=== PATIENT | female | born 1990 | race African-American/Black ===

== ENCOUNTER 2017-12-20 13:35 | Emergency (ER) | payer MEDICAID ==
[~2017-12-20] VITALS: Ht 157.5 cm; Wt 93.6 kg
[2017-12-20 13:39] VITALS: BP 198/119; PULSE 119; RESP 18; TEMP 99.5; O2SAT 99
[2017-12-20] MEDS ORDERED: SODIUM CHLOR 0.9% 1000 ML INJ 1,000 ML IV SCH (14:39)
--- NOTE | 2017-12-20 14:44 | PD ---
HPI Chief Complaint: Pain: Acute or Chronic Time Seen by Provider: 14:39 Travel History International Travel<30 days: No Contact w/Intl Traveler<30days: No Traveled to known affect area: No History of Present Illness HPI This is a 27-year-old female who presents for evaluation. She reports over the past few days she's been having fevers, chills, cough, sore throat, upper abdominal pain. Symptoms are mild to moderate, no aggravating leading factors. She does also endorse generalized chronic myalgias for the past 3 years. She reports that she has been seen at numerous emergency rooms and she was told that she likely has lupus. She has been referred to a drilling superintendent but has been unable to see one yet. She does report that 2 of her children have similar cough and cold symptoms. She has no other complaints at this time. PFS Past Medical History ?: Not Social History Alcohol Use: No Tobacco Use: No Allergies-Medications (Allergen,Severity, Reaction): Coded Allergies: No Known Allergies (Verified Allergy, Unknown, 12/20/17) Review of Systems Except as stated in HPI: all other systems reviewed are Neg Physical Exam Narrative GENERAL: Well-nourished female in no acute distress SKIN: Warm and dry. HEAD: Atraumatic. Normocephalic. EYES: Pupils equal and round. No scleral icterus. No injection or drainage. ENT: No nasal bleeding or discharge. Mucous membranes pink and moist. NECK: Trachea midline. No JVD. Neck supple full range of motion. No lymphadenopathy. CARDIOVASCULAR: Regular rate and rhythm. No murmur appreciated. RESPIRATORY: No accessory muscle use. Clear to auscultation. Breath sounds equal bilaterally. GASTROINTESTINAL: Abdomen soft, mild left upper quadrant tenderness without guarding. No CVA tenderness. MUSCULOSKELETAL: No obvious deformities. No clubbing. No cyanosis. No edema. NEUROLOGICAL: Awake and alert. No obvious cranial nerve deficits. Motor grossly within normal limits. Normal speech. PSYCHIATRIC: Appropriate mood and affect; insight and judgment normal. Data Data Last Documented VS Vital Signs Date Time Temp Pulse Resp B/P (MAP) Pulse Ox O2 Delivery O2 Flow Rate FiO2 12/20/17 16:38 20 12/20/17 16:19 98.6 12/20/17 13:39 119 99 Orders Orders Complete Blood Count With Diff (12/20/17 14:39) Comprehensive Metabolic Panel (12/20/17 14:39) Lipase (12/20/17 14:39) Urinalysis - C+S If Indicated (12/20/17 14:39) Sodium Chlor 0.9% 1000 Ml Inj (Ns 1000 M (12/20/17 14:39) Ketorolac Inj (Toradol Inj) (12/20/17 14:45) Ed Urine Pregnancytest Poc (12/20/17 14:39) Influenzae A/B Antigen (12/20/17 14:39) Chest, Single Ap (12/20/17 ) Group A Rapid Strep Screen (12/20/17 14:39) Acetaminophen (Tylenol) (12/20/17 14:45) Strep Culture (Group A) (12/20/17 14:52) Urine Culture (12/20/17 15:49) Labs Laboratory Tests Test 12/20/17 14:52 12/20/17 15:49 White Blood Count 3.9 TH/MM3 Red Blood Count 4.58 MIL/MM3 Hemoglobin 8.5 GM/DL Hematocrit 27.3 % Mean Corpuscular Volume 59.5 FL Mean Corpuscular Hemoglobin 18.6 PG Mean Corpuscular Hemoglobin Concent 31.3 % Red Cell Distribution Width 22.2 % Platelet Count 616 TH/MM3 Mean Platelet Volume 8.3 FL Neutrophils (%) (Auto) 63.7 % Lymphocytes (%) (Auto) 30.6 % Monocytes (%) (Auto) 5.1 % Eosinophils (%) (Auto) 0.4 % Basophils (%) (Auto) 0.2 % Neutrophils # (Auto) 2.5 TH/MM3 Lymphocytes # (Auto) 1.2 TH/MM3 Monocytes # (Auto) 0.2 TH/MM3 Eosinophils # (Auto) 0.0 TH/MM3 Basophils # (Auto) 0.0 TH/MM3 CBC Comment DIFF FINAL Differential Comment Blood Urea Nitrogen 9 MG/DL Creatinine 0.62 MG/DL Random Glucose 87 MG/DL Total Protein 9.0 GM/DL Albumin 2.4 GM/DL Calcium Level 8.2 MG/DL Alkaline Phosphatase 113 U/L Aspartate Amino Transf (AST/SGOT) 74 U/L Alanine Aminotransferase (ALT/SGPT) 28 U/L Total Bilirubin 0.1 MG/DL Sodium Level 140 MEQ/L Potassium Level 3.4 MEQ/L Chloride Level 107 MEQ/L Carbon Dioxide Level 25.1 MEQ/L Anion Gap 8 MEQ/L Estimat Glomerular Filtration Rate 142 ML/MIN Lipase 52 U/L Urine Color YELLOW Urine Turbidity HAZY Urine pH 6.0 Urine Specific [place] 1.027 Urine Protein 100 mg/dL Urine Glucose (UA) NEG mg/dL Urine Ketones NEG mg/dL Urine Occult Blood MOD Urine Nitrite POS Urine Bilirubin NEG Urine Urobilinogen LESS THAN 2.0 MG/DL Urine Leukocyte Esterase TRACE Urine RBC 15 /hpf Urine WBC 4 /hpf Urine Squamous Epithelial Cells 15 /hpf Urine Amorphous Sediment RARE Urine Bacteria MANY /hpf Urine Mucus MANY /lpf Microscopic Urinalysis Comment CULTURE INDICATED MDM Medical Decision Making Medical Screen Exam Complete: Yes Emergency Medical Condition: Yes Medical Record Reviewed: Yes Differential Diagnosis Pneumonia, bronchitis, influenza, UTI, dehydration, electrolyte abnormality Narrative Course The patient was given IV fluids. Lab work was performed. She does have a microcytic anemia. Her urinalysis, although contaminated, reveals positive nitrites, leukocytes, hematuria. Chest x-ray reveals basilar opacities. The patient be given Levaquin which will cover for community acquired pneumonia as well as urinary tract infection. She does report a history of microcytic anemia. She is encouraged to follow-up with a primary care physician. She is stable for discharge. Diagnosis Primary Impression: UTI (urinary tract infection) Additional Impressions: Pneumonia Microcytic anemia Additional Instructions: Medication as prescribed. Follow up with primary care physician. Return for any emergent medical conditions. Med/Other Pt SpecificInfo: Prescription(s) given Scripts Levofloxacin (Levaquin) 500 Mg Tablet 500 MG PO DAILY for Infection for 7 Days, #7 TAB 0 Refills Prov: Vinnie Campoverde MD 12/20/17 Disposition: 01 DISCHARGE HOME Condition: Stable Giancarlo Castro Dec 20, 2017 14:44
[2017-12-20] MEDS ORDERED: KETOROLAC TROMETHAMINE 30 MG/ML (IVP) VIAL IVP ONE (14:45)
[2017-12-20] MEDS ORDERED: ACETAMINOPHEN 325 MG TAB PO ONE (14:45)
[2017-12-20 15:37] LABS: ALBUMIN 2.4 GM/DL (3.4-5.0); ALT (GPT) 28 U/L (10-53); AST (GOT) 74 U/L (15-37); BICARBONATE 25.1 MEQ/L (21.0-32.0); BLOOD UREA NITROGEN 9 MG/DL (7-18); CALCIUM 8.2 MG/DL (8.5-10.1); CHLORIDE 107 MEQ/L (98-107); CREATININE 0.62 MG/DL (0.50-1.00); GLOMERULAR FILTRATION RATE 142 ML/MIN (>89); GLUCOSE,RANDOM 87 MG/DL (74-106); SODIUM (NA) 140 MEQ/L (136-145)
[2017-12-20 15:39] LABS: ALKALINE PHOSPHATASE 113 U/L (45-117); TOTAL BILIRUBIN ADULT 0.1 MG/DL (0.2-1.0)
[2017-12-20 15:41] LABS: AUTOMATED NEUTROPHIL # 2.5 TH/MM3 (1.8-7.7); BASOPHIL % 0.2 % (0.0-2.0); EOSINOPHIL % 0.4 % (0.0-4.0); HEMATOCRIT 27.3 % (35.0-46.0); HEMOGLOBIN 8.5 GM/DL (11.6-15.3); LYMPH % 30.6 % (9.0-44.0); LYMPHOCYTE # 1.2 TH/MM3 (1.0-4.8); MEAN CELL VOLUME 59.5 FL (80.0-100.0); MEAN CORPUSCULAR HEMOGLOBIN 18.6 PG (27.0-34.0); MEAN CORPUSCULAR HGB CONC 31.3 % (32.0-36.0); MEAN PLATELET VOLUME 8.3 FL (7.0-11.0); MONO % 5.1 % (0.0-8.0); MONOCYTE # 0.2 TH/MM3 (0-0.9); NEUT % 63.7 % (16.0-70.0); PLATELET COUNT 616 TH/MM3 (150-450); RED BLOOD COUNT 4.58 MIL/MM3 (4.00-5.30); RED CELL DISTRIBUTION WIDTH 22.2 % (11.6-17.2); WHITE BLOOD COUNT 3.9 TH/MM3 (4.0-11.0)
[2017-12-20 16:19] VITALS: TEMP 98.6
[2017-12-20 16:27] LABS: AMORPHOUS SEDIMENT, URINE RARE; BACTERIA, URINE MANY /hpf; BILIRUBIN, URINE NEG (NEG); BLOOD, URINE MOD (NEG); GLUCOSE,URINE NEG (NEG); KETONE, URINE NEG (NEG); MUCUS URINE MANY /lpf (OCC); NITRITE,URINE POS (NEG); SQUAMOUS EPITHELIAL CELL URINE 15 /hpf (0-5); URINE COLOR YELLOW (YELLW/STRAW); URINE LEUKOCYTE ESTERASE TRACE (NEG)
[2017-12-20 16:38] VITALS: RESP 20
--- NOTE | 2017-12-20 16:38 | RADRPT ---
EXAM DATE/TIME: 12/20/2017 15:21 [facility] COMPARISON: No previous studies available for comparison. INDICATIONS : Flu symptoms for 2 days. MEDICAL HISTORY : None. SURGICAL HISTORY : None. ENCOUNTER: Initial ACUITY: 2 days PAIN SCORE: 0/10 LOCATION: Bilateral chest FINDINGS: Number mild bibasilar parenchymal opacities identified. A counter for projection, cardiac contours ar e satisfactory. CONCLUSION: Slight basilar parenchymal opacities. Everardo Cosme MD on December 20, 2017 at 16:36 Board Certified Radiologist. This report was verified electronically.
[2017-12-20] MEDS ORDERED: LEVA500T33 PO (16:45)
== END 2017-12-20 17:15 | disposition home or self-care (01) ==
LOC: NEPK 13:35
DX: N39.0 Urinary tract infection, site not specified (principal); B96.20 Unspecified Escherichia coli [E. coli] as the cause of diseases classified elsewhere; J18.9 Pneumonia, unspecified organism; D50.9 Iron deficiency anemia, unspecified; M79.1 Myalgia
CPT/HCPCS: 71045; 80053; 81001; 83690; 84703; 85025; 87077; 87081; 87086; 87186; 87804; 87880; 96360; 96361; 99284; J7030

== ENCOUNTER 2018-01-03 12:59 | Emergency (ER) | payer MEDICAID ==
[~2018-01-03] VITALS: Ht 157.5 cm; Wt 80.0 kg
[~2018-01-03 12:59] MED LIST: LEVA500T33 PO
[2018-01-03 13:01] VITALS: BP 203/112; PULSE 133; RESP 18; TEMP 97.6; O2SAT 95
[2018-01-03] MEDS ORDERED: DICL75TA PO (13:52)
[2018-01-03] MEDS ORDERED: TETANUS/DIPHTHERIA TOXOID ADULT 0.5 ML VIAL IM ONE (14:00)
[2018-01-03] MEDS ORDERED: AUGM875T3 PO (14:03)
--- NOTE | 2018-01-03 14:03 | PD ---
HPI . Dog bite Chief Complaint: Skin Problem Time Seen by Provider: 13:47 Travel History International Travel<30 days: No Contact w/Intl Traveler<30days: No Traveled to known affect area: No History of Present Illness HPI Patient presents with a dog bite to left hand. It occurred yesterday. The dog' s shots are up-to-date. The patient's tetanus is not up-to-date. She denies any known drug allergies. Increased pain at the site today along with a scant amount of purulent drainage. Her pain is very mild. It is exacerbated by palpation. PFSH Past Medical History Autoimmune Disease: Yes (lupus) Diabetes: Yes Patient Takes Glucophage: No ?: Not LMP: 12/08/17 Tubal Ligation: Yes Social History Alcohol Use: No Tobacco Use: No Substance Use: No Allergies-Medications (Allergen,Severity, Reaction): Coded Allergies: No Known Allergies (Verified Allergy, Unknown, 12/20/17) Reported Meds & Prescriptions Reported Meds & Active Scripts Active Reported Diclofenac Sodium DR (Diclofenac Sodium) 75 Mg Tabdr 75 Mg PO BID Review of Systems Except as stated in HPI: all other systems reviewed are Neg General / Constitutional: No: Fever, Chills Skin: Positive Other Physical Exam Narrative GENERAL: Awake and alert and in no acute distress. SKIN: Warm and dry. She has a superficial laceration on the palm of the left hand at the base of the index finger. There is an area about the size of a quarter around the wound which is erythematous and tender. She does have full range of motion of the MCP joint. No pain with movement of the finger. HEAD: Normocephalic/atraumatic. EYES: Pupils are equal. Extraocular movements are intact. NECK: Normal range of motion. CARDIOVASCULAR: Regular rate and rhythm. RESPIRATORY: Nonlabored respirations. MUSCULOSKELETAL: Atraumatic. NEUROLOGICAL: Nonfocal. PSYCHIATRIC: Appropriate mood and affect. Data Data Last Documented VS Vital Signs Date Time Temp Pulse Resp B/P (MAP) Pulse Ox O2 Delivery O2 Flow Rate FiO2 01/03/18 13:01 97.6 133 18 203/112 (142) 95 Orders Orders Tetanus/Diphtheria Tox Adult (Tetanus/Di (01/03/18 14:00) MDM Medical Decision Making Medical Screen Exam Complete: Yes Emergency Medical Condition: Yes Differential Diagnosis Differential diagnosis of animal bite includes but is not limited to wound, wound infection, retained foreign body, open fracture, sepsis, rabies. Narrative Course Patient presents for treatment of a dog bite to her left hand. Tetanus will be updated. She will be treated with Augmentin. The wound looks mildly infected. Diagnosis Primary Impression: Dog bite of hand Qualified Codes: S61.452A - Open bite of left hand, initial encounter; W54.0XXA - Bitten by dog, initial encounter Patient Instructions: Animal Bite (DC), General Instructions Med/Other Pt SpecificInfo: Prescription(s) given Scripts Amoxicillin-Clavulanate (Augmentin) 875-125 Mg Tab 1 TAB PO BID for Infection, #10 TAB 0 Refills Prov: Shiloh Forbes MD 01/03/18 Disposition: 01 DISCHARGE HOME Condition: Stable Shiloh Forbes MD Jan 03, 2018 14:03
== END 2018-01-03 14:41 | disposition home or self-care (01) ==
LOC: NEPD 12:59
DX: S61.452A Open bite of left hand, initial encounter (principal); W54.0XXA Bitten by dog, initial encounter; Z23 Encounter for immunization
CPT/HCPCS: 90471; 90714

== ENCOUNTER 2018-01-14 23:55 | Emergency (ER) | payer MEDICAID ==
[~2018-01-14] VITALS: Ht 157.5 cm; Wt 80.0 kg
[~2018-01-14 23:55] MED LIST changes: +AUGM875T3 PO; +DICL75TA PO; -LEVA500T33 PO
[2018-01-15 00:23] VITALS: BP 189/119; PULSE 117; RESP 16; TEMP 98.5; O2SAT 99
[2018-01-15 05:24] VITALS: BP 183/106; PULSE 113; RESP 16; O2SAT 98
[2018-01-15] MEDS ORDERED: FERR325T18 PO (05:27)
[2018-01-15] MEDS ORDERED: MELO15TA20 PO (05:27)
[2018-01-15] MEDS ORDERED: PRED5TAB PO (05:27)
[2018-01-15] MEDS ORDERED: LABETALOL HCL 100 MG/20 ML VIAL IV PUSH ONE (05:45)
--- NOTE | 2018-01-15 05:53 | PD ---
HPI Chief Complaint: Chest Pain Time Seen by Provider: 05:18 Travel History International Travel<30 days: No Contact w/Intl Traveler<30days: No Traveled to known affect area: No History of Present Illness HPI 27-year-old female complaining of myalgia and arthralgia chest pain and elevated blood pressure. Patient states that his symptoms started a few years ago. Patient has been seen by family physician for that. Patient has history of hypoglycemia. Patient was seen by energy professional yesterday and was advised that she probably had fluid in her lung and also blood pressure was elevated. Patient was advised to go to the emergency room for evaluation. Patient denies any headache. Patient denies any visual change. Patient denies any neck pain. Patient states that she had intermittent substernal chest pressure which lasted a few seconds and resolved completely. Patient states her chest pain is not associated with exertion. Patient states that she had intermittent that the cough. Patient states that she had intermittent fever at home. Patient denies abdominal pain. Patient denies any nausea vomiting diarrhea. Patient states that she has diffuse extremity pain and swelling for years. Patient denies any family history of lupus or rheumatoid arthritis. Patient denies any history of thyroid disease. Patient is on iron pills, prednisone 5 mg daily for the past 2 weeks and diclofenac 75 mg daily. PFSH Past Medical History Autoimmune Disease: Yes (lupus) Diabetes: Yes Patient Takes Glucophage: No Tetanus Vaccination: < 5 Years Influenza Vaccination: No ?: Not LMP: 12/22/2017 Tubal Ligation: Yes Social History Alcohol Use: No Tobacco Use: No Substance Use: No Allergies-Medications (Allergen,Severity, Reaction): Coded Allergies: No Known Allergies (Verified Allergy, Unknown, 01/15/18) Reported Meds & Prescriptions Reported Meds & Active Scripts Active Reported Ferrous Sulfate 325 Mg (65 Mg Iron) Tablet 325 Mg PO DAILY Prednisone 5 Mg Tab 5 Mg PO DAILY Meloxicam 15 Mg Tab 15 Mg PO DAILY Diclofenac Sodium DR (Diclofenac Sodium) 75 Mg Tabdr 75 Mg PO BID Review of Systems General / Constitutional: No: Fever Eyes: No: Visual changes HENT: No: Headaches Cardiovascular: Positive: Chest Pain or Discomfort Respiratory: Positive: Cough, No: Shortness of Breath Gastrointestinal: No: Abdominal Pain Genitourinary: No: Dysuria Musculoskeletal: Positive: Edema, Pain Skin: No Rash Neurologic: No: Weakness Psychiatric: No: Depression Endocrine: No: Polydipsia Hematologic/Lymphatic: No: Easy Bruising Physical Exam Narrative GENERAL: Well-nourished, well-developed patient. SKIN: Focused skin assessment warm/dry. HEAD: Normocephalic. EYES: No scleral icterus. No injection or drainage. NECK: Supple, trachea midline. No JVD or lymphadenopathy. CARDIOVASCULAR: Regular rate and rhythm without murmurs, gallops, or rubs. RESPIRATORY: Breath sounds equal bilaterally. No accessory muscle use. Patient has few rhonchi at the bases. GASTROINTESTINAL: Abdomen soft, non-tender, nondistended. MUSCULOSKELETAL: No cyanosis. Patient had blood on the +2 pitting edema lower extremity. BACK: Nontender without obvious deformity. No CVA tenderness. Neurologic exam: Normal. Data Data Last Documented VS Vital Signs Date Time Temp Pulse Resp B/P (MAP) Pulse Ox O2 Delivery O2 Flow Rate FiO2 01/15/18 06:25 105 16 162/83 (109) 100 Room Air 01/15/18 00:23 98.5 Orders Orders Electrocardiogram (01/15/18 05:35) Complete Blood Count With Diff (01/15/18 05:35) Comprehensive Metabolic Panel (01/15/18 05:35) Creatine Kinase (Cpk) (01/15/18 05:35) Troponin I (01/15/18 05:35) B-Type Natriuretic Peptide (01/15/18 05:35) Prothrombin Time / Inr (Pt) (01/15/18 05:35) Act Partial Throm Time (Ptt) (01/15/18 05:35) Urinalysis - C+S If Indicated (01/15/18 05:35) Thyroid Stimulating Hormone (01/15/18 05:35) Chest, Single Ap (01/15/18 05:35) Iv Access Insert/Monitor (01/15/18 05:35) Ecg Monitoring (01/15/18 05:35) Oximetry (01/15/18 05:35) Labetalol Inj (Trandate Inj) (01/15/18 05:45) D-Dimer (01/15/18 05:30) Labs Laboratory Tests Test 01/15/18 05:30 White Blood Count 3.3 TH/MM3 Red Blood Count 4.50 MIL/MM3 Hemoglobin 8.1 GM/DL Hematocrit 26.4 % Mean Corpuscular Volume 58.7 FL Mean Corpuscular Hemoglobin 18.0 PG Mean Corpuscular Hemoglobin Concent 30.7 % Red Cell Distribution Width 21.8 % Platelet Count 504 TH/MM3 Mean Platelet Volume 8.1 FL Neutrophils (%) (Auto) 61.7 % Lymphocytes (%) (Auto) 33.9 % Monocytes (%) (Auto) 3.7 % Eosinophils (%) (Auto) 0.4 % Basophils (%) (Auto) 0.3 % Neutrophils # (Auto) 2.1 TH/MM3 Lymphocytes # (Auto) 1.1 TH/MM3 Monocytes # (Auto) 0.1 TH/MM3 Eosinophils # (Auto) 0.0 TH/MM3 Basophils # (Auto) 0.0 TH/MM3 CBC Comment DIFF FINAL Differential Comment Prothrombin Time 10.5 SEC Prothromb Time International Ratio 1.0 RATIO Activated Partial Thromboplast Time 25.0 SEC D-Dimer Quantitative (PE/DVT) 16.51 MG/L FEU Blood Urea Nitrogen 14 MG/DL Creatinine 0.78 MG/DL Random Glucose 97 MG/DL Total Protein 8.5 GM/DL Albumin 2.2 GM/DL Calcium Level 8.4 MG/DL Alkaline Phosphatase 118 U/L Aspartate Amino Transf (AST/SGOT) 32 U/L Alanine Aminotransferase (ALT/SGPT) 12 U/L Total Bilirubin 0.2 MG/DL Sodium Level 140 MEQ/L Potassium Level 3.8 MEQ/L Chloride Level 107 MEQ/L Carbon Dioxide Level 25.5 MEQ/L Anion Gap 8 MEQ/L Estimat Glomerular Filtration Rate 109 ML/MIN Total Creatine Kinase 107 U/L Troponin I LESS THAN 0.02 NG/ML B-Type Natriuretic Peptide 99 PG/ML Thyroid Stimulating Hormone 3rd Gen 3.950 uIU/ML MDM Medical Decision Making Medical Screen Exam Complete: Yes Emergency Medical Condition: Yes Interpretation(s) 6:53 AM. EKG showed sinus tachycardia rate 111. Nonspecific ST-T wave change. Last Impressions Chest X-Ray 01/15/18 0535 Signed Impressions: Service Date/Time: Monday, January 15, 2018 05:52 - CONCLUSION: Stable chest x-ray with underinflation and atelectasis at the lung bases. Everardo Castro MD CBC WBC 3.3. Hemoglobin 8.1. Hematocrit 26.4. MCV 58.7. Platelets 504. Normal differential. Cardiac enzymes are normal. BNP 99. TSH 3.95. D-dimer 16.51. Differential Diagnosis Differential diagnoses including myalgia arthralgia, rheumatoid arthritis, lupus , uncontrolled hypertension. Narrative Course 27-year-old female with intermittent chest pain, coughing, myalgia or arthralgia and swelling of the joints. Patient being workup for rheumatoid arthritis. Fritz Sutton MD Jan 15, 2018 05:53
[2018-01-15 06:12] LABS: AUTOMATED NEUTROPHIL # 2.1 TH/MM3 (1.8-7.7); BASOPHIL % 0.3 % (0.0-2.0); EOSINOPHIL % 0.4 % (0.0-4.0); HEMATOCRIT 26.4 % (35.0-46.0); HEMOGLOBIN 8.1 GM/DL (11.6-15.3); LYMPH % 33.9 % (9.0-44.0); LYMPHOCYTE # 1.1 TH/MM3 (1.0-4.8); MEAN CELL VOLUME 58.7 FL (80.0-100.0); MEAN CORPUSCULAR HGB CONC 30.7 % (32.0-36.0); MEAN PLATELET VOLUME 8.1 FL (7.0-11.0); MONO % 3.7 % (0.0-8.0); MONOCYTE # 0.1 TH/MM3 (0-0.9); NEUT % 61.7 % (16.0-70.0); PLATELET COUNT 504 TH/MM3 (150-450); RED CELL DISTRIBUTION WIDTH 21.8 % (11.6-17.2); WHITE BLOOD COUNT 3.3 TH/MM3 (4.0-11.0)
--- NOTE | 2018-01-15 06:16 | RADRPT ---
EXAM DATE/TIME: 01/15/2018 05:52 [facility] COMPARISON: CHEST SINGLE AP, December 20, 2017, 15:21. INDICATIONS : Chest pain. MEDICAL HISTORY : None. SURGICAL HISTORY : None. ENCOUNTER: Initial ACUITY: 1 day PAIN SCORE: 10 LOCATION: Bilateral chest FINDINGS: Portable AP view of the chest demonstrates enlargement of the cardiac silhouette. Lungs are underinfl ated with atelectasis at the lung bases. No effusion, consolidation, or pneumothorax is identified. T he bones and soft tissues demonstrate no acute finding. CONCLUSION: Stable chest x-ray with underinflation and atelectasis at the lung bases. Everardo Castro MD on January 15, 2018 at 6:14 Board Certified Radiologist. This report was verified electronically.
[2018-01-15 06:25] VITALS: BP 162/83; PULSE 105; RESP 16; O2SAT 100
[2018-01-15 06:28] LABS: ALBUMIN 2.2 GM/DL (3.4-5.0); ALT (GPT) 12 U/L (10-53); AST (GOT) 32 U/L (15-37); BICARBONATE 25.5 MEQ/L (21.0-32.0); BLOOD UREA NITROGEN 14 MG/DL (7-18); CALCIUM 8.4 MG/DL (8.5-10.1); CHLORIDE 107 MEQ/L (98-107); CREATININE 0.78 MG/DL (0.50-1.00); GLOMERULAR FILTRATION RATE 109 ML/MIN (>89); GLUCOSE,RANDOM 97 MG/DL (74-106); SODIUM (NA) 140 MEQ/L (136-145)
[2018-01-15 06:34] LABS: PROTHROMBIN TIME - PATIENT 10.5 SEC (9.8-11.6)
[2018-01-15 06:37] LABS: ALKALINE PHOSPHATASE 118 U/L (45-117); TOTAL BILIRUBIN ADULT 0.2 MG/DL (0.2-1.0); TOTAL PROTEIN 8.5 GM/DL (6.4-8.2); TROPONIN I LESS THAN 0.02 NG/ML (0.02-0.05)
[2018-01-15 06:49] LABS: D-DIMER 16.51 MG/L FEU (0.00-0.50)
[2018-01-15] MEDS ORDERED: IOHEXOL 350 MG/ML 10 ML VIAL (for RAD DIAG) IVCONTRAST ONE (07:32)
--- NOTE | 2018-01-15 07:54 | RADRPT ---
EXAM DATE/TIME: 01/15/2018 07:29 [facility] COMPARISON: No previous studies available for comparison. INDICATIONS : Chest pain IV CONTRAST: 78 cc Omnipaque 350 (iohexol) IV RADIATION DOSE: 17.29 CTDIvol (mGy) MEDICAL HISTORY : Lupus. Diabetes mellitus type 1. SURGICAL HISTORY : None. ENCOUNTER: Initial ACUITY: 1 day PAIN SCALE: 5/10 LOCATION: Chest pain TECHNIQUE: Volumetric scanning of the chest was performed using a pulmonary embolism protocol MIP images were re constructed. Using automated exposure control and adjustment of the mA and/or kV according to patien t size, radiation dose was kept as low as reasonably achievable to obtain optimal diagnostic quality images. DICOM format image data is available electronically for review and comparison. Follow-up recommendations for detected pulmonary nodules are based at a minimum on nodule size and pa tient risk factors according to Fleischner Society Guidelines. FINDINGS: PULMONARY ARTERIES: No filling defects are seen in the pulmonary arteries through the segmental level. LUNGS: The lungs are hypoaerated. There is no significant airspace disease or congestion. Minimal atelectasi s is identified in the bases. PLEURAE: Minimal pleural thickening is identified in both lung bases posteriorly. MEDIASTINUM: The heart is moderately to markedly enlarged. There are no hilar mediastinal masses. MUSCULOSKELETAL: Within normal limits for patient age. MISCELLANEOUS: Multiple enlarged lymph nodes are identified in the axilla ranging in size up to 2.2 cm. The visualiz ed upper abdominal organs demonstrate no acute abnormality. CONCLUSION: 1. No evidence of pulmonary embolism. 2. Poor lung aeration with minimal basilar atelectasis but no evidence of significant congestion or c onsolidating airspace disease. 3. Moderate to marked cardiomegaly. 4. Axillary lymphadenopathy. Tano Palm MD on January 15, 2018 at 7:45 Board Certified Radiologist. This report was verified electronically.
[2018-01-15] MEDS ORDERED: traMADol HCL 50 MG TAB PO ONE (08:15)
[2018-01-15] MEDS ORDERED: TRAM50TA PO (08:17)
--- NOTE | 2018-01-15 08:17 | PD ---
Physical Exam Date Seen by Provider: Jan 15, 2018 Time Seen by Provider: 07:00 Narrative Patient signed out to me at [address] Sutton, please see previous notes for further details. She apparently has been having chest pains, tachycardia, was sent in by physician for further evaluation. Initial workup shows a elevated d- dimer. Normal chest x-ray and cardiac enzymes are found. CTA was ordered for further evaluation. EKG apparently shows sinus tachycardia but no other acute ST changes. Laboratory Tests Test 01/15/18 05:30 White Blood Count 3.3 TH/MM3 (4.0-11.0) Hemoglobin 8.1 GM/DL (11.6-15.3) Hematocrit 26.4 % (35.0-46.0) Mean Corpuscular Volume 58.7 FL (80.0-100.0) Mean Corpuscular Hemoglobin 18.0 PG (27.0-34.0) Mean Corpuscular Hemoglobin Concent 30.7 % (32.0-36.0) Red Cell Distribution Width 21.8 % (11.6-17.2) Platelet Count 504 TH/MM3 (150-450) D-Dimer Quantitative (PE/DVT) 16.51 MG/L FEU (0.00-0.50) Total Protein 8.5 GM/DL (6.4-8.2) Albumin 2.2 GM/DL (3.4-5.0) Calcium Level 8.4 MG/DL (8.5-10.1) Alkaline Phosphatase 118 U/L (45-117) Troponin I LESS THAN 0.02 NG/ML Thyroid Stimulating Hormone 3rd Gen 3.950 uIU/ML (0.358-3.740) Last [address] Angiography 01/15/18 0656 Signed Impressions: Service Date/Time: Monday, January 15, 2018 07:29 - CONCLUSION: 1. No evidence of pulmonary embolism. 2. Poor lung aeration with minimal basilar atelectasis but no evidence of significant congestion or consolidating airspace disease. 3. Moderate to marked cardiomegaly. 4. Axillary lymphadenopathy. Tano Palm MD Chest X-Ray 01/15/18 0535 Signed Impressions: Service Date/Time: Monday, January 15, 2018 05:52 - CONCLUSION: Stable chest x-ray with underinflation and atelectasis at the lung bases. Everardo Castro MD CAT scan did not show any signs of PE. She has anemia which patient has had chronically and is on iron. At this point, I have offered to admit the patient to chest pain center versus outpatient follow-up with further evaluation for ongoing chest pains and at this point, she declines admission to chest pain center. She will need follow-up as an outpatient regarding chest pain with primary care and cardiology. She should return for any worsening in symptoms as needed. The plan was discussed with her and she states understanding. In addition, she is asking me for further pain management for her joint pains, currently being evaluated for rheumatoid arthritis versus lupus. Data Data Last Documented VS Vital Signs Date Time Temp Pulse Resp B/P (MAP) Pulse Ox O2 Delivery O2 Flow Rate FiO2 01/15/18 06:25 105 16 162/83 (109) 100 Room Air 01/15/18 00:23 98.5 Orders Orders Electrocardiogram (01/15/18 05:35) Complete Blood Count With Diff (01/15/18 05:35) Comprehensive Metabolic Panel (01/15/18 05:35) Creatine Kinase (Cpk) (01/15/18 05:35) Troponin I (01/15/18 05:35) B-Type Natriuretic Peptide (01/15/18 05:35) Prothrombin Time / Inr (Pt) (01/15/18 05:35) Act Partial Throm Time (Ptt) (01/15/18 05:35) Urinalysis - C+S If Indicated (01/15/18 05:35) Thyroid Stimulating Hormone (01/15/18 05:35) Chest, Single Ap (01/15/18 05:35) Iv Access Insert/Monitor (01/15/18 05:35) Ecg Monitoring (01/15/18 05:35) Oximetry (01/15/18 05:35) Labetalol Inj (Trandate Inj) (01/15/18 05:45) D-Dimer (01/15/18 05:30) Ct Pulmonary Angiogram (01/15/18 06:56) Electrocardiogram (01/15/18 00:41) Iohexol 350 Inj (Omnipaque 350 Inj) (01/15/18 07:32) Tramadol (Ultram) (01/15/18 08:15) Ed Discharge Order (01/15/18 08:14) Labs Laboratory Tests Test 01/15/18 05:30 White Blood Count 3.3 TH/MM3 Red Blood Count 4.50 MIL/MM3 Hemoglobin 8.1 GM/DL Hematocrit 26.4 % Mean Corpuscular Volume 58.7 FL Mean Corpuscular Hemoglobin 18.0 PG Mean Corpuscular Hemoglobin Concent 30.7 % Red Cell Distribution Width 21.8 % Platelet Count 504 TH/MM3 Mean Platelet Volume 8.1 FL Neutrophils (%) (Auto) 61.7 % Lymphocytes (%) (Auto) 33.9 % Monocytes (%) (Auto) 3.7 % Eosinophils (%) (Auto) 0.4 % Basophils (%) (Auto) 0.3 % Neutrophils # (Auto) 2.1 TH/MM3 Lymphocytes # (Auto) 1.1 TH/MM3 Monocytes # (Auto) 0.1 TH/MM3 Eosinophils # (Auto) 0.0 TH/MM3 Basophils # (Auto) 0.0 TH/MM3 CBC Comment DIFF FINAL Differential Comment Prothrombin Time 10.5 SEC Prothromb Time International Ratio 1.0 RATIO Activated Partial Thromboplast Time 25.0 SEC D-Dimer Quantitative (PE/DVT) 16.51 MG/L FEU Blood Urea Nitrogen 14 MG/DL Creatinine 0.78 MG/DL Random Glucose 97 MG/DL Total Protein 8.5 GM/DL Albumin 2.2 GM/DL Calcium Level 8.4 MG/DL Alkaline Phosphatase 118 U/L Aspartate Amino Transf (AST/SGOT) 32 U/L Alanine Aminotransferase (ALT/SGPT) 12 U/L Total Bilirubin 0.2 MG/DL Sodium Level 140 MEQ/L Potassium Level 3.8 MEQ/L Chloride Level 107 MEQ/L Carbon Dioxide Level 25.5 MEQ/L Anion Gap 8 MEQ/L Estimat Glomerular Filtration Rate 109 ML/MIN Total Creatine Kinase 107 U/L Troponin I LESS THAN 0.02 NG/ML B-Type Natriuretic Peptide 99 PG/ML Thyroid Stimulating Hormone 3rd Gen 3.950 uIU/ML [facility] Medical Record Reviewed: Yes Supervised Visit with SONIA: No Diagnosis Primary Impression: Chest pain Med/Other Pt SpecificInfo: Prescription(s) given Scripts Tramadol (Tramadol) 50 Mg Tab 50 MG PO Q6H Y for PAIN, #10 TAB 0 Refills Prov: Soontharothai,Rewadee MD 01/15/18 Disposition: 01 DISCHARGE HOME Condition: Stable Kristofer Jean MD Jan 15, 2018 08:17
[2018-01-15 09:50] VITALS: BP 148/84; PULSE 114; RESP 18; O2SAT 98
--- NOTE | 2018-01-15 18:43 | EKG ---
Date Performed: 01/15/2018 Time Performed: 00:41:32 PTAGE: 27 years EKG: SINUS TACHYCARDIA NONSPECIFIC T-WAVE ABNORMALITY ABNORMAL RHYTHM ECG NO PREVIOUS TRACING DOCTOR: Chang Espinosa Interpretating Date/Time 01/15/2018 18:42:09
--- NOTE | 2018-01-16 07:50 | EKG ---
Date Performed: 01/15/2018 Time Performed: 05:30:30 PTAGE: 27 years EKG: SINUS TACHYCARDIA ABNORMAL RHYTHM ECG PREVIOUS TRACING : 01/15/[address]-T abnormality. Since the prior tracin g, there has been no significant change. DOCTOR: Chang Espinosa Interpretating Date/Time 01/16/2018 07:49:20
== END 2018-01-15 11:39 | disposition home or self-care (01) ==
LOC: NEPC 23:55
DX: R07.9 Chest pain, unspecified (principal); I51.7 Cardiomegaly; R94.31 Abnormal electrocardiogram [ECG] [EKG]; R00.0 Tachycardia, unspecified; D64.9 Anemia, unspecified; R59.0 Localized enlarged lymph nodes
CPT/HCPCS: 71045; 71275; 80053; 82550; 83880; 84443; 84484; 85025; 85379; 85610; 85730; 93005; 96374; 99285; Q9967

== ENCOUNTER 2018-02-20 10:46 | Inpatient (IN) | payer MEDICAID ==
[~2018-02-20] VITALS: Ht 154.9 cm; Wt 83.2 kg
[2018-02-20] VITALS (14 sets, daily range): BP systolic 103–153; BP diastolic 57–84; PULSE 66–156; RESP 20–32; TEMP 98.4–103; O2SAT 87–99
[~2018-02-20 10:46] MED LIST changes: -AUGM875T3 PO; +FERR325T18 PO; +MELO15TA20 PO; +PRED5TAB PO; +TRAM50TA PO
[2018-02-20] MEDS ORDERED: IOHEXOL 350 MG/ML 10 ML VIAL (for RAD DIAG) IVCONTRAST ONE (10:47)
[2018-02-20] MEDS ORDERED: SODIUM CHLOR 0.9% 1000 ML INJ 1,000 ML IV SCH (11:09)
[2018-02-20] MEDS ORDERED: ZOFR4TAB PO (11:11)
[2018-02-20] MEDS ORDERED: PRED10 PO (11:11)
[2018-02-20] MEDS ORDERED: AMLO5TAB2 PO (11:11)
--- NOTE | 2018-02-20 11:14 | PD ---
HPI Chief Complaint: Respiratory Symptoms Time Seen by Provider: 10:59 Travel History International Travel<30 days: No Contact w/Intl Traveler<30days: No Traveled to known affect area: No History of Present Illness HPI 27-year-old female 27-year-old female presents with her mother for evaluation of chest pain shortness of breath. Symptoms started yesterday. She reports a sharp substernal chest pain which is worse with inspiration. Symptoms are constant, no relieving factors. The mother reports that the patient was diagnosed with lupus 2 days ago and prescribed prednisone. The mother reports that yesterday she noticed some bright red blood per rectum when she wiped. She reports that she had routine blood work performed on February 02 Which she has with her. Her hemoglobin at that time was 7.6. She denies any history of sickle cell disease. She reports that she has been having arthralgias and myalgias for several months, initially unknown etiology until she was diagnosed with lupus on Sunday, for which she was initially taking 6 ibuprofen 200 mg tablets a day. This was discontinued a few weeks ago and since then she has been prescribed meloxicam which she has been taking. She denies any black or tarry stools. She denies any fevers or chills. Denies lower extremity edema. She has no other complaints. PENDING SALE TO [facility] Past Medical History Autoimmune Disease: Yes (lupus) Diabetes: Yes Patient Takes Glucophage: No Diminished Hearing: No ?: Not LMP: December Tubal Ligation: Yes Past Surgical History Section: Yes (x2) Social History Alcohol Use: No Tobacco Use: No Substance Use: No Allergies-Medications (Allergen,Severity, Reaction): Coded Allergies: No Known Allergies (Verified Allergy, Unknown, 01/15/18) Reported Meds & Prescriptions Reported Meds & Active Scripts Active Reported Zofran (Ondansetron HCl) 4 Mg Tab 4 Mg PO Q6HR PRN Prednisone 10 Mg Tab 10 Mg PO TID Amlodipine (Amlodipine Besylate) 5 Mg Tab 5 Mg PO DAILY Ferrous Sulfate 325 Mg (65 Mg Iron) Tablet 325 Mg PO DAILY Review of Systems Except as stated in HPI: all other systems reviewed are Neg Physical Exam Narrative GENERAL: Well-developed well-nourished female who appears uncomfortable. She is tachypneic, tachycardic with an oxygen saturation of 90%. SKIN: Warm and dry. HEAD: Atraumatic. Normocephalic. EYES: Pupils equal and round. No scleral icterus. No injection or drainage. ENT: No nasal bleeding or discharge. Mucous membranes pink and moist. NECK: Trachea midline. No JVD. CARDIOVASCULAR: Regular rate and rhythm. No murmur appreciated. RESPIRATORY: Tachypneic. Mild wheezing bilaterally. No crackles. GASTROINTESTINAL: Abdomen soft, non-tender, nondistended. Hepatic and splenic margins not palpable. Rectal examination in the presence of a female nurse reveals dark brown stool which is heme positive. MUSCULOSKELETAL: No obvious deformities. No edema. NEUROLOGICAL: Awake and alert. No obvious cranial nerve deficits. Motor grossly within normal limits. Normal speech. Data Data Last Documented VS Vital Signs Date Time Temp Pulse Resp B/P (MAP) Pulse Ox O2 Delivery O2 Flow Rate FiO2 02/20/18 12:45 135 24 129/73 (91) 95 Nasal Cannula 2.00 02/20/18 10:51 98.4 Orders Orders Electrocardiogram (02/20/18 11:09) Ckmb (Isoenzyme) Profile (02/20/18 11:09) Complete Blood Count With Diff (02/20/18 11:) Comprehensive Metabolic Panel (02/20/18 11:09) Magnesium (Mg) (02/20/18 11:09) Prothrombin Time / Inr (Pt) (02/20/18 11:09) Act Partial Throm Time (Ptt) (02/20/18 11:09) Troponin I (02/20/18 11:09) Ecg Monitoring (02/20/18 11:09) Bilateral Bp Monitoring (02/20/18 11:) Iv Access Insert/Monitor (02/20/18 11:) Oximetry (02/20/18 11:09) Oxygen Administration (02/20/18 11:09) Sodium Chloride 0.9% Flush (Ns Flush) (02/20/18 11:15) Chest, Pa & Lat (02/20/18 11:09) Type And Screen (02/20/18 11:09) D-Dimer (02/20/18 11:09) Sodium Chlor 0.9% 1000 Ml Inj (Ns 1000 M (02/20/18 11:09) Albuterol-Ipratropium Neb (Duoneb Neb) (02/20/18 11:15) Ed Urine Pregnancytest Poc (02/20/18 11:32) Morphine Inj (Morphine Inj) (02/20/18 11:45) Ondansetron Inj (Zofran Inj) (02/20/18 11:45) Pantoprazole Inj (Protonix Inj) (02/20/18 12:30) Ct Pulmonary Angiogram (02/20/18 12:24) Lactic Acid Sepsis Protocol (02/20/18 12:38) Blood Culture (02/20/18 12:38) Ceftriaxone Inj (Rocephin Inj) (02/20/18 12:45) Azithromycin Inj (Zithromax Inj) (02/20/18 12:45) Iohexol 350 Inj (Omnipaque 350 Inj) (02/20/18 10:47) Admit Order (Ed Use Only) (02/20/18 14:05) Labs Laboratory Tests Test 02/20/18 11:30 02/20/18 13:00 White Blood Count 14.0 TH/MM3 Red Blood Count 4.50 MIL/MM3 Hemoglobin 8.0 GM/DL Hematocrit 26.3 % Mean Corpuscular Volume 58.3 FL Mean Corpuscular Hemoglobin 17.8 PG Mean Corpuscular Hemoglobin Concent 30.5 % Red Cell Distribution Width 23.3 % Platelet Count 787 TH/MM3 Mean Platelet Volume 8.3 FL Neutrophils (%) (Auto) 84.9 % Lymphocytes (%) (Auto) 10.7 % Monocytes (%) (Auto) 4.1 % Eosinophils (%) (Auto) 0.0 % Basophils (%) (Auto) 0.3 % Neutrophils # (Auto) 11.9 TH/MM3 Lymphocytes # (Auto) 1.5 TH/MM3 Monocytes # (Auto) 0.6 TH/MM3 Eosinophils # (Auto) 0.0 TH/MM3 Basophils # (Auto) 0.0 TH/MM3 CBC Comment AUTO DIFF Differential Comment AUTO DIFF CONFIRMED Platelet Estimate HIGH Platelet Morphology Comment ENLARGED Tear Drop Cells 1+ Ovalocytes 1+ Acanthocytes OCC Prothrombin Time 10.0 SEC Prothromb Time International Ratio 1.0 RATIO Activated Partial Thromboplast Time 23.3 SEC D-Dimer Quantitative (PE/DVT) 13.29 MG/L FEU Blood Urea Nitrogen 17 MG/DL Creatinine 0.91 MG/DL Random Glucose 91 MG/DL Total Protein 8.6 GM/DL Albumin 1.6 GM/DL Calcium Level 8.3 MG/DL Magnesium Level 1.8 MG/DL Alkaline Phosphatase 192 U/L Aspartate Amino Transf (AST/SGOT) 32 U/L Alanine Aminotransferase (ALT/SGPT) 10 U/L Total Bilirubin 0.1 MG/DL Sodium Level 139 MEQ/L Potassium Level 4.2 MEQ/L Chloride Level 108 MEQ/L Carbon Dioxide Level 25.9 MEQ/L Anion Gap 5 MEQ/L Estimat Glomerular Filtration Rate 91 ML/MIN Total Creatine Kinase 43 U/L Troponin I LESS THAN 0.02 NG/ML Lactic Acid Level 1.1 mmol/L MDM Medical Decision Making Medical Screen Exam Complete: Yes Emergency Medical Condition: Yes Medical Record Reviewed: Yes Differential Diagnosis Symptomatic anemia, spontaneous pneumothorax, pulmonary embolism, arrhythmia, pneumonia, reactive airway disease, GI bleed Narrative Course 27-year-old female with 2 days of chest pain and shortness of breath. On initial examination she is tachypneic, tachycardic, oxygen saturation is 90% on room air. She has dark brown heme positive stool. The patient was placed on ECG monitoring pulse oximetry. A 12-lead EKG was obtained revealing sinus tachycardia with a rate of 141. Lab work, type and screen, chest x-ray were ordered. The patient was placed on oxygen. DuoNeb treatment was ordered. IV fluid bolus was ordered. Chest x-ray reveals CONCLUSION: 1. Poor inspiratory effort with mild airspace disease in the left lower lung zone which may reflect atelectasis although pneumonia cannot be excluded in the appropriate clinical setting. 2. Cardiomegaly. D-dimer was elevated at [address] pulmonary angiogram was ordered. Hemoglobin is 8 which is stable in comparison to previous hemoglobin on record in January. WBC count is 14. CMP is unremarkable. IV Rocephin and azithromycin initiated. CT pulmonary angiogram reveals CONCLUSION: Consolidative changes right lower lobe Left axillary adenopathy that has progressed in the interval. Findings are suspicious for inflammatory process. The patient will be admitted for further treatment. HemaPrompt Point of Care Internal Pos. & Neg. Controls: Passed Fecal Specimen Occult Blood: Positive Sepsis Criteria SIRS Criteria (2 or more): Heart rate over 90, RR > 20 or PaCO2 < 32, WBC > 60119, < 4000 or > 10% bands Sepsis Criteria (SIRS+source): Infect source susp/known Criteria Outcome: Meets sepsis criteria Diagnosis Primary Impression: Community acquired pneumonia Additional Impressions: Hypoxia Sepsis Stool guaiac positive Admitting Information Admitting Physician Requests: Admit Giancarlo Castro Feb 20, 2018 11:14
[2018-02-20] MEDS ORDERED: RESP: ALBUTEROL 2.5 MG/IPRATROPIUM 0.5 MG NEB (SCH) INH ONE (11:15)
[2018-02-20] MEDS ORDERED: SODIUM CHLORIDE 0.9% FLUSH 10 ML FLUSH IVF PRN (11:15)
[2018-02-20] MEDS ORDERED: MORPHINE SULFATE 4 MG/ML INJ IV PUSH ONE (11:45)
[2018-02-20] MEDS ORDERED: ONDANSETRON HCL 4 MG/2 ML VIAL IV PUSH ONE (11:45)
[2018-02-20 11:57] LABS: AUTOMATED NEUTROPHIL # 11.9 TH/MM3 (1.8-7.7); BASOPHIL % 0.3 % (0.0-2.0); HEMATOCRIT 26.3 % (35.0-46.0); LYMPH % 10.7 % (9.0-44.0); LYMPHOCYTE # 1.5 TH/MM3 (1.0-4.8); MEAN CELL VOLUME 58.3 FL (80.0-100.0); MEAN CORPUSCULAR HEMOGLOBIN 17.8 PG (27.0-34.0); MEAN CORPUSCULAR HGB CONC 30.5 % (32.0-36.0); MEAN PLATELET VOLUME 8.3 FL (7.0-11.0); MONO % 4.1 % (0.0-8.0); MONOCYTE # 0.6 TH/MM3 (0-0.9); NEUT % 84.9 % (16.0-70.0); PLATELET COUNT 787 TH/MM3 (150-450); RED CELL DISTRIBUTION WIDTH 23.3 % (11.6-17.2)
[2018-02-20 12:07] LABS: ALBUMIN 1.6 GM/DL (3.4-5.0); ALT (GPT) 10 U/L (10-53); AST (GOT) 32 U/L (15-37); BICARBONATE 25.9 MEQ/L (21.0-32.0); BLOOD UREA NITROGEN 17 MG/DL (7-18); CALCIUM 8.3 MG/DL (8.5-10.1); CHLORIDE 108 MEQ/L (98-107); CREATININE 0.91 MG/DL (0.50-1.00); GLOMERULAR FILTRATION RATE 91 ML/MIN (>89); GLUCOSE,RANDOM 91 MG/DL (74-106); MAGNESIUM 1.8 MG/DL (1.5-2.5); SODIUM (NA) 139 MEQ/L (136-145)
[2018-02-20 12:12] LABS: ALKALINE PHOSPHATASE 192 U/L (45-117); TOTAL BILIRUBIN ADULT 0.1 MG/DL (0.2-1.0); TOTAL PROTEIN 8.6 GM/DL (6.4-8.2); TROPONIN I LESS THAN 0.02 NG/ML (0.02-0.05)
[2018-02-20 12:20] LABS: D-DIMER 13.29 MG/L FEU (0.00-0.50)
[2018-02-20] MEDS ORDERED: PANTOPRAZOLE SODIUM 40 MG VIAL IVP ONE (12:30)
--- NOTE | 2018-02-20 12:33 | RADRPT ---
EXAM DATE/TIME: 02/20/2018 11:40 [facility] COMPARISON: No previous studies available for comparison. INDICATIONS : Chest pain. MEDICAL HISTORY : Lupus. Diabetes mellitus type I. SURGICAL HISTORY : None. ENCOUNTER: Initial ACUITY: 1 day PAIN SCORE: 8/10 LOCATION: Bilateral chest FINDINGS: Poor inspiratory effort with mild airspace disease in the left lower lobe. Cardiac silhouette is mild ly enlarged and accentuated by the low lung volumes. Bony thorax is intact. CONCLUSION: 1. Poor inspiratory effort with mild airspace disease in the left lower lung zone which may reflect a telectasis although pneumonia cannot be excluded in the appropriate clinical setting. 2. Cardiomegaly. Justo Granados MD on February 20, 2018 at 12:29 Board Certified Radiologist. This report was verified electronically.
[2018-02-20 12:38] LABS: OVALOCYTES 1+ (NORMAL); TEARDROP RBCS 1+ (NORMAL)
[2018-02-20 12:39] LABS: ACANTHOCYTES OCC (NORMAL)
[2018-02-20] MEDS ORDERED: AZITHROMYCIN INJ 500 MG in SODIUM CHLOR 0.9% 250 ML INJ 250 ML IV ONE (12:45)
[2018-02-20] MEDS ORDERED: cefTRIAXone INJ 2,000 MG in SODIUM CHLORIDE 0.9% INJ 100 ML IV ONE (12:45)
--- NOTE | 2018-02-20 13:50 | RADRPT ---
EXAM DATE/TIME: 02/20/2018 13:29 This report includes an Addendum and supersedes previous reports for this exam. [facility] COMPARISON: CT PULMONARY ANGIOGRAM, January 15, 2018, 7:29. INDICATIONS : Chest pain shortness of breath IV CONTRAST: 71 cc Omnipaque 350 (iohexol) IV RADIATION DOSE: 15.39 CTDIvol (mGy) MEDICAL HISTORY : Lupus. Diabetes SURGICAL HISTORY : Tubal ligation. ENCOUNTER: Initial ACUITY: 1 day PAIN SCALE: 10/10 LOCATION: cranial TECHNIQUE: Volumetric scanning of the chest was performed using a pulmonary embolism protocol MIP images were re constructed. Using automated exposure control and adjustment of the mA and/or kV according to patien t size, radiation dose was kept as low as reasonably achievable to obtain optimal diagnostic quality images. DICOM format image data is available electronically for review and comparison. Follow-up recommendations for detected pulmonary nodules are based at a minimum on nodule size and pa tient risk factors according to Fleischner Society Guidelines. FINDINGS: Consolidative changes right lower lobe suspicious for inflammatory process. There is no pleural effu claire. Left lung clear. Extensive axillary adenopathy the largest node measuring 3.5 cm. Mode minimal mediastinal adenopathy that is nonspecific There is posterior central pulmonary emboli Portion of the liver is reidentified are free of focal defects. CONCLUSION: Consolidative changes right lower lobe Left axillary adenopathy that has progressed in the interval. Findings are suspicious for inflammatory process. Thomas Phillips MD FACR on February 20, 2018 at 13:45 Board Certified Radiologist. This report was verified electronically. ADDENDUM: No evidence of pulmonary embolism identified. Sage Otto MD on February 20, 2018 at 15:50 Board Certified Radiologist. This report was verified electronically.
--- NOTE | 2018-02-20 14:17 | HHI.HP ---
[facility] Service Family Medicine Primary Care Physician Unknown Admission Diagnosis Pneumonia, sepsis, hypoxia, guaiac positive stool Diagnoses: International Travel<30 Days: No Contact w/Intl Traveler<30days: No Known Affected Area: No History of Present Illness The patient is a 27 year old woman being evaluated in the ED due to chest pain and SOB of one day duration. 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 Mother states the patient had previously been taking ibuprofen twice daily for several weeks up to 600 mg twice daily for relief of arthralgias and myalgias. Mother states she stopped taking ibuprofen about two weeks ago after reporting she had a little blood in her stools. The patient reports bright red blood on the toilet paper x1 episode when wiping. She denies melena or grossly bloody stools. Patient denies abdominal pain. In regards to her chest pain, Mother states yesterday the patient reported only sitting up was helping her chest pain. Mother states the patient reported this chest pain was centrally located and stabbing in nature. Mother reports the patient was initially tested by her PCP about one year ago for SLE and was told she likely had SLE and was referred to rheumatology. The mother states they were initially told the diagnosis of SLE was in question and were considering a diagnosis of RA, however were not told of the diagnosis until this past Sunday. Patient endorses subjective fevers and night sweats over the past 1-2 days. Endorsing cough, productive of clear phlegm and sometimes yellow. No sick contacts at home. No recent travel. Lives at home with mother, 2 siblings, 5 children, and dog. Review of Systems Constitutional: COMPLAINS OF: Fever, Chills, Night Sweats, DENIES: Change in appetite Eyes: COMPLAINS OF: Blurred vision, DENIES: Diplopia Respiratory: COMPLAINS OF: Cough, Sputum production, Shortness of breath, DENIES: Wheezing Cardiovascular: COMPLAINS OF: Chest pain, DENIES: Palpitations Gastrointestinal: DENIES: Abdominal pain, Black stools, Bloody stools, Constipation, Diarrhea, Nausea, Vomiting Genitourinary: DENIES: Abnormal vaginal bleeding, Urgency, Hematuria, Dysuria, Vaginal discharge Integumentary: DENIES: Rash Neurologic: COMPLAINS OF: Headache (Endorses a chronic almost daily headache) Past Family Social History Past Medical History SLE HTN Past Surgical History CXN x2 BTL Allergies: Coded Allergies: No Known Allergies (Verified Allergy, Unknown, 01/15/18) Family History Mother: HTN Father: CVA, DM MGF: Sarcoidosis, CHF MGM: ESRD due to HTN on dialysis Social History Lives at home with mother, 2 siblings, 5 children, and dog Tobacco: Denies Etoh: Denies Illicit drug use: Denies Physical Exam Vital Signs Vital Signs Date Time Temp Pulse Resp B/P (MAP) Pulse Ox O2 Delivery O2 Flow Rate FiO2 02/20/18 12:45 135 24 129/73 (91) 95 Nasal Cannula 2.00 02/20/18 11:57 99 Nasal Cannula 2.00 02/20/18 11:38 93 Nasal Cannula 2.00 02/20/18 11:38 140 24 140/78 (98) 93 Nasal Cannula 2.00 02/20/18 11:38 93 Nasal Cannula 2.00 02/20/18 10:51 98.4 150 24 153/76 (101) 87 Physical Exam GENERAL: Appearing in mild distress secondary to chest pain, slight labored breathing tachypneic to about 20-22 breaths/min and still with shallow breathing NEURO: Alert. Normal speech. preform plate maker grossly intact. Motor grossly normal. SKIN: Warm and dry. No rashes or erythema. HEAD: Normocephalic. Atraumatic. EYES: PERRL. EOMI. No scleral icterus. No injection or drainage. ENT: No nasal drainage. Moist mucous membranes. No oral ulcers or lesions. NECK: Supple, trachea midline. No JVD or lymphadenopathy. CARDIOVASCULAR: Regular rate and rhythm without murmurs, rubs, or gallops. Peripheral pulses 2+. Capillary refill < 2 seconds. RESPIRATORY: Slight increased work of breathing. Poor inspiratory effort. Faint end expiratory wheezing. No rales or rhonchi. GASTROINTESTINAL: Abdomen soft, nontender, nondistended. No organomegaly or masses. No rebound tenderness. No guarding. HEME/LYMPH: No cervical LAD. Could not appreciate the axillary LAD. MUSCULOSKELETAL: No lower extremity edema. Normal range of motion. BACK: Nontender without obvious deformity. No CVA tenderness. Laboratory Laboratory Tests Test 02/20/18 11:30 02/20/18 13:00 White Blood Count 14.0 Red Blood Count 4.50 Hemoglobin 8.0 Hematocrit 26.3 Mean Corpuscular Volume 58.3 Mean Corpuscular Hemoglobin 17.8 Mean Corpuscular Hemoglobin Concent 30.5 Red Cell Distribution Width 23.3 Platelet Count 787 Mean Platelet Volume 8.3 Neutrophils (%) (Auto) 84.9 Lymphocytes (%) (Auto) 10.7 Monocytes (%) (Auto) 4.1 Eosinophils (%) (Auto) 0.0 Basophils (%) (Auto) 0.3 Neutrophils # (Auto) 11.9 Lymphocytes # (Auto) 1.5 Monocytes # (Auto) 0.6 Eosinophils # (Auto) 0.0 Basophils # (Auto) 0.0 CBC Comment AUTO DIFF Differential Comment AUTO DIFF CONFIRMED Platelet Estimate HIGH Platelet Morphology Comment ENLARGED Tear Drop Cells 1+ Ovalocytes 1+ Acanthocytes OCC Prothrombin Time 10.0 Prothromb Time International Ratio 1.0 Activated Partial Thromboplast Time 23.3 D-Dimer Quantitative (PE/DVT) 13.29 Blood Urea Nitrogen 17 Creatinine 0.91 Random Glucose 91 Total Protein 8.6 Albumin 1.6 Calcium Level 8.3 Magnesium Level 1.8 Alkaline Phosphatase 192 Aspartate Amino Transf (AST/SGOT) 32 Alanine Aminotransferase (ALT/SGPT) 10 Total Bilirubin 0.1 Sodium Level 139 Potassium Level 4.2 Chloride Level 108 Carbon Dioxide Level 25.9 Anion Gap 5 Estimat Glomerular Filtration Rate 91 Total Creatine Kinase 43 Troponin I LESS THAN 0.02 Lactic Acid Level 1.1 Date/Time Source Procedure Growth Status 02/20/18 13:03 Blood Peripheral Aerobic Blood Culture Pending Received 02/20/18 13:03 Blood Peripheral Anaerobic Blood Culture Pending Received Result Diagram: 02/20/18 1130 02/20/18 1130 Imaging Last [address] Angiography 02/20/18 1224 Signed Impressions: Service Date/Time: Tuesday, February 20, 2018 13:29 - CONCLUSION: Consolidative changes right lower lobe Left axillary adenopathy that has progressed in the interval. Findings are suspicious for inflammatory process. Thomas Phillips MD FACR Chest X-Ray 02/20/18 1109 Signed Impressions: Service Date/Time: Tuesday, February 20, 2018 11:40 - CONCLUSION: 1. Poor inspiratory effort with mild airspace disease in the left lower lung zone which may reflect atelectasis although pneumonia cannot be excluded in the appropriate clinical setting. 2. Cardiomegaly. MD Dina Bella VTE Risk Assessment Caprini VTE Risk Assessment: No/Low Risk (score <= 1) Caprini Risk Assessment Model Point Value = 1 Point Value = 2 Point Value = 3 Point Value = 5 Age 41-60 Minor surgery BMI > 25 kg/m2 Swollen legs Varicose veins or History of unexplained or recurrent spontaneous Oral contraceptives or hormone replacement Sepsis (< 1 month) Serious lung disease, including pneumonia (< 1 month) Abnormal pulmonary function Acute myocardial infarction Congestive heart failure (< 1 month) History of inflammatory bowel disease Medical patient at bed rest Age 61-74 Arthroscopic surgery Major open surgery (> 45 min) Laparoscopic surgery (> 45 min) Malignancy Confined to bed (> 72 hours) Immobilizing plaster cast Central venous access Age >= 75 History of VTE Family history of VTE Factor V Leiden Prothrombin [id number] Lupus anticoagulant Anticardiolipin antibodies Elevated serum homocysteine Heparin-induced thrombocytopenia Other congenital or acquired thrombophilia Stroke (< 1 month) Elective arthroplasty Hip, pelvis, or leg fracture Acute spinal cord injury (< 1 month) Prophylaxis Regimen Total Risk Factor Score Risk Level Prophylaxis Regimen 0-1 Low Early ambulation 2 Moderate Order ONE of the following: *Sequential Compression Device (SCD) *Heparin 5000 units SQ BID 3-4 Higher Order ONE of the following medications: *Heparin 5000 units SQ TID *Enoxaparin/Lovenox 40 mg SQ daily (WT < 150 kg, CrCl > 30 mL/min) *Enoxaparin/Lovenox 30 mg SQ daily (WT < 150 kg, CrCl > 10-29 mL/min) *Enoxaparin/Lovenox 30 mg SQ BID (WT < 150 kg, CrCl > 30 mL/min) AND/OR *Sequential Compression Device (SCD) 5 or more Highest Order ONE of the following medications: *Heparin 5000 units SQ TID (Preferred with Epidurals) *Enoxaparin/Lovenox 40 mg SQ daily (WT < 150 kg, CrCl > 30 mL/min) *Enoxaparin/Lovenox 30 mg SQ daily (WT < 150 kg, CrCl > 10-29 mL/min) *Enoxaparin/Lovenox 30 mg SQ BID (WT < 150 kg, CrCl > 30 mL/min) AND *Sequential Compression Device (SCD) Assessment and Plan Assessment and Plan 27 year old female with recent diagnosis of SLE being admitted for sepsis due to pneumonia. Code Status Full code Discussed Condition With Dr. Etienne Problem List: (1) Sepsis ICD Codes: A41.9 - Sepsis, unspecified organism Status: Acute Plan: Patient meeting sepsis criteria with pulse of 150, respiratory rate of 24 , WBC 14.0 Lactic acid 1.1 Source presumed due to pneumonia Further plan as below (2) Community acquired pneumonia ICD Codes: J18.9 - Pneumonia, unspecified organism Status: Acute Plan: Consolidative changes in the right lower lobe noted on CT pulmonary angiography s/p Rocephin 2gm IV x1 and azithromycin 500mg IV x1 in ED Continue Rocephin 2gm IV q24h (started 02/20) Continue azithromycin 250 mg po daily (started 02/20) NS at 150 cc/hr Check urinary pneumococcal and Legionella antigens Obtain sputum culture Blood culture pending Supportive therapy with supplemental oxygen as needed to maintain O2 sats > 92% Duonebs q4h while awake, q2h prn (3) Chest pain ICD Codes: R07.9 - Chest pain, unspecified Status: Acute Plan: CTPA as above, in findings per radiology report at this time it is noted patient having posterior central pulmonary emboli which was not transferred to the conclusion findings, radiology called regarding this and have reviewed the films and state the patient does not have pulmonary emboli, report to be amended EKG sinus tachycardia, no significant ST changes Consider on differential pericarditis given her SLE although she is young, costochondritis, pleuritis, or chest pain due to her pneumonia Trend troponin and EKG q6h x2 Morphine 4 mg IV q4h prn pain 6-10, morphine 2 mg IV q4h prn breakthrough pain (4) Stool guaiac positive ICD Codes: R19.5 - Other fecal abnormalities Status: Acute Plan: Stool is guaiac positive per ED report and documentation Hgb 8.0, stable from prior visits Patient endorsing bright red blood on toilet paper when wiping at home Does have history of moderate NSAID use including meloxicam Will trend H/H and consider gastroenterology consult if Hgb declines Protonix 40 mg po bid Expect Hgb to drop due to dilutional component as well Blood type O+ Will transfuse pRBCs if Hgb < 7.0 (5) Anemia ICD Codes: D64.9 - Anemia, unspecified Status: Chronic Plan: Plan as above Continue home ferrous sulfate (6) Thrombocytosis ICD Codes: D47.3 - Essential (hemorrhagic) thrombocythemia Status: Acute Plan: Platelet count elevated to 787,000 Consider on differential reactive thrombocytosis, due to SLE, or due to acute blood loss, chronic iron and b12 deficiency, or infection Continue to monitor (7) Hypertension ICD Codes: I10 - Essential (primary) hypertension Status: Chronic Plan: Monitor vitals q4h Hold home amlodipine at this time (8) SLE (systemic lupus erythematosus) ICD Codes: M32.9 - Systemic lupus erythematosus, unspecified Plan: Patient recently diagnosed with SLE this past Sunday Hold home prednisone and NSAIDs (9) Nutrition, metabolism, and development symptoms ICD Codes: R63.8 - Other symptoms and signs concerning food and fluid intake Status: Acute Plan: Fluids: NS at 150 cc/hr Electrolytes: WNL, continue to monitor Nutrition: Regular GI ppx: Protonix 40 mg po bid DVT ppx: b/l SCDs, holding chemical anticoagulation given her suspected GI bleed Anxiety: xanax 0.25 mg po tid as needed Physician Certification 2 Midnight Certification Type: Admission for Inpatient Services Order for Inpatient Services The services are ordered in accordance with Medicare regulations or non- Medicare payer requirements, as applicable. In the case of services not specified as inpatient-only, they are appropriately provided as inpatient services in accordance with the 2-midnight benchmark. Estimated LOS (days): 2 days is the estimated time the patient will need to remain in the hospital, assuming treatment plan goals are met and no additional complications. Post-Hospital Plan: Home Jamison Fritz MD R2 Feb 20, 2018 14:17
[2018-02-20] MEDS ORDERED: ONDANSETRON HCL 4 MG/2 ML VIAL IVP PRN (15:00)
[2018-02-20] MEDS: SODIUM CHLORIDE 0.9% FLUSH 10 ML FLUSH IV FLUSH SCH (15:00)
[2018-02-20] MEDS ORDERED: SODIUM CHLORIDE 0.9% FLUSH 10 ML FLUSH IV FLUSH PRN (15:00)
[2018-02-20] MEDS ORDERED: LACTULOSE SYRUP 20 GM/30 ML CUP PO PRN (15:00)
[2018-02-20] MEDS ORDERED: METOCLOPRAMIDE HCL 10 MG/2 ML VIAL IV PUSH ONE (15:00)
[2018-02-20] MEDS ORDERED: NALOXONE HCL 0.4 MG/ML AMP IV PUSH PRN (15:00)
[2018-02-20] MEDS ORDERED: MAGNESIUM HYDROXIDE SUSP 30 ML CUP PO PRN (15:00)
[2018-02-20] MEDS ORDERED: ACETAMINOPHEN 325 MG TAB PO PRN (15:00)
[2018-02-20] MEDS ORDERED: BISACODYL 10 MG SUPP RECTAL PRN (15:00)
[2018-02-20] MEDS ORDERED: RESP: ALBUTEROL 2.5 MG/IPRATROPIUM 0.5 MG NEB (PRN) NEB (15:00)
[2018-02-20] MEDS: RESP: ALBUTEROL 2.5 MG/IPRATROPIUM 0.5 MG NEB (SCH) NEB ×2 (15:47→22:46)
[2018-02-20] MEDS: MORPHINE SULFATE 2 MG/ML SYRINGE IV PUSH PRN ×2 (16:03→21:44)
[2018-02-20] MEDS: SODIUM CHLOR 0.9% 1000 ML INJ 1,000 ML IV SCH ×2 (16:04→22:40)
[2018-02-20] MEDS ORDERED: VANCOMYCIN INJ 1,150 MG in SODIUM CHLOR 0.9% 250 ML INJ 250 ML IV SCH (16:45)
[2018-02-20] MEDS ORDERED: Vancomycin Consult Pharmacy 1 EA OTHER SCH (16:45)
[2018-02-20 17:10] LABS: HEMATOCRIT 24.2 % (35.0-46.0); HEMOGLOBIN 7.3 GM/DL (11.6-15.3)
[2018-02-20] MEDS: PIPERACIL-TAZO 4.5 GM PREMIX 100 ML IV SCH ×2 (17:18→23:35)
[2018-02-20] MEDS ORDERED: VANCOMYCIN INJ 2,000 MG in SODIUM CHLORID 0.9% 500 ML INJ 500 ML IV ONE (18:00)
--- NOTE | 2018-02-20 20:28 | EKG ---
Date Performed: 02/20/2018 Time Performed: 11:28:41 PTAGE: 27 years EKG: SINUS TACHYCARDIA NONSPECIFIC ST & T-WAVE ABNORMALITY ABNORMAL RHYTHM ECG PREVIOUS TRACING : 01/15/2018 05.30 Compared to previous tracing, venticular rate is more rapi d DOCTOR: Mario Muñiz Interpretating Date/Time 02/20/2018 20:27:17
[2018-02-20] MEDS ORDERED: SODIUM CHLORID 0.9% 500 ML INJ 500 ML IV ONE (20:45)
[2018-02-20] MEDS: PANTOPRAZOLE SOD 40 MG DELAYED RELEASE TAB PO SCH (21:00)
[2018-02-20] MEDS ORDERED: FUROSEMIDE 20 MG/2 ML VIAL IV PUSH ONE (21:15)
[2018-02-20] MEDS ORDERED: SODIUM CHLOR 0.9% 250 ML INJ 250 ML IV ONE (21:15)
[2018-02-20] MEDS ORDERED: PANTOPRAZOLE SODIUM 40 MG VIAL IV PUSH SCH (22:00)
--- NOTE | 2018-02-20 22:14 | HHI.PR ---
Addendum to Inpatient Note Addendum Reason: Additional Documentation Additional Information Checked in on patients status at approximately 2100. Patient continues to complain of shortness of breath, mildly improved from before. Abdominal pain still present. Reported that she had been taking approximately 800-1000mg of ibuprofen daily for the past year and recently switched to diclofenac. Denies n/ v, hematemesis. No new complaints at this time. Pulse-Ox 96% on 4 L NC. Pulse: 130s BP 116/62. RR 30-40. GENERAL: Laying in bed, mild distress, shallow breathing SKIN: Warm and dry. HEAD: Normocephalic. EYES: No scleral icterus. No injection or drainage. NECK: Supple, trachea midline. No JVD or lymphadenopathy. CARDIOVASCULAR: Regular rate and rhythm without murmurs, gallops, or rubs. RESPIRATORY: Slight increased work of breathing. Poor inspiratory effort. Faint end expiratory wheezing. No rales or rhonchi. GASTROINTESTINAL: Abdomen soft, Tender to palpation in RUQ. MUSCULOSKELETAL: No cyanosis, or edema. BACK: Nontender without obvious deformity. No CVA tenderness. A/P: 27 year old female with history of pneumonia, continues to have increased respiratory status, pneumonia. Abdominal pain and blood per rectum. -F/U Abdominal CT -500 cc Bolus NS -Will transfuse 2 units RBC. Last Hemoglobin 7.3, however will likely drop 2/2 new bolus and potentially 2/2 bleed. -Methylprednisone 40 mg Q12 hours Parish Bobo MD R1 Feb 20, 2018 22:14
[2018-02-20] MEDS: CHLORHEXIDINE GLUCONATE 2 % 1 PACK (2 CLOTHS)(taper/protocol) TOPICAL SCH (22:30)
[2018-02-20] MEDS: MORPHINE SULFATE 4 MG/ML INJ IV PUSH PRN (22:43)
[2018-02-20] MEDS ORDERED: CHLORHEXIDINE GLUCONATE 2 % 1 PACK (2 CLOTHS)(extra cloths) TOPICAL PRN (22:45)
[2018-02-20] MEDS: DOCUSATE SODIUM 50 MG/SENNA 8.6 MG TAB PO SCH (23:32)
[2018-02-20] MEDS: methylPREDNISolone SOD SUCC 40 MG/1 ML VIAL IV PUSH SCH (23:36)
[2018-02-21] VITALS (15 sets, daily range): BP systolic 135–151; BP diastolic 74–95; PULSE 112–129; RESP 8–30; TEMP 98.2–99.5; O2SAT 93–100
[2018-02-21] MEDS: MORPHINE SULFATE 2 MG/ML SYRINGE IV PUSH PRN ×3 (03:09→22:05)
--- NOTE | 2018-02-21 03:39 | RADRPT ---
EXAM DATE/TIME: 02/21/2018 02:46 [place] COMPARISON: CT PULMONARY ANGIOGRAM, February 20, 2018, 13:29. INDICATIONS : Abdomen pain; blood in stool. ORAL CONTRAST: No oral contrast ingested. RADIATION DOSE: 7.32 CTDIvol (mGy) MEDICAL HISTORY : Diabetes mellitus type 2. Lupus. SURGICAL HISTORY : Tubal ligation. ENCOUNTER: Initial ACUITY: 1 day PAIN SCALE: 5/10 LOCATION: Bilateral abdomen. TECHNIQUE: Volumetric scanning of the abdomen and pelvis was performed. Using automated exposure control and ad justment of the mA and/or kV according to patient size, radiation dose was kept as low as reasonably achievable to obtain optimal diagnostic quality images. DICOM format image data is available electro nically for review and comparison. FINDINGS: LOWER LUNGS: Right basilar consolidation and small right pleural effusion. Tiny left pleural effusion LIVER: Homogeneous density without lesion. There is no dilation of the biliary tree. No calcified gallston es. Small amount of ascites. SPLEEN: Normal size without lesion. PANCREAS: Within normal limits. KIDNEYS: Normal in size and shape. There is no mass, stone, or hydronephrosis. ADRENAL GLANDS: Within normal limits. VASCULAR: There is no aortic aneurysm. BOWEL/MESENTERY: The stomach, small bowel, and colon demonstrate no acute abnormality. There is no free intraperitone al air or fluid. ABDOMINAL WALL: Within normal limits. RETROPERITONEUM: Borderline retroperitoneal lymphadenopathy. BLADDER: No wall thickening or mass. REPRODUCTIVE: Within normal limits. INGUINAL: There is no hernia. Small inguinal lymph nodes bilaterally. The [facility] inguinal region measuring 2.5 x 1.1 cm. MUSCULOSKELETAL: Within normal limits for patient age. CONCLUSION: 1. Right basilar consolidation and small right pleural effusion. 2. Small amount of abdominal ascites. 3. Right inguinal adenopathy. 4. Borderline retroperitoneal adenopathy. William Bernardo MD on February 21, 2018 at 3:33 Board Certified Radiologist. This report was verified electronically.
[2018-02-21] MEDS: PIPERACIL-TAZO 4.5 GM PREMIX 100 ML IV SCH ×4 (05:05→23:26)
[2018-02-21] MEDS: SODIUM CHLOR 0.9% 1000 ML INJ 1,000 ML IV SCH ×3 (05:07→22:04)
[2018-02-21] MEDS ORDERED: VANCOMYCIN 1,000 MG/NS 250 ML IV SCH ×2 (06:00)
[2018-02-21] MEDS: RESP: ALBUTEROL 2.5 MG/IPRATROPIUM 0.5 MG NEB (SCH) NEB ×4 (07:31→19:35)
[2018-02-21] MEDS: DOCUSATE SODIUM 50 MG/SENNA 8.6 MG TAB PO SCH ×2 (07:54→23:26)
[2018-02-21] MEDS: FERROUS SULFATE 325 MG (65 MG ELEMENTAL IRON) TAB PO SCH (07:54)
[2018-02-21] MEDS: PANTOPRAZOLE SOD 40 MG DELAYED RELEASE TAB PO SCH ×2 (07:54→23:26)
[2018-02-21] MEDS: SODIUM CHLORIDE 0.9% FLUSH 10 ML FLUSH IV FLUSH SCH ×2 (07:54→22:04)
[2018-02-21] MEDS: methylPREDNISolone SOD SUCC 40 MG/1 ML VIAL IV PUSH SCH (07:55)
[2018-02-21] MEDS ORDERED: amLODIPine BESYLATE 5 MG TAB PO SCH (09:00)
[2018-02-21] MEDS: MORPHINE SULFATE 4 MG/ML INJ IV PUSH PRN ×3 (09:05→23:23)
--- NOTE | 2018-02-21 09:06 | HHI.HP ---
[facility] Service Family Medicine Primary Care Physician Unknown Admission Diagnosis Pneumonia, sepsis, hypoxia, guaiac positive stool Diagnoses: (1) Sepsis Diagnosis: Principal (2) Community acquired pneumonia Diagnosis: Principal (3) Chest pain Diagnosis: Principal (4) Stool guaiac positive Diagnosis: Principal (5) Anemia Diagnosis: Principal (6) Thrombocytosis Diagnosis: Principal (7) Hypertension Diagnosis: Principal (8) SLE (systemic lupus erythematosus) Diagnosis: Principal (9) Nutrition, metabolism, and development symptoms Diagnosis: Principal International Travel<30 Days: No Contact w/Intl Traveler<30days: No Known Affected Area: No History of Present Illness Ms Chavis is a 27 year old woman evaluated in the ED due to chest pain and SOB of one day duration. 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 Mother states the patient had previously been taking ibuprofen twice daily for several weeks up to 600 mg twice daily for relief of arthralgias and myalgias. Mother states she stopped taking ibuprofen about two weeks ago after reporting she had a little blood in her stools. The patient reports bright red blood on the toilet paper x1 episode when wiping. She denies melena or grossly bloody stools. Patient denies abdominal pain. In regards to her chest pain, Mother states yesterday the patient reported only sitting up was helping her chest pain. Mother states the patient reported this chest pain was centrally located and stabbing in nature. Mother reports the patient was initially tested by her PCP about one year ago for SLE and was told she likely had SLE and was referred to rheumatology. The mother states they were initially told the diagnosis of SLE was in question and were considering a diagnosis of RA, however were not told of the diagnosis until this past Sunday. Patient endorses subjective fevers and night sweats over the past 1-2 days. Endorsing cough, productive of clear phlegm and sometimes yellow. No sick contacts at home. No recent travel. Lives at home with mother, 2 siblings, 5 children, and dog. Overall, she has been declining for the past year with multiple sequelae of lupus. she has had serious joint pain to the point where her mother has to help her stand up and she cannot walk. she has had chest pains and breathing problems for months. she was here a month or so ago for chest pain. her ESR is greater than 140 now and her CRP was very high. she has been having fevers at home on and off for some time as well. she has multiple diagnostic criteria for lupus including mouth ulcers, joint pains, skin problems, eye and neurologic problems as well as proteinuria seen by her Case Specialist. Review of Systems Constitutional: COMPLAINS OF: Diaphoretic episodes, Fatigue, Fever, Night Sweats Eyes: COMPLAINS OF: Blurred vision Ears, nose, mouth, throat: COMPLAINS OF: Oral lesions, Ear Pain Respiratory: COMPLAINS OF: Cough, Sputum production, Shortness of breath Cardiovascular: COMPLAINS OF: Chest pain Gastrointestinal: COMPLAINS OF: Abdominal pain Musculoskeletal: COMPLAINS OF: Joint pain, Muscle aches, Stiffness, Joint Swelling, Back pain, Neck pain Integumentary: COMPLAINS OF: Rash Neurologic: COMPLAINS OF: Abnormal gait, Headache Psychiatric: COMPLAINS OF: Confusion Past Family Social History Past Medical History SLE HTN Past Surgical History CXN x2 BTL Allergies: Coded Allergies: No Known Allergies (Verified Allergy, Unknown, 01/15/18) Family History Mother: HTN Father: CVA, DM MGF: Sarcoidosis, CHF MGM: ESRD due to HTN on dialysis Social History Lives at home with mother, 2 siblings, 5 children, and dog Tobacco: Denies Etoh: Denies Illicit drug use: Denies Physical Exam Vital Signs Vital Signs Date Time Temp Pulse Resp B/P (MAP) Pulse Ox O2 Delivery O2 Flow Rate FiO2 02/21/18 07:32 97 Nasal Cannula 4.00 02/21/18 04:00 124 02/21/18 04:00 99.5 129 14 143/87 (105) 93 02/21/18 02:00 128 02/21/18 00:00 127 02/21/18 00:00 98.8 128 30 135/74 (94) 95 02/20/18 22:50 94 Nasal Cannula 4.00 02/20/18 22:30 99.0 136 32 125/84 (98) 94 02/20/18 22:30 132 02/20/18 22:04 66 22 118/66 (83) 97 Nasal Cannula 4.00 02/20/18 19:28 137 24 103/59 (74) 95 Nasal Cannula 4.00 4/11/18 18:15 100.6 138 32 115/57 (76) 93 Nasal Cannula 4.00 02/20/18 17:30 102.0 02/20/18 17:16 145 30 120/60 (80) 93 Nasal Cannula 4.00 02/20/18 16:10 103.0 156 30 124/75 (91) 93 Nasal Cannula 3.00 02/20/18 14:45 140 26 136/73 (94) 96 Nasal Cannula 2.00 02/20/18 13:45 136 26 124/73 (90) 96 Nasal Cannula 2.00 02/20/18 12:45 135 24 129/73 (91) 95 Nasal Cannula 2.00 02/20/18 11:57 99 Nasal Cannula 2.00 02/20/18 11:38 93 Nasal Cannula 2.00 02/20/18 11:38 140 24 140/78 (98) 93 Nasal Cannula 2.00 02/20/18 11:38 93 Nasal Cannula 2.00 02/20/18 11:25 140 24 93 Nasal Cannula 2.00 02/20/18 10:51 98.4 150 24 153/76 (101) 87 Physical Exam GENERAL: Appearing in mild distress secondary to chest pain, slight labored breathing tachypneic to about 20-22 breaths/min and still with shallow breathing NEURO: Alert. Normal speech. cook dessert grossly intact. Motor grossly normal. SKIN: Warm and dry. No rashes or erythema. HEAD: Normocephalic. Atraumatic. EYES: PERRL. EOMI. No scleral icterus. No injection or drainage. ENT: No nasal drainage. Moist mucous membranes. few oral ulcers NECK: Supple, trachea midline. No JVD or lymphadenopathy. CARDIOVASCULAR: Regular rate and rhythm without murmurs, rubs, or gallops. Peripheral pulses 2+. Capillary refill < 2 seconds. RESPIRATORY: Slight increased work of breathing. Poor inspiratory effort. Faint end expiratory wheezing. No rales or rhonchi. prominent rhonchi throughout with moderate air movement GASTROINTESTINAL: Abdomen soft, nontender, nondistended. No organomegaly or masses. No rebound tenderness. No guarding. HEME/LYMPH: No cervical LAD. Could not appreciate the axillary LAD. MUSCULOSKELETAL: No lower extremity edema. Normal range of motion. bandage on small wound on left ankle BACK: Nontender without obvious deformity. No CVA tenderness. Laboratory Laboratory Tests Test 02/20/18 11:30 02/20/18 13:00 02/20/18 15:48 02/20/18 16:46 White Blood Count 14.0 Red Blood Count 4.50 Hemoglobin 8.0 7.3 Hematocrit 26.3 24.2 Mean Corpuscular Volume 58.3 Mean Corpuscular Hemoglobin 17.8 Mean Corpuscular Hemoglobin Concent 30.5 Red Cell Distribution Width 23.3 Platelet Count 787 Mean Platelet Volume 8.3 Neutrophils (%) (Auto) 84.9 Lymphocytes (%) (Auto) 10.7 Monocytes (%) (Auto) 4.1 Eosinophils (%) (Auto) 0.0 Basophils (%) (Auto) 0.3 Neutrophils # (Auto) 11.9 Lymphocytes # (Auto) 1.5 Monocytes # (Auto) 0.6 Eosinophils # (Auto) 0.0 Basophils # (Auto) 0.0 CBC Comment AUTO DIFF Differential Comment AUTO DIFF CONFIRMED Platelet Estimate HIGH Platelet Morphology Comment ENLARGED Tear Drop Cells 1+ Ovalocytes 1+ Acanthocytes OCC Prothrombin Time 10.0 Prothromb Time International Ratio 1.0 Activated Partial Thromboplast Time 23.3 D-Dimer Quantitative (PE/DVT) 13.29 Blood Urea Nitrogen 17 Creatinine 0.91 Random Glucose 91 Total Protein 8.6 Albumin 1.6 Calcium Level 8.3 Magnesium Level 1.8 Alkaline Phosphatase 192 Aspartate Amino Transf (AST/SGOT) 32 Alanine Aminotransferase (ALT/SGPT) 10 Total Bilirubin 0.1 Sodium Level 139 Potassium Level 4.2 Chloride Level 108 Carbon Dioxide Level 25.9 Anion Gap 5 Estimat Glomerular Filtration Rate 91 Total Creatine Kinase 43 Troponin I LESS THAN 0.02 0.02 Lactic Acid Level 1.1 Blood Gas Puncture Site IV Blood Gas Patient Temperature 98.6 Venous Blood pH 7.33 Venous Blood Partial Pressure CO2 45 Venous Blood Partial Pressure O2 30 Venous Blood HCO3 23 Venous Blood Oxygen Saturation 44 Venous Blood Oxygen Content 4.4 Venous Blood Base Excess -2.3 Oxygen Delivery Device NASAL CANNULA Blood Gas Liter Flow 2 Erythrocyte Sedimentation Rate GREATER THAN 140 C-Reactive Protein 8.31 Test 02/20/18 22:30 Nasal Screen MRSA (PCR) MRSA NOT DETECTED Date/Time Source Procedure Growth Status 02/20/18 13:03 Blood Peripheral Aerobic Blood Culture Pending Received 02/20/18 13:03 Blood Peripheral Anaerobic Blood Culture Pending Received 02/20/18 16:30 Urine Clean Catch Legionella Antigen - Final PRESUMPTIVE NEGATIVE FOR LEGIONELLA P... Complete 02/20/18 16:30 Urine Clean Catch Streptococcus pneumoniae Antigen (M - Final PRESUMPTIVE NEGATIVE FOR STREPTOCOCCU... Complete Result Diagram: 02/20/18 1646 02/20/18 1130 Imaging Last [address] Angiography 02/20/18 1224 Signed Impressions: Service Date/Time: Tuesday, February 20, 2018 13:29 - CONCLUSION: Consolidative changes right lower lobe Left axillary adenopathy that has progressed in the interval. Findings are suspicious for inflammatory process. Thomas Phillips MD FACR Chest X-Ray 02/20/18 1109 Signed Impressions: Service Date/Time: Tuesday, February 20, 2018 11:40 - CONCLUSION: 1. Poor inspiratory effort with mild airspace disease in the left lower lung zone which may reflect atelectasis although pneumonia cannot be excluded in the appropriate clinical setting. 2. Cardiomegaly. Justo Granados MD Caprini VTE Risk Assessment Caprini VTE Risk Assessment: No/Low Risk (score <= 1) Caprini Risk Assessment Model Point Value = 1 Point Value = 2 Point Value = 3 Point Value = 5 Age 41-60 Minor surgery BMI > 25 kg/m2 Swollen legs Varicose veins or History of unexplained or recurrent spontaneous Oral contraceptives or hormone replacement Sepsis (< 1 month) Serious lung disease, including pneumonia (< 1 month) Abnormal pulmonary function Acute myocardial infarction Congestive heart failure (< 1 month) History of inflammatory bowel disease Medical patient at bed rest Age 61-74 Arthroscopic surgery Major open surgery (> 45 min) Laparoscopic surgery (> 45 min) Malignancy Confined to bed (> 72 hours) Immobilizing plaster cast Central venous access Age >= 75 History of VTE Family history of VTE Factor V Leiden Prothrombin [id number] Lupus anticoagulant Anticardiolipin antibodies Elevated serum homocysteine Heparin-induced thrombocytopenia Other congenital or acquired thrombophilia Stroke (< 1 month) Elective arthroplasty Hip, pelvis, or leg fracture Acute spinal cord injury (< 1 month) Prophylaxis Regimen Total Risk Factor Score Risk Level Prophylaxis Regimen 0-1 Low Early ambulation 2 Moderate Order ONE of the following: *Sequential Compression Device (SCD) *Heparin 5000 units SQ BID 3-4 Higher Order ONE of the following medications: *Heparin 5000 units SQ TID *Enoxaparin/Lovenox 40 mg SQ daily (WT < 150 kg, CrCl > 30 mL/min) *Enoxaparin/Lovenox 30 mg SQ daily (WT < 150 kg, CrCl > 10-29 mL/min) *Enoxaparin/Lovenox 30 mg SQ BID (WT < 150 kg, CrCl > 30 mL/min) AND/OR *Sequential Compression Device (SCD) 5 or more Highest Order ONE of the following medications: *Heparin 5000 units SQ TID (Preferred with Epidurals) *Enoxaparin/Lovenox 40 mg SQ daily (WT < 150 kg, CrCl > 30 mL/min) *Enoxaparin/Lovenox 30 mg SQ daily (WT < 150 kg, CrCl > 10-29 mL/min) *Enoxaparin/Lovenox 30 mg SQ BID (WT < 150 kg, CrCl > 30 mL/min) AND *Sequential Compression Device (SCD) Assessment and Plan Assessment and Plan 27 year old female with recent diagnosis of SLE being admitted for sepsis due to pneumonia suspect this could be related to severe lupus. Problem List: (1) SLE (systemic lupus erythematosus) ICD Codes: M32.9 - Systemic lupus erythematosus, unspecified Plan: Patient recently diagnosed with SLE this past Sunday Hold home prednisone and NSAIDs. will give high dose steroids as lupus pneumonitis is high in the differential (2) Sepsis ICD Codes: A41.9 - Sepsis, unspecified organism Status: Acute Plan: Patient meeting sepsis criteria with pulse of 150, respiratory rate of 24 , WBC 14.0 Lactic acid 1.1 Source presumed due to pneumonia Further plan as below her fevers could be related to lupus as she has been having these at home (3) Community acquired pneumonia ICD Codes: J18.9 - Pneumonia, unspecified organism Status: Acute Plan: Consolidative changes in the right lower lobe noted on CT pulmonary angiography s/p Rocephin 2gm IV x1 and azithromycin 500mg IV x1 in ED Continue Rocephin 2gm IV q24h (started 02/20) Continue azithromycin 250 mg po daily (started 02/20) NS at 150 cc/hr Check urinary pneumococcal and Legionella antigens Obtain sputum culture Blood culture pending Supportive therapy with supplemental oxygen as needed to maintain O2 sats > 92% Duonebs q4h while awake, q2h prn (4) Chest pain ICD Codes: R07.9 - Chest pain, unspecified Status: Acute Plan: CTPA as above, in findings per radiology report at this time it is noted patient having posterior central pulmonary emboli which was not transferred to the conclusion findings, radiology called regarding this and have reviewed the films and state the patient does not have pulmonary emboli, report to be amended EKG sinus tachycardia, no significant ST changes Consider on differential pericarditis given her SLE although she is young, costochondritis, pleuritis, or chest pain due to her pneumonia Trend troponin and EKG q6h x2 Morphine 4 mg IV q4h prn pain 6-10, morphine 2 mg IV q4h prn breakthrough pain (5) Stool guaiac positive ICD Codes: R19.5 - Other fecal abnormalities Status: Acute Plan: Stool is guaiac positive per ED report and documentation Hgb 8.0, stable from prior visits Patient endorsing bright red blood on toilet paper when wiping at home Does have history of moderate NSAID use including meloxicam Will trend H/H and consider gastroenterology consult if Hgb declines Protonix 40 mg po bid Expect Hgb to drop due to dilutional component as well Blood type O+ Will transfuse pRBCs if Hgb < 7.0 (6) Anemia ICD Codes: D64.9 - Anemia, unspecified Status: Chronic Plan: Plan as above Continue home ferrous sulfate (7) Thrombocytosis ICD Codes: D47.3 - Essential (hemorrhagic) thrombocythemia Status: Acute Plan: Platelet count elevated to 787,000 Consider on differential reactive thrombocytosis, due to SLE, or due to acute blood loss, chronic iron and b12 deficiency, or infection Continue to monitor suspect this is reactive as she is so inflamed at this point (8) Hypertension ICD Codes: I10 - Essential (primary) hypertension Status: Chronic Plan: Monitor vitals q4h Hold home amlodipine at this time (9) Nutrition, metabolism, and development symptoms ICD Codes: R63.8 - Other symptoms and signs concerning food and fluid intake Status: Acute Plan: Fluids: NS at 150 cc/hr Electrolytes: WNL, continue to monitor Nutrition: Regular GI ppx: Protonix 40 mg po bid DVT ppx: b/l SCDs, holding chemical anticoagulation given her suspected GI bleed Anxiety: xanax 0.25 mg po tid as needed Physician Certification 2 Midnight Certification Type: Admission for Inpatient Services Order for Inpatient Services The services are ordered in accordance with Medicare regulations or non- Medicare payer requirements, as applicable. In the case of services not specified as inpatient-only, they are appropriately provided as inpatient services in accordance with the 2-midnight benchmark. Estimated LOS (days): 4 4 days is the estimated time the patient will need to remain in the hospital, assuming treatment plan goals are met and no additional complications. Post-Hospital Plan: Home Problem Qualifiers (1) Sepsis: Qualified Codes: A41.9 - Sepsis, unspecified organism (2) Community acquired pneumonia: Qualified Codes: J18.9 - Pneumonia, unspecified organism (3) Chest pain: Qualified Codes: R07.9 - Chest pain, unspecified (4) Anemia: Qualified Codes: D64.9 - Anemia, unspecified (5) Hypertension: Qualified Codes: I10 - Essential (primary) hypertension (6) SLE (systemic lupus erythematosus): Qualified Codes: M32.13 - Lung involvement in systemic lupus erythematosus Mili Hyde MD Feb 21, 2018 09:06
[2018-02-21] MEDS: methylPREDNISolone SOD SUCC 125 MG/2 ML VIAL IV PUSH SCH ×4 (09:30→23:26)
--- NOTE | 2018-02-21 11:54 | ECHRPT ---
Indication: Chest pain, unspecified CONCLUSIONS The left ventricular systolic function is normal with an estimated ejection fraction in the range of 55-60%. Wall thickness is normal. Mild thickening of the mitral valve leaflets. Trace mitral valve regurgitation. There is moderate tricuspid regurgitation. The estimated pulmonary arterial pressure is 43.9 mmHg. BP: / HR: Rhythm: Other MEASUREMENTS (Male / Female) Normal Values Technical Quality:Good 2D ECHO LV Diastolic Diameter PLAX 3.6 cm 4.2 - 5.9 / 3.9 - 5.3 cm LV Systolic Diameter PLAX 2.8 cm IVS Diastolic Thickness 1.0 cm 0.6 - 1.0 / 0.6 - 0.9 cm LVPW Diastolic Thickness 1.0 cm 0.6 - 1.0 / 0.6 - 0.9 cm LV Relative Wall Thickness 0.5 LVOT Diameter 2.0 cm M-MODE Aortic Root Diameter MM 2.6 cm LA Systolic Diameter MM 3.3 cm LA Ao Ratio MM 1.3 AV Cusp Separation MM 1.8 cm DOPPLER AV Peak Velocity 122.0 cm/s AV Peak Gradient 6.0 mmHg LVOT Peak Velocity 83.4 cm/s LVOT Peak Gradient 2.8 mmHg AV Area Cont Eq pk 2.1 cm LV E' Lateral Velocity 10.4 cm/s LV E' Septal Velocity 13.0 cm/s TR Peak Velocity 291.0 cm/s TR Peak Gradient 33.9 mmHg Right Atrial Pressure 10.0 mmHg Pulmonary Artery Systolic Pressu 43.9 mmHg Right Ventricular Systolic Press 43.9 mmHg PV Peak Velocity 113.0 cm/s PV Peak Gradient 5.1 mmHg FINDINGS LEFT VENTRICLE The left ventricular systolic function is normal with an estimated ejection fraction in the range of 55-60%. Wall thickness is normal. RIGHT VENTRICLE Normal right ventricular size and systolic function. LEFT ATRIUM The left atrial size is normal. RIGHT ATRIUM The right atrial size is normal. ATRIAL SEPTUM Normal atrial septal thickness without atrial level shunting by limited color doppler interrogation. AORTA The aortic root and proximal ascending aorta are normal in size on limited imaging. MITRAL VALVE Mild thickening of the mitral valve leaflets. Trace mitral valve regurgitation. AORTIC VALVE Trileaflet aortic valve. No aortic valve stenosis or regurgitation. TRICUSPID VALVE There is moderate tricuspid regurgitation. The estimated pulmonary arterial pressure is 43.9 mmHg. PULMONARY VALVE No pulmonary valve regurgitation or stenosis. VESSELS The inferior vena cava is normal in size. PERICARDIUM No pericardial effusion. Lucian Castro MD, FACC (Electronically Signed) Final Date:21 February 2018 11:53
[2018-02-21 11:55] LABS: AUTOMATED NEUTROPHIL # 25.9 TH/MM3 (1.8-7.7); BASOPHIL # 0.1 TH/MM3 (0-0.2); BASOPHIL % 0.2 % (0.0-2.0); LYMPH % 4.4 % (9.0-44.0); LYMPHOCYTE # 1.2 TH/MM3 (1.0-4.8); MEAN CELL VOLUME 65.5 FL (80.0-100.0); MEAN CORPUSCULAR HEMOGLOBIN 20.5 PG (27.0-34.0); MEAN CORPUSCULAR HGB CONC 31.3 % (32.0-36.0); MEAN PLATELET VOLUME 8.4 FL (7.0-11.0); MONO % 1.6 % (0.0-8.0); MONOCYTE # 0.4 TH/MM3 (0-0.9); NEUT % 93.8 % (16.0-70.0); PLATELET COUNT 504 TH/MM3 (150-450); RED BLOOD COUNT 4.89 MIL/MM3 (4.00-5.30); RED CELL DISTRIBUTION WIDTH 29.5 % (11.6-17.2); WHITE BLOOD COUNT 27.6 TH/MM3 (4.0-11.0)
--- NOTE | 2018-02-21 11:55 | PD.CONS ---
HPI History of Present Illness This is a 27 year old female with recent dx SLE who presented with SOB, chest pain. She was found to have PNA. GI consulted for anemia, daily NSAID use, blood in stool, heme pos stool. Pt admits frequent use ibuprofen in past and more recently daily use diclofenac. she has been having epigastric pain of late , she cannot say for how long. She has been attributing her pain to coughin. 4 days ago she noted small amount of bright red blood intermingled in her stool. SHe has no hx prior GIB and has not noticed any since Sunday. SHe admits dark stools and takes iron. She has never had an EGD or colonoscopy. (Alicia Lee) PFSH Past Medical History SLE anemia Past Surgical History c section x 2 tubal ligation (Alicia Lee) Coded Allergies: No Known Allergies (Verified Allergy, Unknown, 01/15/18) Family History HTN DM lupus Social History no toxic habits (Alicia Lee) Review of Systems Constitutional: COMPLAINS OF: Fatigue Endocrine: DENIES: Polydipsia Eyes: DENIES: Blurred vision Ears, nose, mouth, throat: DENIES: Hearing loss Respiratory: COMPLAINS OF: Cough Cardiovascular: DENIES: Palpitations Gastrointestinal: COMPLAINS OF: Abdominal pain, Black stools, Bloody stools, DENIES: Constipation, Nausea, Vomiting, Hematemesis Genitourinary: DENIES: Hematuria Musculoskeletal: COMPLAINS OF: Joint pain Integumentary: DENIES: Jaundice Hematologic/lymphatic: DENIES: Bruising Immunologic/allergic: DENIES: Eczema Neurologic: DENIES: Abnormal gait Psychiatric: DENIES: Confusion (Alicia Lee) GI Exam Vitals I&O Vital Signs Date Time Temp Pulse Resp B/P (MAP) Pulse Ox O2 Delivery O2 Flow Rate FiO2 02/21/18 10:00 122 02/21/18 09:40 16 02/21/18 08:00 121 02/21/18 08:00 98.3 121 19 139/84 (102) 97 02/21/18 07:32 97 Nasal Cannula 4.00 02/21/18 04:00 124 02/21/18 04:00 99.5 129 14 143/87 (105) 93 02/21/18 02:00 128 02/21/18 00:00 127 02/21/18 00:00 98.8 128 30 135/74 (94) 95 02/20/18 22:50 94 Nasal Cannula 4.00 02/20/18 22:30 99.0 136 32 125/84 (98) 94 02/20/18 22:30 132 02/20/18 22:04 66 22 118/66 (83) 97 Nasal Cannula 4.00 02/20/18 19:28 137 24 103/59 (74) 95 Nasal Cannula 4.00 02/20/18 18:15 100.6 138 32 115/57 (76) 93 Nasal Cannula 4.00 02/20/18 17:30 102.0 02/20/18 17:16 145 30 120/60 (80) 93 Nasal Cannula 4.00 02/20/18 16:10 103.0 156 30 124/75 (91) 93 Nasal Cannula 3.00 02/20/18 14:45 140 26 136/73 (94) 96 Nasal Cannula 2.00 02/20/18 13:45 136 26 124/73 (90) 96 Nasal Cannula 2.00 02/20/18 12:45 135 24 129/73 (91) 95 Nasal Cannula 2.00 02/20/18 11:57 99 Nasal Cannula 2.00 I/O 02/20/18 02/20/18 02/20/18 02/21/18 02/21/18 02/21/18 07:00 15:00 23:00 07:00 15:00 23:00 Intake Total 1100 ml 1370 ml 3515 ml Output Total 200 ml 300 ml 400 ml 300 ml Balance 900 ml 1070 ml 3115 ml -300 ml Intake Oral 480 ml IV Total 1100 ml 1370 ml 1565 ml Packed Cells 800 ml Blood Product IV Normal Saline Flush 670 ml Output Urine Total 200 ml 300 ml 400 ml 300 ml # Voids 1 1 3 # Bowel Movements [address] Angiography 02/20/18 1224 Signed Impressions: Service Date/Time: Tuesday, February 20, 2018 13:29 - CONCLUSION: Consolidative changes right lower lobe Left axillary adenopathy that has progressed in the interval. Findings are suspicious for inflammatory process. Thomas Phillips MD FACRADDENDUM: No evidence of pulmonary embolism identified. Sage Otto MD Chest X-Ray 02/20/18 1109 Signed Impressions: Service Date/Time: Tuesday, February 20, 2018 11:40 - CONCLUSION: 1. Poor inspiratory effort with mild airspace disease in the left lower lung zone which may reflect atelectasis although pneumonia cannot be excluded in the appropriate clinical setting. 2. Cardiomegaly. Justo Granados MD Abdomen/Pelvis CT 02/20/18 0000 Signed Impressions: Service Date/Time: February 02:46 - CONCLUSION: 1. Right basilar consolidation and small right pleural effusion. 2. Small amount of abdominal ascites. 3. Right inguinal adenopathy. 4. Borderline retroperitoneal adenopathy. William Bernardo MD Laboratory Test 02/20/18 13:00 02/20/18 15:48 02/20/18 16:46 02/20/18 22:30 Lactic Acid Level 1.1 mmol/L Blood Gas Puncture Site IV Blood Gas Patient Temperature 98.6 Venous Blood pH 7.33 Venous Blood Partial Pressure CO2 45 mmHg Venous Blood Partial Pressure O2 30 mmHg Venous Blood HCO3 23 mmol/L Venous Blood Oxygen Saturation 44 % Venous Blood Oxygen Content 4.4 Vol % Venous Blood Base Excess -2.3 mmol/L Oxygen Delivery Device NASAL CANNULA Blood Gas Liter Flow 2 L/M Hemoglobin 7.3 GM/DL Hematocrit 24.2 % Erythrocyte Sedimentation Rate GREATER THAN 140 mm/hr Troponin I 0.02 NG/ML C-Reactive Protein 8.31 MG/DL Nasal Screen MRSA (PCR) MRSA NOT DETECTED Test 02/21/18 08:34 Troponin I 0.04 NG/ML Date/Time Source Procedure Growth Status 02/20/18 13:03 Blood Peripheral Aerobic Blood Culture - Preliminary NO GROWTH IN 1 DAY Resulted 02/20/18 13:03 Blood Peripheral Anaerobic Blood Culture - Preliminary NO GROWTH IN 1 DAY Resulted 02/20/18 16:30 Urine Clean Catch Legionella Antigen - Final PRESUMPTIVE NEGATIVE FOR LEGIONELLA P... Complete 02/20/18 16:30 Urine Clean Catch Streptococcus pneumoniae Antigen (M - Final PRESUMPTIVE NEGATIVE FOR STREPTOCOCCU... Complete Physical Examination HEENT: PERRL; normocephalic; atraumatic; no jaundice. CHEST: SOB to conversation, tachypneic CARDIAC: tachycardic ABDOMEN: Soft, nondistended, TTP RUQ and epigastrium; no hepatosplenomegaly; bowel sounds are present in all four quadrants. EXTREMITIES: No clubbing, cyanosis, or edema. SKIN: Normal; no rash; no jaundice. CHEMICAL PROCESS ANALYST: No focal deficits; alert and oriented times three. (Alicia Lee) Assessment and Plan Plan ASSESSMENT - blood in stool - isolated episode small amt red blood in stool, no prior hx GIB. could be hemorrhoids heme pos stool - anemia - this is probably chronic. hgb 8 on admission. microcytic - epigastric pain - concern for ulcer. pt has been using frequent NSAIDs, ibuprofen and more recently diclofenac.. CT showing small ascites, inguinal adenopathy, mild retroperitoneal adenopathy - SLE, PNA PLAN - CARLOS - EGD and colonoscopy when more stable, inpt vs outpt - monitor labs - transfuse as needed - notify GI of active bleeding - further recs to follow pt seen by myself and Dr Morales and this note is on his behalf (Alicia Lee) Plan patient was seen and examined, most likely PUD because of NSAIDs, patient is not stable for endoscopy at this point because of pneumonia, patient also has rectal bleeding could be from hemorrhoids colonoscopy should be considered but not urgent, we will continue supportive care, once her pneumonia improves then endoscopy and colonoscopy can be done unless there is significant drop in her hemoglobin with active bleeding (Marco Morales MD) Alicia Lee Feb 21, 2018 11:55 Marco Morales MD Feb 21, 2018 18:13
[2018-02-21 12:48] LABS: ALBUMIN 1.4 GM/DL (3.4-5.0); ALKALINE PHOSPHATASE 190 U/L (45-117); ALT (GPT) 24 U/L (10-53); AST (GOT) 74 U/L (15-37); CHLORIDE 109 MEQ/L (98-107); CREATININE 0.98 MG/DL (0.50-1.00); GLOMERULAR FILTRATION RATE 84 ML/MIN (>89); GLUCOSE,RANDOM 168 MG/DL (74-106); SODIUM (NA) 141 MEQ/L (136-145); TOTAL BILIRUBIN ADULT 0.3 MG/DL (0.2-1.0); TOTAL PROTEIN 7.7 GM/DL (6.4-8.2)
[2018-02-21 12:50] LABS: BLOOD UREA NITROGEN 15 MG/DL (7-18)
[2018-02-21] MEDS ORDERED: cefTRIAXone INJ 2,000 MG in SODIUM CHLORIDE 0.9% INJ 100 ML IV SCH (13:00)
[2018-02-21 13:11] LABS: OVALOCYTES 1+ (NORMAL)
[2018-02-21] MEDS: AZITHROMYCIN 250 MG TAB PO SCH (13:15)
[2018-02-21 15:41] LABS: BILIRUBIN, URINE NEG (NEG); BLOOD, URINE SMALL (NEG); GLUCOSE,URINE NEG (NEG); KETONE, URINE NEG (NEG); NITRITE,URINE NEG (NEG); SQUAMOUS EPITHELIAL CELL URINE 2 /hpf (0-5); TRANSITIONAL EPI CELLS, URINE 1 /hpf; URINE COLOR YELLOW (YELLW/STRAW); URINE LEUKOCYTE ESTERASE NEG (NEG)
--- NOTE | 2018-02-21 17:56 | HHI.IDPN ---
Note Infectious Disease Note ID Full consult dictated. IMPRESSION: SLE pneumonitis vs PNA. RECOMMEND: Continue Azithromycin. Continue Piperacillin/ Tazobactam. Stop Vancomycin. Culture if sputum is produced. Agree with treatment with steroids. Vital Signs Date Time Temp Pulse Resp B/P (MAP) Pulse Ox O2 Delivery O2 Flow Rate FiO2 02/21/18 14:00 118 02/21/18 12:00 119 02/21/18 12:00 98.6 119 20 143/76 (98) 97 02/21/18 10:00 122 02/21/18 09:40 16 02/21/18 08:00 121 02/21/18 08:00 98.3 121 19 139/84 (102) 97 02/21/18 07:32 97 Nasal Cannula 4.00 02/21/18 04:00 124 02/21/18 04:00 99.5 129 14 143/87 (105) 93 02/21/18 02:00 128 02/21/18 00:00 127 02/21/18 00:00 98.8 128 30 135/74 (94) 95 02/20/18 22:50 94 Nasal Cannula 4.00 02/20/18 22:30 99.0 136 32 125/84 (98) 94 02/20/18 22:30 132 02/20/18 22:04 66 22 118/66 (83) 97 Nasal Cannula 4.00 02/20/18 19:28 137 24 103/59 (74) 95 Nasal Cannula 4.00 02/20/18 18:15 100.6 138 32 115/57 (76) 93 Nasal Cannula 4.00 Laboratory Tests Test 02/20/18 22:30 02/21/18 11:05 02/21/18 14:45 Nasal Screen MRSA (PCR) MRSA NOT DETECTED White Blood Count 27.6 TH/MM3 Red Blood Count 4.89 MIL/MM3 Hemoglobin 10.0 GM/DL Hematocrit 32.0 % Mean Corpuscular Volume 65.5 FL Mean Corpuscular Hemoglobin 20.5 PG Mean Corpuscular Hemoglobin Concent 31.3 % Red Cell Distribution Width 29.5 % Platelet Count 504 TH/MM3 Mean Platelet Volume 8.4 FL Neutrophils (%) (Auto) 93.8 % Lymphocytes (%) (Auto) 4.4 % Monocytes (%) (Auto) 1.6 % Eosinophils (%) (Auto) 0.0 % Basophils (%) (Auto) 0.2 % Neutrophils # (Auto) 25.9 TH/MM3 Lymphocytes # (Auto) 1.2 TH/MM3 Monocytes # (Auto) 0.4 TH/MM3 Eosinophils # (Auto) 0.0 TH/MM3 Basophils # (Auto) 0.1 TH/MM3 CBC Comment AUTO DIFF Differential Comment AUTO DIFF CONFIRMED Platelet Estimate HIGH Platelet Morphology Comment ENLARGED Ovalocytes 1+ Blood Urea Nitrogen 15 MG/DL Creatinine 0.98 MG/DL Random Glucose 168 MG/DL Total Protein 7.7 GM/DL Albumin 1.4 GM/DL Calcium Level 8.0 MG/DL Alkaline Phosphatase 190 U/L Aspartate Amino Transf (AST/SGOT) 74 U/L Alanine Aminotransferase (ALT/SGPT) 24 U/L Total Bilirubin 0.3 MG/DL Sodium Level 141 MEQ/L Potassium Level 4.0 MEQ/L Chloride Level 109 MEQ/L Carbon Dioxide Level 24.0 MEQ/L Anion Gap 8 MEQ/L Estimat Glomerular Filtration Rate 84 ML/MIN Troponin I 0.04 NG/ML B-Type Natriuretic Peptide 317 PG/ML Urine Color YELLOW Urine Turbidity HAZY Urine pH 6.0 Urine Specific [place] 1.026 Urine Protein 100 mg/dL Urine Glucose (UA) NEG mg/dL Urine Ketones NEG mg/dL Urine Occult Blood SMALL Urine Nitrite NEG Urine Bilirubin NEG Urine Urobilinogen LESS THAN 2.0 MG/DL Urine Leukocyte Esterase NEG Urine RBC 2 /hpf Urine WBC 2 /hpf Urine Squamous Epithelial Cells 2 /hpf Urine Transitional Epithelial Cells 1 /hpf Microscopic Urinalysis Comment CULT NOT INDICATED Bart Burrell MD Feb 21, 2018 17:56
[2018-02-21] MEDS ORDERED: VANCOMYCIN INJ 1,500 MG in SODIUM CHLORID 0.9% 500 ML INJ 500 ML IV SCH (18:00)
--- NOTE | 2018-02-21 21:30 | EKG ---
Date Performed: 02/20/2018 Time Performed: 16:22:28 PTAGE: 27 years EKG: SINUS TACHYCARDIA, POSSIBLE ATRIAL TACHYCARDIA NONSPECIFIC T-WAVE ABNORMALITY Since the pre vious tracing, no significant change noted ABNORMAL RHYTHM ECG NO PREVIOUS TRACING DOCTOR: Tyson Forman Interpretating Date/Time 02/21/2018 21:29:19
[2018-02-22] VITALS (19 sets, daily range): BP systolic 133–159; BP diastolic 79–104; PULSE 101–115; RESP 5–32; TEMP 98–98.7; O2SAT 95–99
[2018-02-22] MEDS: ALPRAZolam 0.25 MG TAB PO PRN ×2 (03:59→22:40)
[2018-02-22] MEDS: SODIUM CHLOR 0.9% 1000 ML INJ 1,000 ML IV SCH ×3 (03:59→11:26)
[2018-02-22] MEDS: MORPHINE SULFATE 4 MG/ML INJ IV PUSH PRN ×3 (04:00→22:38)
[2018-02-22] MEDS: CHLORHEXIDINE GLUCONATE 2 % 1 PACK (2 CLOTHS)(taper/protocol) TOPICAL SCH (05:03)
[2018-02-22] MEDS: methylPREDNISolone SOD SUCC 125 MG/2 ML VIAL IV PUSH SCH ×4 (05:04→22:41)
[2018-02-22] MEDS: PIPERACIL-TAZO 4.5 GM PREMIX 100 ML IV SCH ×4 (05:04→22:38)
[2018-02-22] MEDS ORDERED: PHARMACY ORDERED LAB ONE (05:45)
[2018-02-22] MEDS: MORPHINE SULFATE 2 MG/ML SYRINGE IV PUSH PRN ×2 (06:33→17:13)
[2018-02-22] MEDS: RESP: ALBUTEROL 2.5 MG/IPRATROPIUM 0.5 MG NEB (SCH) NEB ×4 (07:13→21:52)
[2018-02-22 07:28] LABS: AUTOMATED NEUTROPHIL # 20.2 TH/MM3 (1.8-7.7); BASOPHIL # 0.1 TH/MM3 (0-0.2); BASOPHIL % 0.3 % (0.0-2.0); HEMATOCRIT 34.6 % (35.0-46.0); HEMOGLOBIN 10.9 GM/DL (11.6-15.3); LYMPH % 4.8 % (9.0-44.0); LYMPHOCYTE # 1.1 TH/MM3 (1.0-4.8); MEAN CELL VOLUME 66.3 FL (80.0-100.0); MEAN CORPUSCULAR HEMOGLOBIN 20.9 PG (27.0-34.0); MEAN CORPUSCULAR HGB CONC 31.5 % (32.0-36.0); MEAN PLATELET VOLUME 8.4 FL (7.0-11.0); MONO % 2.7 % (0.0-8.0); MONOCYTE # 0.6 TH/MM3 (0-0.9); NEUT % 92.2 % (16.0-70.0); PLATELET COUNT 468 TH/MM3 (150-450); RED BLOOD COUNT 5.21 MIL/MM3 (4.00-5.30); RED CELL DISTRIBUTION WIDTH 29.7 % (11.6-17.2)
[2018-02-22 07:36] LABS: ALBUMIN 1.4 GM/DL (3.4-5.0); AST (GOT) 34 U/L (15-37); BICARBONATE 22.8 MEQ/L (21.0-32.0); BLOOD UREA NITROGEN 17 MG/DL (7-18); CALCIUM 8.3 MG/DL (8.5-10.1); CHLORIDE 108 MEQ/L (98-107); CREATININE 0.95 MG/DL (0.50-1.00); GLOMERULAR FILTRATION RATE 87 ML/MIN (>89); GLUCOSE,RANDOM 172 MG/DL (74-106); SODIUM (NA) 139 MEQ/L (136-145)
[2018-02-22 07:39] LABS: ALKALINE PHOSPHATASE 183 U/L (45-117); ALT (GPT) 17 U/L (10-53); TOTAL BILIRUBIN ADULT 0.3 MG/DL (0.2-1.0); TOTAL PROTEIN 8.3 GM/DL (6.4-8.2)
--- NOTE | 2018-02-22 08:29 | MB ---
cc: Bart Burrell MD, Franklyn F MD DATE: 02/21/2018 REQUESTING PHYSICIAN: Dr. Fritz REASON FOR CONSULTATION: A 27-year-old female with recent diagnosis of SLE admitted with sepsis due to pneumonia. Questionable acute lupus pneumonitis. Appreciate recommendations and antibiotics. HISTORY OF PRESENT ILLNESS: This is a 27-year-old black female who was recently diagnosed with lupus. The patient presented to the emergency department on 02/20 with respiratory symptoms. She stated that she started developing chest pain and shortness of breath on the day before admission. She was prescribed prednisone for the lupus. She was also noted to have some bright red blood per rectum. The patient tells me that she has been very weak. She notes that she has had to get support assistance of her children when she walks because she has been extremely weak and she also gets some dizziness when she sits up. She also notes that she has had sweats. Her white blood cell count on admission was 14.0 and heart rate was 135 and respiratory rate was 24. Chest x-ray was performed and it showed mild airspace disease in the left lower lung zone. CT angiogram of the chest reveals consolidative changes in the right lower lobe and also left axillary adenopathy, which have progressed. No evidence of pulmonary embolism. The patient is currently on oxygen via nasal cannula. She was given methylprednisolone yesterday evening and she is continuing to receive high dose methylprednisolone currently. She was also started on IV antibiotics. The patient tells me that she has had a cough and sometimes brings up light yellow sputum. However, she states that she has not had significant coughing. CT of the abdomen and pelvis was also performed and it shows a small amount of abdominal ascites, right inguinal adenopathy and borderline retroperitoneal adenopathy. There is also right basilar consolidation noted. Her temperature was 103 on the evening of 02/20. The temperature is now down to normal. Currently, the patient has chest pain approximately 8/10 scale. PAST MEDICAL HISTORY: Recently diagnosed SLE, hypertension and bilateral tubal ligation. ALLERGIES: NO KNOWN DRUG ALLERGIES MEDICATIONS: 1. Vancomycin. 2. Azithromycin. 3. Piperacillin/tazobactam 4. DuoNeb. 5. Morphine sulfate. SOCIAL HISTORY: No tobacco, alcohol or illicit drugs. FAMILY HISTORY: The patient's mother's great aunt had lupus. She also notes having a distant cousin with lupus. REVIEW OF SYSTEMS: Pertinent as mentioned above in history of present illness. Otherwise, negative. PHYSICAL EXAMINATION: GENERAL: This is a well-developed female who is awake and alert, but appears chronically ill. VITAL SIGNS: Temperature 96 degrees, BP 144/88, respirations 20, heart rate 109. HEENT: Head is atraumatic. Extraocular muscles grossly intact. Pupils reactive to light. No icterus. Oropharynx slightly dry mucosa. NECK: Supple without adenopathy. LUNGS: Rhonchi at the bases of both lungs. HEART: Regular S1 and S2. No murmurs, rubs or gallops. ABDOMEN: Bowel sounds present. Soft, no tenderness appreciated. No palpable mass. RECTAL: Not performed. EXTREMITIES: No clubbing, cyanosis or edema. SKIN: No diffuse rash. NEUROLOGIC: Generalized weakness. Otherwise, nonfocal. PSYCHIATRIC: The patient is calm and cooperative. LABORATORY DATA: WBC 27.6, platelets 504, 92% neutrophils. Hemoglobin is 10.0. Creatinine 0.98, BUN 50, sodium 141. Estimated GFR 84. C-reactive protein 8.36. Sedimentation rate 140. IMPRESSION: Fever and leukocytosis in a patient with abnormal chest x-ray and CT angiogram both of which show infiltrates with a consolidative infiltrate in the right lower lobe on the CT angiogram and airspace disease in the left lower lung zone on the chest x-ray. The patient appears to have systemic lupus erythematosus associated pneumonitis which very likely is the cause of her fever as well as lung infiltrates. Her white count increased significantly over 24 hours and it could be related to treatment with steroids. However, in light of the persistent fever, I would continue to cover her with antibiotics. RECOMMENDATIONS: 1. Continue ceftriaxone and azithromycin for pulmonary coverage. 2. Discontinue vancomycin. 3. Continue to treat with steroids. 4. If she produces any significant sputum, obtain sputum culture. Thank you for this consultation. I will monitor the patient's progress along with you. MD GENESIS Valencia/ , 05:52 PM , 07:26 PM [facility]
--- NOTE | 2018-02-22 08:40 | HHI.FPPN ---
Subjective Remarks No acute events overnight. Afebrile, vital signs reviewed. Renetta states overall she is feeling much better. She stills reports right lateral chest wall pain, still pleuritic but improving. She states her central chest pain she had on admission has resolved. She denies abdominal pain. Denies fevers or chills. Has been ambulating with assistance within her room. 1500 cc UOP noted. (Jamison Fritz MD R2) Objective Vitals Vital Signs Date Time Temp Pulse Resp B/P (MAP) Pulse Ox O2 Delivery O2 Flow Rate FiO2 02/22/18 07:13 97 Nasal Cannula 3.00 02/22/18 06:00 109 11 153/92 (112) 97 02/22/18 06:00 109 02/22/18 05:00 110 32 145/95 (112) 98 02/22/18 04:00 106 02/22/18 04:00 98.4 106 12 158/98 (118) 97 02/22/18 03:00 101 13 149/90 (109) 99 02/22/18 02:00 107 12 139/88 (105) 99 02/22/18 02:00 107 02/22/18 01:00 108 5 136/93 (107) 97 02/22/18 00:00 108 02/22/18 00:00 98.7 108 22 141/88 (105) 99 02/21/18 23:00 112 30 147/89 (108) 98 02/21/18 22:00 115 02/21/18 22:00 115 10 151/95 (113) 96 02/21/18 21:00 115 8 145/83 (103) 97 02/21/18 20:00 119 02/21/18 20:00 98.2 119 19 140/92 (108) 96 02/21/18 19:35 97 Nasal Cannula 3.00 02/21/18 18:00 113 02/21/18 16:00 118 02/21/18 16:00 98.4 118 21 140/82 (101) 100 02/21/18 14:00 118 02/21/18 12:00 119 02/21/18 12:00 98.6 119 20 143/76 (98) 97 02/21/18 10:00 122 02/21/18 09:40 16 I/O 402/21/18 02/21/18 02/22/18 02/22/18 02/22/18 07:00 15:00 23:00 07:00 15:00 23:00 Intake Total 3515 ml 1000 ml 1435 ml 2860 ml Output Total 400 ml 300 ml 600 ml 600 ml Balance 3115 ml 700 ml 835 ml 2260 ml Intake Oral 480 ml 720 ml 960 ml IV Total 1565 ml 1000 ml 715 ml 1900 ml Packed Cells 800 ml Blood Product IV Normal Saline Flush 670 ml Output Urine Total 400 ml 300 ml 600 ml 600 ml # Voids 3 # Bowel Movements 0 0 (Jamison Fritz MD R2) Result Diagram: 02/22/1842302/22/18423 Objective Remarks GENERAL: NAD, lying in bed NEURO: Alert. Normal speech. cooking chef grossly intact. Motor grossly normal. SKIN: Warm and dry. No rashes or erythema. HEAD: Normocephalic. Atraumatic. EYES: EOMI. No scleral icterus. No injection or drainage. ENT: No nasal drainage. Moist mucous membranes. Few oral ulcers noted. NECK: Supple, trachea midline. No JVD or lymphadenopathy. CARDIOVASCULAR: Slightly tachycardic rate, regular rhythm, without murmurs, rubs , or gallops. Peripheral pulses 2+. Capillary refill < 2 seconds. RESPIRATORY: Improved inspiratory effort from admission. Faint end expiratory wheezing. Coarse breath sounds throughout. Equal breath sounds bilaterally. GASTROINTESTINAL: Abdomen soft, nontender, nondistended. No organomegaly or masses. No rebound tenderness. No guarding. MUSCULOSKELETAL: No lower extremity edema. Normal range of motion. BACK: Nontender without obvious deformity. (Jamison Fritz MD R2) A/P Assessment and Plan 27 year old female with recent diagnosis of SLE admitted for sepsis due to pneumonia, suspect this could be related to severe lupus. Discharge Planning Anticipate discharge home once clinically stable, patient still requiring IV antibiotics and steroids. Infectious disease and gastroenterology still following. (Jamison Fritz MD R2) Attending Attestation Patient seen and examined. Case reviewed and discussed with the resident team. Agree with plan of care as discussed with me and documented in the resident note. her chest pain and headaches are gone, her joint pain and mobility are better than they have been in months and her breathing is great (Mili Hyde MD) Problem List: (1) SLE (systemic lupus erythematosus) ICD Codes: M32.9 - Systemic lupus erythematosus, unspecified Plan: Patient recently diagnosed with SLE this past Sunday 02/18 Hold home prednisone and NSAIDs. will give high dose steroids as lupus pneumonitis is high in the differential Continue Solumedrol 250 mg IV q6h Discussed case with the patients outpatient construction field engineer who agrees with current treatment plan, has faxed over prior lab workup (2) Sepsis ICD Codes: A41.9 - Sepsis, unspecified organism Status: Acute Plan: Patient meeting sepsis criteria with pulse of 150, respiratory rate of 24 , WBC 14.0 on admission Lactic acid 1.1 Source presumed due to pneumonia Further plan as below her fevers could be related to lupus as she has been having these at home (3) Community acquired pneumonia ICD Codes: J18.9 - Pneumonia, unspecified organism Status: Acute Plan: Consolidative changes in the right lower lobe noted on CT pulmonary angiography s/p Rocephin 2gm IV x1 and azithromycin 500mg IV x1 in ED Discontinued Rocephin 2gm IV q24h Continue azithromycin 250 mg po daily NS at 150 cc/hr Urinary pneumococcal and Legionella antigens presumptive negatives Obtain sputum culture once sputum is expectorated Blood culture no growth after one day Supportive therapy with supplemental oxygen as needed to maintain O2 sats > 92% Duonebs q4h while awake, q2h prn Infectious disease consulted, appreciate recommendations Continue Zosyn 4.5 gm IV q6h (started 02/20) Continue Azithromycin (started 02/20) Discontinued Vancomycin (4) Chest pain ICD Codes: R07.9 - Chest pain, unspecified Status: Acute Plan: CTPA as above, in findings per radiology report at this time it is noted patient having posterior central pulmonary emboli which was not transferred to the conclusion findings, radiology called regarding this and have reviewed the films and state the patient does not have pulmonary emboli, report to be amended EKG sinus tachycardia, no significant ST changes Consider on differential pericarditis given her SLE although she is young, costochondritis, pleuritis, or chest pain due to her pneumonia Chest pain improving, continue to monitor Morphine 4 mg IV q4h prn pain 6-10, morphine 2 mg IV q4h prn breakthrough pain (5) Stool guaiac positive ICD Codes: R19.5 - Other fecal abnormalities Status: Acute Plan: Stool is guaiac positive per ED report and documentation Hgb 8.0, stable from prior visits, stable this AM Patient endorsing bright red blood on toilet paper when wiping at home Does have history of moderate NSAID, motrin and diclofenac Gastroenterology consulted Continue protonix 40 mg po bid Blood type O+ Will transfuse pRBCs if Hgb < 7.0 s/p 2 units pRBCs transfused on 02/20 GI planning for EGD and colonoscopy when more stable, inpt vs outpt (6) Anemia ICD Codes: D64.9 - Anemia, unspecified Status: Chronic Plan: Plan as above Continue home ferrous sulfate (7) Thrombocytosis ICD Codes: D47.3 - Essential (hemorrhagic) thrombocythemia Status: Resolved Plan: Platelet count elevated to 787,000 on admission, downtrending Consider on differential reactive thrombocytosis, due to SLE, or due to acute blood loss, chronic iron and b12 deficiency, or infection Continue to monitor suspect this is reactive as she is so inflamed at this point (8) Hypertension ICD Codes: I10 - Essential (primary) hypertension Status: Chronic Plan: Monitor vitals q4h Hold home amlodipine at this time (9) Nutrition, metabolism, and development symptoms ICD Codes: R63.8 - Other symptoms and signs concerning food and fluid intake Status: Acute Plan: Fluids: NS at 150 cc/hr Electrolytes: WNL, continue to monitor Nutrition: Regular GI ppx: Protonix 40 mg po bid DVT ppx: b/l SCDs, holding chemical anticoagulation given her suspected GI bleed Anxiety: xanax 0.25 mg po tid as needed (Jamison Fritz MD R2) Problem Qualifiers (1) SLE (systemic lupus erythematosus): Qualified Codes: M32.13 - Lung involvement in systemic lupus erythematosus (2) Sepsis: Qualified Codes: A41.9 - Sepsis, unspecified organism (3) Community acquired pneumonia: Qualified Codes: J18.9 - Pneumonia, unspecified organism (4) Chest pain: Qualified Codes: R07.9 - Chest pain, unspecified (5) Anemia: Qualified Codes: D64.9 - Anemia, unspecified (6) Hypertension: Qualified Codes: I10 - Essential (primary) hypertension Jamison Fritz MD R2 Feb 22, 2018 08:40 Mili Hyde MD Feb 25, 2018 11:41
[2018-02-22] MEDS: SODIUM CHLORIDE 0.9% FLUSH 10 ML FLUSH IV FLUSH SCH ×2 (09:06→22:38)
[2018-02-22] MEDS: PANTOPRAZOLE SOD 40 MG DELAYED RELEASE TAB PO SCH ×2 (09:06→22:40)
[2018-02-22] MEDS: DOCUSATE SODIUM 50 MG/SENNA 8.6 MG TAB PO SCH ×2 (09:06→22:39)
[2018-02-22] MEDS: FERROUS SULFATE 325 MG (65 MG ELEMENTAL IRON) TAB PO SCH (09:06)
[2018-02-22 09:16] LABS: ACANTHOCYTES OCC (NORMAL); OVALOCYTES 1+ (NORMAL); TEARDROP RBCS 1+ (NORMAL)
--- NOTE | 2018-02-22 12:51 | HHI.IDPN ---
Note Infectious Disease Note Patient states he feels better. She reports that she still has some shortness of breath. Gets pain on the right side of her body. No chest pain with deep inspiration. Afebrile. White blood cell count remains elevated. Patient recently diagnosed with systemic lupus. The patient presented to the emergency department on 02/20 with respiratory symptoms. She stated that she started developing chest pain and shortness of breath on the day before admission and was prescribed prednisone for the lupus. She was also noted to have some bright red blood per rectum. The patient tells me that she has been very weak. She notes that she has had to get the support of her children when she walks because she has been extremely weak and she also gets some dizziness when she sits up. She also notes that she has had sweats. She has had a cough and sometimes brings up light yellow sputum. However, she states that she has not had significant coughing. PAST MEDICAL HISTORY: Recently diagnosed SLE, hypertension and bilateral tubal ligation. ALLERGIES: NO KNOWN DRUG ALLERGIES MEDICATIONS: Current Medications Medications (Trade) Dose Ordered Sig/Mary Route PRN Reason Start Time Stop Time Status Last Admin Dose Admin Sodium Chloride 1,000 ml @ 150 mls/hr Q6H40M IV 02/20/18 16:00 02/22/18 11:26 Sodium Chloride (NS Flush) 2 ml UNSCH PRN IV FLUSH FLUSH AFTER USING IV ACCESS 02/20/18 15:00 Sodium Chloride (NS Flush) 2 ml BID IV FLUSH 02/20/18 15:00 02/22/18 09:06 Acetaminophen (Tylenol) 650 mg Q4H PRN PO TEMP > 100.4 02/20/18 15:00 02/20/18 16:11 Ondansetron HCl (Zofran Inj) 4 mg Q6H PRN IVP NAUSEA OR VOMITING 02/20/18 15:00 Naloxone HCl (Narcan Inj) 0.4 mg UNSCH PRN IV PUSH SEE LABEL COMMENTS 02/20/18 15:00 Senna/Docusate Sodium (Ursula-Colace) 1 tab BID PO 02/20/18 21:00 02/22/18 09:06 Magnesium Hydroxide (Milk Of Magnesia Liq) 30 ml Q12H PRN PO Mild constipation 02/20/18 15:00 Bisacodyl (Dulcolax Supp) 10 mg DAILY PRN RECTAL SEVERE CONSITIPATION 02/20/18 15:00 Lactulose (Lactulose Liq) 30 ml DAILY PRN PO SEVERE CONSITIPATION 02/20/18 15:00 Azithromycin (Zithromax) 250 mg Q24H PO 02/21/18 14:00 02/21/18 13:15 Albuterol/ Ipratropium (Duoneb Neb) 1 ampule Q4HR WHILE AWAKE NEB NEB 02/20/18 16:00 02/22/18 10:53 Albuterol/ Ipratropium (Duoneb Neb) 1 ampule Q2HR NEB PRN NEB SOB/WHEEZING 02/20/18 15:00 Pantoprazole Sodium (Protonix) 40 mg Q12HR PO 02/20/18 21:00 02/22/18 09:06 Ferrous Sulfate (Ferrous Sulfate) 325 mg DAILY PO 02/21/18 09:00 02/22/18 09:06 Morphine Sulfate (Morphine Inj) 4 mg Q4H PRN IV PUSH PAIN SCALE 6 TO 10 02/20/18 15:15 02/22/18 12:10 Morphine Sulfate (Morphine Inj) 2 mg Q4H PRN IV PUSH BREAKTHROUGH PAIN 02/20/18 17:15 02/22/18 06:33 Alprazolam (Xanax) 0.25 mg Q8H PRN PO MODERATE TO SEVERE ANXIETY 02/20/18 15:15 02/22/18 03:59 Piperacillin Sod/ Tazobactam Sod 100 ml @ 200 mls/hr Q6H IV 02/20/18 17:00 02/22/18 11:25 Miscellaneous Information Patient in critical care unit? Ass... [id number] .XX 02/20/18 22:45 02/20/18 22:15 Chlorhexidine Gluconate (Chlorhexidine 2% Cloth) 3 pack DAILY@04 TOPICAL 02/21/18 04:00 02/25/18 04:01 02/22/18 05:03 Chlorhexidine Gluconate (Chlorhexidine 2% Cloth) 3 pack UNSCH PRN TOPICAL HYGIENIC CARE 02/20/18 22:45 02/25/18 22:33 Methylprednisolone Sodium Succinate (SoluMEDROL INJ) 250 mg Q6HR IV PUSH 02/21/18 09:30 02/22/18 11:26 Objective: Vital Signs Date Time Temp Pulse Resp B/P (MAP) Pulse Ox O2 Delivery O2 Flow Rate FiO2 02/21/18 14:00 118 02/21/18 12:00 119 02/21/18 12:00 98.6 119 20 143/76 (98) 97 02/21/18 10:00 122 02/21/18 09:40 16 02/21/18 08:00 121 02/21/18 08:00 98.3 121 19 139/84 (102) 97 02/21/18 07:32 97 Nasal Cannula 4.00 02/21/18 04:00 124 02/21/18 04:00 99.5 129 14 143/87 (105) 93 02/21/18 02:00 128 02/21/18 00:00 127 02/21/18 00:00 98.8 128 30 135/74 (94) 95 02/20/18 22:50 94 Nasal Cannula 4.00 02/20/18 22:30 99.0 136 32 125/84 (98) 94 02/20/18 22:30 132 02/20/18 22:04 66 22 118/66 (83) 97 Nasal Cannula 4.00 02/20/18 19:28 137 24 103/59 (74) 95 Nasal Cannula 4.00 02/20/18 18:15 100.6 138 32 115/57 (76) 93 Nasal Cannula 4.00 Laboratory Tests Test 02/20/18 22:30 02/21/18 11:05 02/21/18 14:45 Nasal Screen MRSA (PCR) MRSA NOT DETECTED White Blood Count 27.6 TH/MM3 Red Blood Count 4.89 MIL/MM3 Hemoglobin 10.0 GM/DL Hematocrit 32.0 % Mean Corpuscular Volume 65.5 FL Mean Corpuscular Hemoglobin 20.5 PG Mean Corpuscular Hemoglobin Concent 31.3 % Red Cell Distribution Width 29.5 % Platelet Count 504 TH/MM3 Mean Platelet Volume 8.4 FL Neutrophils (%) (Auto) 93.8 % Lymphocytes (%) (Auto) 4.4 % Monocytes (%) (Auto) 1.6 % Eosinophils (%) (Auto) 0.0 % Basophils (%) (Auto) 0.2 % Neutrophils # (Auto) 25.9 TH/MM3 Lymphocytes # (Auto) 1.2 TH/MM3 Monocytes # (Auto) 0.4 TH/MM3 Eosinophils # (Auto) 0.0 TH/MM3 Basophils # (Auto) 0.1 TH/MM3 CBC Comment AUTO DIFF Differential Comment AUTO DIFF CONFIRMED Platelet Estimate HIGH Platelet Morphology Comment ENLARGED Ovalocytes 1+ Blood Urea Nitrogen 15 MG/DL Creatinine 0.98 MG/DL Random Glucose 168 MG/DL Total Protein 7.7 GM/DL Albumin 1.4 GM/DL Calcium Level 8.0 MG/DL Alkaline Phosphatase 190 U/L Aspartate Amino Transf (AST/SGOT) 74 U/L Alanine Aminotransferase (ALT/SGPT) 24 U/L Total Bilirubin 0.3 MG/DL Sodium Level 141 MEQ/L Potassium Level 4.0 MEQ/L Chloride Level 109 MEQ/L Carbon Dioxide Level 24.0 MEQ/L Anion Gap 8 MEQ/L Estimat Glomerular Filtration Rate 84 ML/MIN Troponin I 0.04 NG/ML B-Type Natriuretic Peptide 317 PG/ML Urine Color YELLOW Urine Turbidity HAZY Urine pH 6.0 Urine Specific [place] 1.026 Urine Protein 100 mg/dL Urine Glucose (UA) NEG mg/dL Urine Ketones NEG mg/dL Urine Occult Blood SMALL Urine Nitrite NEG Urine Bilirubin NEG Urine Urobilinogen LESS THAN 2.0 MG/DL Urine Leukocyte Esterase NEG Urine RBC 2 /hpf Urine WBC 2 /hpf Urine Squamous Epithelial Cells 2 /hpf Urine Transitional Epithelial Cells 1 /hpf Microscopic Urinalysis Comment CULT NOT INDICATED PHYSICAL EXAMINATION: GENERAL: No acute distress. Awake and alert. HEENT: Head is atraumatic. Extraocular muscles grossly intact. Pupils reactive to light. No icterus. Oropharynx slightly dry mucosa. NECK: Supple without adenopathy. LUNGS: Slight rhonchi at the bases of both lungs. HEART: Regular S1 and S2. No murmurs, rubs or gallops. ABDOMEN: Bowel sounds present. Soft, no tenderness appreciated. No palpable mass. EXTREMITIES: No clubbing, cyanosis or edema. SKIN: No diffuse rash. NEUROLOGIC: Generalized weakness. Otherwise, nonfocal. PSYCHIATRIC: Calm and cooperative. IMPRESSION: Fever and leukocytosis in patient with abnormal chest x-ray and CT angiogram both of which show infiltrates with a consolidative infiltrate in the right lower lobe on the CT angiogram and airspace disease in the left lower lung zone on the chest x-ray. Temperature has improved. 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 Leukocytosis likely due to steroids or reactive to inflammation. Clinically appears stable. RECOMMENDATIONS: 1. Continue piperacillin/tazobactam and azithromycin for pulmonary coverage. 2. Continue to treat with steroids. 3. Obtain sputum culture if she has any sputum production. 4. Monitor white blood cell count. If it quickly normalizes, the antibiotics can be tapered or discontinued. Bart Burrell MD Feb 22, 2018 12:51
--- NOTE | 2018-02-22 13:45 | HHI.GIFU ---
Subjective Remarks resting in the bed eating solid food, No nausea/vomiting/dysphagia afebrile Still has mild Mid and RUQ pain. tachycardia, 109 (Charlette Antony) Objective Vitals I&O Vital Signs Date Time Temp Pulse Resp B/P (MAP) Pulse Ox O2 Delivery O2 Flow Rate FiO2 02/22/18 12:00 103 02/22/18 12:00 98.4 103 20 133/79 (97) 97 02/22/18 10:00 110 02/22/18 08:00 98.2 102 20 139/85 (103) 98 02/22/18 08:00 102 02/22/18 07:13 97 Nasal Cannula 3.00 02/22/18 06:00 109 11 153/92 (112) 97 02/22/18 06:00 109 02/22/18 05:00 110 32 145/95 (112) 98 02/22/18 04:00 106 02/22/18 04:00 98.4 106 12 158/98 (118) 97 02/22/18 03:00 101 13 149/90 (109) 99 02/22/18 02:00 107 12 139/88 (105) 99 02/22/18 02:00 107 02/22/18 01:00 108 5 136/93 (107) 97 02/22/18 00:00 108 02/22/18 00:00 98.7 108 22 141/88 (105) 99 02/21/18 23:00 112 30 147/89 (108) 98 02/21/18 22:00 115 02/21/18 22:00 115 10 151/95 (113) 96 02/21/18 21:00 115 8 145/83 (103) 97 02/21/18 20:00 119 02/21/18 20:00 98.2 119 19 140/92 (108) 96 02/21/18 19:35 97 Nasal Cannula 3.00 02/21/18 18:00 113 02/21/18 16:00 118 02/21/18 16:00 98.4 118 21 140/82 (101) 100 02/21/18 14:00 118 I/O 02/21/18 02/21/18 02/21/18 02/22/18 02/22/18 02/22/18 07:00 15:00 23:00 07:00 15:00 23:00 Intake Total 3515 ml 1000 ml 1435 ml 2860 ml Output Total 400 ml 300 ml 600 ml 600 ml Balance 3115 ml 700 ml 835 ml 2260 ml Intake Oral 480 ml 720 ml 960 ml IV Total 1565 ml 1000 ml 715 ml 1900 ml Packed Cells 800 ml Blood Product IV Normal Saline Flush 670 ml Output Urine Total 400 ml 300 ml 600 ml 600 ml # Voids 3 # Bowel Movements 0 0 Laboratory Laboratory Tests Test 02/21/18 14:45 02/22/18 04:24 Urine Color YELLOW Urine Turbidity HAZY Urine pH 6.0 Urine Specific [employer] 1.026 Urine Protein 100 Urine Glucose (UA) NEG Urine Ketones NEG Urine Occult Blood SMALL Urine Nitrite NEG Urine Bilirubin NEG Urine Urobilinogen LESS THAN 2.0 Urine Leukocyte Esterase NEG Urine RBC 2 Urine WBC 2 Urine Squamous Epithelial Cells 2 Urine Transitional Epithelial Cells 1 Microscopic Urinalysis Comment CULT NOT INDICATED White Blood Count 22.0 Red Blood Count 5.21 Hemoglobin 10.9 Hematocrit 34.6 Mean Corpuscular Volume 66.3 Mean Corpuscular Hemoglobin 20.9 Mean Corpuscular Hemoglobin Concent 31.5 Red Cell Distribution Width 29.7 Platelet Count 468 Mean Platelet Volume 8.4 Neutrophils (%) (Auto) 92.2 Lymphocytes (%) (Auto) 4.8 Monocytes (%) (Auto) 2.7 Eosinophils (%) (Auto) 0.0 Basophils (%) (Auto) 0.3 Neutrophils # (Auto) 20.2 Lymphocytes # (Auto) 1.1 Monocytes # (Auto) 0.6 Eosinophils # (Auto) 0.0 Basophils # (Auto) 0.1 CBC Comment AUTO DIFF Differential Comment AUTO DIFF CONFIRMED Platelet Estimate HIGH Platelet Morphology Comment ENLARGED Tear Drop Cells 1+ Ovalocytes 1+ Acanthocytes OCC Blood Urea Nitrogen 17 Creatinine 0.95 Random Glucose 172 Total Protein 8.3 Albumin 1.4 Calcium Level 8.3 Alkaline Phosphatase 183 Aspartate Amino Transf (AST/SGOT) 34 Alanine Aminotransferase (ALT/SGPT) 17 Total Bilirubin 0.3 Sodium Level 139 Potassium Level 3.9 Chloride Level 108 Carbon Dioxide Level 22.8 Anion Gap 8 Estimat Glomerular Filtration Rate 87 Date/Time Source Procedure Growth Status 02/20/18 13:03 Blood Peripheral Aerobic Blood Culture - Preliminary NO GROWTH IN 2 DAYS Resulted 02/20/18 13:03 Blood Peripheral Anaerobic Blood Culture - Preliminary NO GROWTH IN 2 DAYS Resulted 02/20/18 16:30 Urine Clean Catch Legionella Antigen - Final PRESUMPTIVE NEGATIVE FOR LEGIONELLA P... Complete 02/20/18 16:30 Urine Clean Catch Streptococcus pneumoniae Antigen (M - Final PRESUMPTIVE NEGATIVE FOR STREPTOCOCCU... Complete Imaging Last Impressions CT Angiography 02/20/18 1224 Signed Impressions: Service Date/Time: Tuesday, February 20, 2018 13:29 - CONCLUSION: Consolidative changes right lower lobe Left axillary adenopathy that has progressed in the interval. Findings are suspicious for inflammatory process. Thomas Phillips MD FACRADDENDUM: No evidence of pulmonary embolism identified. Sage Otto MD Chest X-Ray 02/20/18 1109 Signed Impressions: Service Date/Time: Tuesday, February 20, 2018 11:40 - CONCLUSION: 1. Poor inspiratory effort with mild airspace disease in the left lower lung zone which may reflect atelectasis although pneumonia cannot be excluded in the appropriate clinical setting. 2. Cardiomegaly. Justo Granados MD Abdomen/Pelvis CT 02/20/18 0000 Signed Impressions: Service Date/Time: February 02:46 - CONCLUSION: 1. Right basilar consolidation and small right pleural effusion. 2. Small amount of abdominal ascites. 3. Right inguinal adenopathy. 4. Borderline retroperitoneal adenopathy. William Bernardo MD Physical Exam HEENT: Pupils round and reactive to light; normocephalic; atraumatic; no jaundice. Speech raspy NECK: Neck is supple, CHEST: Chest Dinished BS, Lt> Rt. , mild Exertional SOB with talking CARDIAC: Regular rate , tachy rhythm ABDOMEN: round, obese, Soft, bowel sounds are present in all four quadrants.Tender to light palpation , Mid and RUQ EXTREMITIES: Trace LE edema. SKIN: Normal; no rash; no jaundice. COMPETITIVE INTELLIGENCE ANALYST: No focal deficits; alert and oriented times three. (Charlette Antony) Assessment and Plan Plan ASSESSMENT/History - blood in stool - isolated episode small amt red blood in stool, no prior hx GIB. could be hemorrhoids heme pos stool - anemia - this is probably chronic. hgb 8 on admission. microcytic - epigastric pain - concern for ulcer. pt has been using frequent NSAIDs, ibuprofen and more recently diclofenac.. CT showing small ascites, inguinal adenopathy, mild retroperitoneal adenopathy - SLE, PNA 02/22/18 NSAID use , Probable use of GIB. Tolerating solid food without nausea/vomiting. Sill has Gastric/epigastric tenderness and some RUQ tenderness/radiation. CT noted some ascites, unknown etiology? PLAN - CARLOS, able to eat 80 % of food today. - EGD and colonoscopy consider Sunday. Monitor over weekend. Still has Some SOB and tachycardia. No BM since adm. - PPI - Antiemetics - Bowel regimen, Miralax added. - monitor labs - transfuse as needed - notify GI of active bleeding - further recs to follow Patient was seen per myself and Dr. Morales, note was written on his behalf. (Charlette Antony) Plan Patient was seen and examined, doing slightly better, shortness of breath is better, discuss with ID plan: EGD on Sunday (Marco Morales MD) Charlette Antony Feb 22, 2018 13:45 Marco Morales MD Feb 22, 2018 17:05
[2018-02-22] MEDS: POLYETHYLENE GLYCOL 17 GM PKG PO SCH (14:59)
[2018-02-22] MEDS: AZITHROMYCIN 250 MG TAB PO SCH (14:59)
[2018-02-23] VITALS (12 sets, daily range): BP systolic 140–160; BP diastolic 90–98; PULSE 84–112; RESP 13–24; TEMP 97.6–98.7; O2SAT 96–99
[2018-02-23 04:15] LABS: AUTOMATED NEUTROPHIL # 10.2 TH/MM3 (1.8-7.7); BASOPHIL % 0.2 % (0.0-2.0); HEMATOCRIT 32.3 % (35.0-46.0); LYMPHOCYTE # 0.7 TH/MM3 (1.0-4.8); MEAN CELL VOLUME 66.3 FL (80.0-100.0); MEAN CORPUSCULAR HEMOGLOBIN 20.6 PG (27.0-34.0); MEAN PLATELET VOLUME 8.4 FL (7.0-11.0); MONO % 3.2 % (0.0-8.0); MONOCYTE # 0.4 TH/MM3 (0-0.9); NEUT % 90.6 % (16.0-70.0); PLATELET COUNT 429 TH/MM3 (150-450); RED BLOOD COUNT 4.87 MIL/MM3 (4.00-5.30); RED CELL DISTRIBUTION WIDTH 29.7 % (11.6-17.2); WHITE BLOOD COUNT 11.3 TH/MM3 (4.0-11.0)
[2018-02-23 04:33] LABS: ALBUMIN 1.4 GM/DL (3.4-5.0); AST (GOT) 22 U/L (15-37); BICARBONATE 21.1 MEQ/L (21.0-32.0); BLOOD UREA NITROGEN 20 MG/DL (7-18); CALCIUM 8.3 MG/DL (8.5-10.1); CHLORIDE 110 MEQ/L (98-107); CREATININE 1.11 MG/DL (0.50-1.00); GLOMERULAR FILTRATION RATE 72 ML/MIN (>89); GLUCOSE,RANDOM 269 MG/DL (74-106); SODIUM (NA) 140 MEQ/L (136-145)
[2018-02-23 04:34] LABS: ALT (GPT) 16 U/L (10-53)
[2018-02-23 04:36] LABS: ALKALINE PHOSPHATASE 171 U/L (45-117); TOTAL BILIRUBIN ADULT 0.2 MG/DL (0.2-1.0); TOTAL PROTEIN 7.8 GM/DL (6.4-8.2)
[2018-02-23] MEDS: CHLORHEXIDINE GLUCONATE 2 % 1 PACK (2 CLOTHS)(taper/protocol) TOPICAL SCH (06:53)
[2018-02-23] MEDS: SODIUM CHLOR 0.9% 1000 ML INJ 1,000 ML IV SCH ×4 (06:53→21:11)
[2018-02-23] MEDS: PIPERACIL-TAZO 4.5 GM PREMIX 100 ML IV SCH ×3 (06:54→16:49)
[2018-02-23] MEDS: MORPHINE SULFATE 4 MG/ML INJ IV PUSH PRN ×2 (06:54→11:59)
[2018-02-23] MEDS: methylPREDNISolone SOD SUCC 125 MG/2 ML VIAL IV PUSH SCH ×3 (06:54→16:49)
[2018-02-23] MEDS: RESP: ALBUTEROL 2.5 MG/IPRATROPIUM 0.5 MG NEB (SCH) NEB ×4 (08:00→19:25)
[2018-02-23 08:43] LABS: ACANTHOCYTES OCC (NORMAL); OVALOCYTES 1+ (NORMAL)
[2018-02-23 08:44] LABS: TEARDROP RBCS 1+ (NORMAL)
[2018-02-23] MEDS: DOCUSATE SODIUM 50 MG/SENNA 8.6 MG TAB PO SCH ×2 (08:52→21:00)
[2018-02-23] MEDS: SODIUM CHLORIDE 0.9% FLUSH 10 ML FLUSH IV FLUSH SCH ×2 (08:52→21:00)
[2018-02-23] MEDS: FERROUS SULFATE 325 MG (65 MG ELEMENTAL IRON) TAB PO SCH (08:52)
[2018-02-23] MEDS: amLODIPine BESYLATE 5 MG TAB PO SCH (08:52)
[2018-02-23] MEDS: PANTOPRAZOLE SOD 40 MG DELAYED RELEASE TAB PO SCH ×2 (08:52→21:08)
[2018-02-23] MEDS: POLYETHYLENE GLYCOL 17 GM PKG PO SCH (08:53)
--- NOTE | 2018-02-23 09:36 | HHI.FPPN ---
Subjective Remarks Patient seen and examined. She states that she feels a lot better with her breathing this morning. No chest pain, no current shortness of breath, no fever or chills, no abdominal pain, no nausea/vomiting, had a BM this AM. Per nurse had tachypnea overnight and elevated BPs. (Gerogiana Etienne MD R1) Objective Vitals Vital Signs Date Time Temp Pulse Resp B/P (MAP) Pulse Ox O2 Delivery O2 Flow Rate FiO2 02/23/18 06:00 91 02/23/18 04:00 102 02/23/18 04:00 98.5 102 24 159/97 (117) 97 02/23/18 02:00 104 02/23/18 00:00 98.7 111 21 160/95 (116) 96 02/23/18 00:00 111 02/22/18 23:00 115 31 159/95 (116) 95 02/22/18 22:00 109 17 155/104 (121) 96 02/22/18 21:52 95 Nasal Cannula 2.00 02/22/18 21:00 109 28 154/102 (119) 97 02/22/18 20:00 114 02/22/18 20:00 114 30 156/96 (116) 96 02/22/18 18:00 112 02/22/18 16:00 113 02/22/18 16:00 98.0 113 29 152/91 (111) 95 02/22/18 14:00 108 02/22/18 12:00 103 02/22/18 12:00 98.4 103 20 133/79 (97) 97 02/22/18 10:00 110 I/O 02/22/18 02/22/18 02/22/18 02/23/18 02/23/18 02/23/18 07:00 15:00 23:00 07:00 15:00 23:00 Intake Total 2860 ml 100 ml 1075 ml 2860 ml Output Total 600 ml 625 ml Balance 2260 ml 100 ml 450 ml 2860 ml Intake Oral 960 ml 975 ml 960 ml IV Total 1900 ml 100 ml 100 ml 1900 ml Output Urine Total 600 ml 625 ml # Voids 3 # Bowel Movements 0 0 1 (Georgiana Etienne MD R1) Result Diagram: 02/23/1834402/23/18344 Objective Remarks GENERAL: NAD, lying in bed NEURO: Alert. Normal speech. switchboard troubleshooter grossly intact. Motor grossly normal. SKIN: Warm and dry. No rashes or erythema. HEAD: Normocephalic. Atraumatic. EYES: EOMI. No scleral icterus. No injection or drainage. ENT: No nasal drainage. Moist mucous membranes. Few oral ulcers noted. NECK: Supple, trachea midline. No JVD or lymphadenopathy. CARDIOVASCULAR: Slightly tachycardic rate, regular rhythm, without murmurs, rubs , or gallops. Peripheral pulses 2+. Capillary refill < 2 seconds. RESPIRATORY: Improved inspiratory effort from admission. Faint end expiratory wheezing. Coarse breath sounds throughout. Equal breath sounds bilaterally. GASTROINTESTINAL: Abdomen soft, nontender, nondistended. No organomegaly or masses. No rebound tenderness. No guarding. MUSCULOSKELETAL: No lower extremity edema. Normal range of motion. BACK: Nontender without obvious deformity. (Georgiana Etienne MD R1) A/P Assessment and Plan 27 year old female with recent diagnosis of SLE admitted for sepsis due to pneumonia, suspect this could be related to severe lupus. Discharge Planning Anticipate discharge home once clinically stable, patient still requiring IV antibiotics and steroids. Infectious disease and gastroenterology still following. (Georgiana Etienne MD R1) Attending Attestation Patient seen and examined. Case reviewed and discussed with the resident team. Agree with plan of care as discussed with me and documented in the resident note. she stated her tacypnea was from a panic attack and otherwise she has been breathing well (Mili Hyde MD) Problem List: (1) SLE (systemic lupus erythematosus) ICD Codes: M32.9 - Systemic lupus erythematosus, unspecified Plan: Patient recently diagnosed with SLE this past Sunday 02/18 Hold home prednisone and NSAIDs. will give high dose steroids as lupus pneumonitis is high in the differential Continue Solumedrol 250 mg IV q6h Discussed case with the patients outpatient cut in worker who agrees with current treatment plan, has faxed over prior lab workup (2) Sepsis ICD Codes: A41.9 - Sepsis, unspecified organism Status: Acute Plan: Patient meeting sepsis criteria with pulse of 150, respiratory rate of 24 , WBC 14.0 on admission Lactic acid 1.1 Source presumed due to pneumonia Further plan as below her fevers could be related to lupus as she has been having these at home (3) Community acquired pneumonia ICD Codes: J18.9 - Pneumonia, unspecified organism Status: Acute Plan: Consolidative changes in the right lower lobe noted on CT pulmonary angiography s/p Rocephin 2gm IV x1 and azithromycin 500mg IV x1 in ED Discontinued Rocephin 2gm IV q24h Continue azithromycin 250 mg po daily NS at 150 cc/hr Urinary pneumococcal and Legionella antigens presumptive negatives Obtain sputum culture once sputum is expectorated Blood culture no growth after one day Supportive therapy with supplemental oxygen as needed to maintain O2 sats > 92% Duonebs q4h while awake, q2h prn Infectious disease consulted, appreciate recommendations Continue Zosyn 4.5 gm IV q6h (started 02/20) Continue Azithromycin (started 02/20) Discontinued Vancomycin (4) Chest pain ICD Codes: R07.9 - Chest pain, unspecified Status: Acute Plan: CTPA as above, in findings per radiology report at this time it is noted patient having posterior central pulmonary emboli which was not transferred to the conclusion findings, radiology called regarding this and have reviewed the films and state the patient does not have pulmonary emboli, report to be amended EKG sinus tachycardia, no significant ST changes Consider on differential pericarditis given her SLE although she is young, costochondritis, pleuritis, or chest pain due to her pneumonia Chest pain improving, continue to monitor Morphine 4 mg IV q4h prn pain 6-10, morphine 2 mg IV q4h prn breakthrough pain (5) Stool guaiac positive ICD Codes: R19.5 - Other fecal abnormalities Status: Acute Plan: Stool is guaiac positive per ED report and documentation Hgb 8.0, stable from prior visits, stable this AM Patient endorsing bright red blood on toilet paper when wiping at home Does have history of moderate NSAID, motrin and diclofenac Gastroenterology consulted Continue protonix 40 mg po bid Blood type O+ Will transfuse pRBCs if Hgb < 7.0 s/p 2 units pRBCs transfused on 02/20 GI planning for EGD and colonoscopy when more stable, inpt vs outpt (6) Anemia ICD Codes: D64.9 - Anemia, unspecified Status: Chronic Plan: Plan as above Continue home ferrous sulfate (7) Thrombocytosis ICD Codes: D47.3 - Essential (hemorrhagic) thrombocythemia Status: Resolved Plan: Platelet count elevated to 787,000 on admission, downtrending Consider on differential reactive thrombocytosis, due to SLE, or due to acute blood loss, chronic iron and b12 deficiency, or infection Continue to monitor suspect this is reactive as she is so inflamed at this point (8) Hypertension ICD Codes: I10 - Essential (primary) hypertension Status: Chronic Plan: Monitor vitals q4h Start home amlodipine due to elevated BPs (9) Nutrition, metabolism, and development symptoms ICD Codes: R63.8 - Other symptoms and signs concerning food and fluid intake Status: Acute Plan: Fluids: NS at 150 cc/hr Electrolytes: WNL, continue to monitor Nutrition: Regular GI ppx: Protonix 40 mg po bid DVT ppx: b/l SCDs, holding chemical anticoagulation given her suspected GI bleed Anxiety: xanax 0.25 mg po tid as needed (Georgiana Etienne MD R1) Problem Qualifiers (1) SLE (systemic lupus erythematosus): Qualified Codes: M32.13 - Lung involvement in systemic lupus erythematosus (2) Sepsis: Qualified Codes: A41.9 - Sepsis, unspecified organism (3) Community acquired pneumonia: Qualified Codes: J18.9 - Pneumonia, unspecified organism (4) Chest pain: Qualified Codes: R07.9 - Chest pain, unspecified (5) Anemia: Qualified Codes: D64.9 - Anemia, unspecified (6) Hypertension: Qualified Codes: I10 - Essential (primary) hypertension Georgiana Etienne MD R1 Feb 23, 2018 09:36 Mili Hyde MD Feb 25, 2018 11:42
[2018-02-23] MEDS ORDERED: LORazepam 1 MG TAB PO PRN (10:45)
[2018-02-23] MEDS ORDERED: LABETALOL HCL 100 MG/20 ML VIAL IV PUSH PRN (10:45)
--- NOTE | 2018-02-23 11:36 | HHI.GIFU ---
Subjective Remarks Pt resting in bed. No GI complaints. Eating. (Alicia Lee) Objective Vitals I&O Vital Signs Date Time Temp Pulse Resp B/P (MAP) Pulse Ox O2 Delivery O2 Flow Rate FiO2 02/23/18 10:00 112 02/23/18 08:00 84 02/23/18 08:00 97.7 84 19 154/98 (116) 98 02/23/18 06:00 91 02/23/18 04:00 102 02/23/18 04:00 98.5 102 24 159/97 (117) 97 02/23/18 02:00 104 02/23/18 00:00 98.7 111 21 160/95 (116) 96 02/23/18 00:00 111 02/22/18 23:00 115 31 159/95 (116) 95 02/22/18 22:00 109 17 155/104 (121) 96 02/22/18 21:52 95 Nasal Cannula 2.00 02/22/18 21:00 109 28 154/102 (119) 97 02/22/18 20:00 114 02/22/18 20:00 114 30 156/96 (116) 96 02/22/18 18:00 112 02/22/18 16:00 113 02/22/18 16:00 98.0 113 29 152/91 (111) 95 02/22/18 14:00 108 02/22/18 12:00 103 02/22/18 12:00 98.4 103 20 133/79 (97) 97 I/O 02/22/18 02/22/18 02/22/18 02/23/18 02/23/18 02/23/18 07:00 15:00 23:00 07:00 15:00 23:00 Intake Total 2860 ml 100 ml 1075 ml 2860 ml Output Total 600 ml 625 ml Balance 2260 ml 100 ml 450 ml 2860 ml Intake Oral 960 ml 975 ml 960 ml IV Total 1900 ml 100 ml 100 ml 1900 ml Output Urine Total 600 ml 625 ml # Voids 3 # Bowel Movements 0 0 1 Laboratory Laboratory Tests Test 02/23/18 03:45 White Blood Count 11.3 Red Blood Count 4.87 Hemoglobin 10.0 Hematocrit 32.3 Mean Corpuscular Volume 66.3 Mean Corpuscular Hemoglobin 20.6 Mean Corpuscular Hemoglobin Concent 31.0 Red Cell Distribution Width 29.7 Platelet Count 429 Mean Platelet Volume 8.4 Neutrophils (%) (Auto) 90.6 Lymphocytes (%) (Auto) 6.0 Monocytes (%) (Auto) 3.2 Eosinophils (%) (Auto) 0.0 Basophils (%) (Auto) 0.2 Neutrophils # (Auto) 10.2 Lymphocytes # (Auto) 0.7 Monocytes # (Auto) 0.4 Eosinophils # (Auto) 0.0 Basophils # (Auto) 0.0 CBC Comment AUTO DIFF Differential Comment AUTO DIFF CONFIRMED Platelet Estimate HIGH Platelet Morphology Comment ENLARGED Tear Drop Cells 1+ Ovalocytes 1+ Acanthocytes OCC Blood Urea Nitrogen 20 Creatinine 1.11 Random Glucose 269 Total Protein 7.8 Albumin 1.4 Calcium Level 8.3 Alkaline Phosphatase 171 Aspartate Amino Transf (AST/SGOT) 22 Alanine Aminotransferase (ALT/SGPT) 16 Total Bilirubin 0.2 Sodium Level 140 Potassium Level 3.6 Chloride Level 110 Carbon Dioxide Level 21.1 Anion Gap 9 Estimat Glomerular Filtration Rate 72 Date/Time Source Procedure Growth Status 02/20/18 13:03 Blood Peripheral Aerobic Blood Culture - Preliminary NO GROWTH IN 3 DAYS Resulted 02/20/18 13:03 Blood Peripheral Anaerobic Blood Culture - Preliminary NO GROWTH IN 3 DAYS Resulted 02/20/18 16:30 Urine Clean Catch Legionella Antigen - Final PRESUMPTIVE NEGATIVE FOR LEGIONELLA P... Complete 02/20/18 16:30 Urine Clean Catch Streptococcus pneumoniae Antigen (M - Final PRESUMPTIVE NEGATIVE FOR STREPTOCOCCU... Complete Imaging Last Impressions CT Angiography 02/20/18 1224 Signed Impressions: Service Date/Time: Tuesday, February 20, 2018 13:29 - CONCLUSION: Consolidative changes right lower lobe Left axillary adenopathy that has progressed in the interval. Findings are suspicious for inflammatory process. Thomas Phillips MD FACRADDENDUM: No evidence of pulmonary embolism identified. Sage Otto MD Chest X-Ray 02/20/18 1109 Signed Impressions: Service Date/Time: Tuesday, February 20, 2018 11:40 - CONCLUSION: 1. Poor inspiratory effort with mild airspace disease in the left lower lung zone which may reflect atelectasis although pneumonia cannot be excluded in the appropriate clinical setting. 2. Cardiomegaly. Justo Granados MD Abdomen/Pelvis CT 4/11/18 0000 Signed Impressions: Service Date/Time: February 02:46 - CONCLUSION: 1. Right basilar consolidation and small right pleural effusion. 2. Small amount of abdominal ascites. 3. Right inguinal adenopathy. 4. Borderline retroperitoneal adenopathy. William Bernardo MD Physical Exam HEENT: PERRL; normocephalic; atraumatic; no jaundice. CHEST: diminished CARDIAC: RRR ABDOMEN: obese, Soft, BS+ EXTREMITIES: Trace LE edema. SKIN: Normal; no rash; no jaundice. 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 (Alicia Lee) Assessment and Plan Plan ASSESSMENT/History - blood in stool - isolated episode small amt red blood in stool, no prior hx GIB. could be hemorrhoids heme pos stool - anemia - this is probably chronic. hgb 8 on admission. microcytic - epigastric pain - concern for ulcer. pt has been using frequent NSAIDs, ibuprofen and more recently diclofenac.. CT showing small ascites, inguinal adenopathy, mild retroperitoneal adenopathy - SLE, PNA 02/22/18 NSAID use , Probable use of GIB. Tolerating solid food without nausea/vomiting. Sill has Gastric/epigastric tenderness and some RUQ tenderness/radiation. CT noted some ascites, unknown etiology? 02/23/18 HH is stable, no obvious bleeding. respiratory status seems to be improving somewhat. PLAN - EGD and colonoscopy Sunday - obtain consent - clear liquid tomorrow - NPO after midnight tomorrow night - monitor labs - notify GI of active bleeding - supportive care Patient was seen per myself and Dr. Morales, note was written on his behalf. (Alicia Lee) Plan Patient was seen and examined, agree with above note, seems to be better, plan for: EGD tomorrow hopefully her respiratory status will be better (Marco Morales MD) Alicia Lee Feb 23, 2018 11:36 Marco Morales MD Feb 23, 2018 12:11
[2018-02-23] MEDS: AZITHROMYCIN 250 MG TAB PO SCH (14:12)
[2018-02-23] MEDS: MORPHINE SULFATE 2 MG/ML SYRINGE IV PUSH PRN ×2 (17:01→21:09)
[2018-02-24] VITALS (7 sets, daily range): BP systolic 157–163; BP diastolic 77–98; PULSE 61–98; RESP 18; TEMP 97.4–98.7; O2SAT 96–100
[2018-02-24] MEDS: PIPERACIL-TAZO 4.5 GM PREMIX 100 ML IV SCH ×4 (00:16→18:44)
[2018-02-24] MEDS: methylPREDNISolone SOD SUCC 125 MG/2 ML VIAL IV PUSH SCH ×4 (00:17→18:44)
[2018-02-24] MEDS: CHLORHEXIDINE GLUCONATE 2 % 1 PACK (2 CLOTHS)(taper/protocol) TOPICAL SCH (04:00)
[2018-02-24] MEDS: SODIUM CHLOR 0.9% 1000 ML INJ 1,000 ML IV SCH ×2 (05:15→13:56)
[2018-02-24] MEDS: SODIUM CHLORIDE 0.9% FLUSH 10 ML FLUSH IV FLUSH SCH ×2 (07:50→19:39)
[2018-02-24] MEDS: FERROUS SULFATE 325 MG (65 MG ELEMENTAL IRON) TAB PO SCH (07:54)
[2018-02-24] MEDS: PANTOPRAZOLE SOD 40 MG DELAYED RELEASE TAB PO SCH ×2 (07:54→19:38)
[2018-02-24] MEDS: amLODIPine BESYLATE 5 MG TAB PO SCH (07:54)
[2018-02-24] MEDS: POLYETHYLENE GLYCOL 17 GM PKG PO SCH (07:56)
[2018-02-24] MEDS: DOCUSATE SODIUM 50 MG/SENNA 8.6 MG TAB PO SCH ×2 (07:56→19:38)
[2018-02-24 08:09] LABS: AUTOMATED NEUTROPHIL # 5.7 TH/MM3 (1.8-7.7); BASOPHIL % 0.1 % (0.0-2.0); HEMATOCRIT 29.7 % (35.0-46.0); HEMOGLOBIN 9.3 GM/DL (11.6-15.3); LYMPH % 9.1 % (9.0-44.0); LYMPHOCYTE # 0.6 TH/MM3 (1.0-4.8); MEAN CELL VOLUME 66.1 FL (80.0-100.0); MEAN CORPUSCULAR HEMOGLOBIN 20.8 PG (27.0-34.0); MEAN CORPUSCULAR HGB CONC 31.4 % (32.0-36.0); MEAN PLATELET VOLUME 8.5 FL (7.0-11.0); MONO % 5.2 % (0.0-8.0); MONOCYTE # 0.3 TH/MM3 (0-0.9); NEUT % 85.6 % (16.0-70.0); PLATELET COUNT 405 TH/MM3 (150-450); RED BLOOD COUNT 4.49 MIL/MM3 (4.00-5.30); RED CELL DISTRIBUTION WIDTH 29.2 % (11.6-17.2); WHITE BLOOD COUNT 6.6 TH/MM3 (4.0-11.0)
[2018-02-24] MEDS: RESP: ALBUTEROL 2.5 MG/IPRATROPIUM 0.5 MG NEB (SCH) NEB ×2 (08:12→12:16)
[2018-02-24 08:34] LABS: ALBUMIN 1.4 GM/DL (3.4-5.0); AST (GOT) 20 U/L (15-37); BICARBONATE 22.1 MEQ/L (21.0-32.0); BLOOD UREA NITROGEN 21 MG/DL (7-18); CALCIUM 8.1 MG/DL (8.5-10.1); CHLORIDE 111 MEQ/L (98-107); GLOMERULAR FILTRATION RATE 92 ML/MIN (>89); GLUCOSE,RANDOM 279 MG/DL (74-106); SODIUM (NA) 142 MEQ/L (136-145)
[2018-02-24 08:38] LABS: ALKALINE PHOSPHATASE 150 U/L (45-117); ALT (GPT) 14 U/L (10-53); TOTAL BILIRUBIN ADULT 0.2 MG/DL (0.2-1.0)
[2018-02-24 09:34] LABS: BANDS 2 % (0-6); CORRECTED NUCLEATED RBC 3 /100 WBC (0-0); LYMPHOCYTES 5 % (9-44); MONOCYTES 4 % (0-8); MYELOCYTES 1 % (0-0); NUCLEATED RED BLOOD CELL 3 (0-0); OVALOCYTES 1+ (NORMAL); POLYS (SEG NEUTROPHILS) 88 % (16-70); TEARDROP RBCS 1+ (NORMAL)
[2018-02-24] MEDS ORDERED: EUCERIN CREAM 120 GM JAR TOPICAL PRN (10:15)
[2018-02-24] MEDS ORDERED: amLODIPine BESYLATE 5 MG TAB PO ONE (10:15)
--- NOTE | 2018-02-24 10:32 | HHI.FPPN ---
Subjective Remarks Patient seen and examined this morning. She states that she is doing a lot better. She is having significantly decreased pain and is able to move/ ambulate more. Her breathing has also improved. No fevers or chills, no chest pain, no abdominal pain, no nausea vomiting, no trouble urinating or with bowel movements. No blood in her stools or when she wipes. However, she has a cough productive of a little bit of sputum. (Georgiana Etienne MD R1) Objective Vitals Vital Signs Date Time Temp Pulse Resp B/P (MAP) Pulse Ox O2 Delivery O2 Flow Rate FiO2 02/24/18 08:22 97.4 61 18 161/77 (105) 100 02/24/18 08:13 97 Nasal Cannula 4.00 02/24/18 05:31 97.9 79 18 161/96 (117) 97 02/24/18 01:32 98.7 98 18 160/98 (118) 97 02/23/18 20:50 97.7 102 18 157/93 (114) 99 02/23/18 19:26 97 Nasal Cannula 4.00 02/23/18 17:09 16 02/23/18 16:00 97.9 106 18 140/90 (107) 96 02/23/18 14:00 99 02/23/18 12:04 13 02/23/18 12:02 97 Nasal Cannula 2.00 02/23/18 12:00 103 02/23/18 12:00 97.6 103 13 148/93 (111) 98 02/23/18 10:00 112 I/O 02/23/18 02/23/18 02/23/18 02/24/18 02/24/18 02/24/18 07:00 15:00 23:00 07:00 15:00 23:00 Intake Total 2860 ml 1000 ml Balance 2860 ml 1000 ml Intake Oral 960 ml IV Total 1900 ml 1000 ml # Voids 3 1 # Bowel Movements 1 (Georgiana Etienne MD R1) Result Diagram: 02/24/18 0650 02/24/[address] Angiography 02/20/18 1224 Signed Impressions: Service Date/Time: Tuesday, February 20, 2018 13:29 - CONCLUSION: Consolidative changes right lower lobe Left axillary adenopathy that has progressed in the interval. Findings are suspicious for inflammatory process. Thomas Phillips MD FACRADDENDUM: No evidence of pulmonary embolism identified. Sage Otto MD Chest X-Ray 02/20/18 1109 Signed Impressions: Service Date/Time: Tuesday, February 20, 2018 11:40 - CONCLUSION: 1. Poor inspiratory effort with mild airspace disease in the left lower lung zone which may reflect atelectasis although pneumonia cannot be excluded in the appropriate clinical setting. 2. Cardiomegaly. Justo Granados MD Abdomen/Pelvis CT 02/20/18 0000 Signed Impressions: Service Date/Time: February 02:46 - CONCLUSION: 1. Right basilar consolidation and small right pleural effusion. 2. Small amount of abdominal ascites. 3. Right inguinal adenopathy. 4. Borderline retroperitoneal adenopathy. William Bernardo MD Objective Remarks GENERAL: NAD, lying in bed watching TV NEURO: Alert. Normal speech. 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 Motor grossly normal. SKIN: Warm and dry. No rashes or erythema. HEAD: Normocephalic. Atraumatic. EYES: EOMI. No scleral icterus. No injection or drainage. ENT: No nasal drainage. Moist mucous membranes. Few oral ulcers noted. NECK: Supple, trachea midline. No JVD or lymphadenopathy. CARDIOVASCULAR: Slightly tachycardic rate, regular rhythm, without murmurs, rubs , or gallops. Peripheral pulses 2+. Capillary refill < 2 seconds. RESPIRATORY: Improved inspiratory effort from admission. Faint end expiratory wheezing. Coarse breath sounds throughout. Equal breath sounds bilaterally. GASTROINTESTINAL: Abdomen soft, nontender, nondistended. No organomegaly or masses. No rebound tenderness. No guarding. MUSCULOSKELETAL: No lower extremity edema. Normal range of motion. BACK: Nontender without obvious deformity. (Georgiana Etienne MD R1) A/P Assessment and Plan 27 year old female with recent diagnosis of SLE admitted for sepsis due to pneumonia, suspect this could be related to severe lupus. Discharge Planning Anticipate discharge home once clinically stable, patient still requiring IV antibiotics and steroids. Infectious disease and gastroenterology still following. (Georgiana Etienne MD R1) Attending Attestation Patient seen and examined. Case reviewed and discussed with the resident team. Agree with plan of care as discussed with me and documented in the resident note. she is getting EGD and colonoscopy and should be able to go home soon (Mili Hyde MD) Problem List: (1) SLE (systemic lupus erythematosus) ICD Codes: M32.9 - Systemic lupus erythematosus, unspecified Plan: Patient recently diagnosed with SLE this past Sunday 02/18 Hold home prednisone and NSAIDs. 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 who agrees with current treatment plan, has faxed over prior lab workup (2) Sepsis ICD Codes: A41.9 - Sepsis, unspecified organism Status: Acute Plan: Patient meeting sepsis criteria with pulse of 150, respiratory rate of 24 , WBC 14.0 on admission Lactic acid 1.1 Source presumed due to pneumonia Further plan as below her fevers could be related to lupus as she has been having these at home (3) Community acquired pneumonia ICD Codes: J18.9 - Pneumonia, unspecified organism Status: Acute Plan: Consolidative changes in the right lower lobe noted on CT pulmonary angiography s/p Rocephin 2gm IV x1 and azithromycin 500mg IV x1 in ED Discontinued Rocephin 2gm IV q24h Continue azithromycin 250 mg po daily NS at 150 cc/hr Urinary pneumococcal and Legionella antigens presumptive negatives Obtain sputum culture once sputum is expectorated Blood culture no growth after one day Supportive therapy with supplemental oxygen as needed to maintain O2 sats > 92% Duonebs q4h while awake, q2h prn Infectious disease consulted, appreciate recommendations Continue Zosyn 4.5 gm IV q6h (started 02/20) Continue Azithromycin (started 02/20) Discontinued Vancomycin (4) Chest pain ICD Codes: R07.9 - Chest pain, unspecified Status: Acute Plan: CTPA as above, in findings per radiology report at this time it is noted patient having posterior central pulmonary emboli which was not transferred to the conclusion findings, radiology called regarding this and have reviewed the films and state the patient does not have pulmonary emboli, report to be amended EKG sinus tachycardia, no significant ST changes Consider on differential pericarditis given her SLE although she is young, costochondritis, pleuritis, or chest pain due to her pneumonia Chest pain improving, continue to monitor Morphine 4 mg IV q4h prn pain 6-10, morphine 2 mg IV q4h prn breakthrough pain (5) Stool guaiac positive ICD Codes: R19.5 - Other fecal abnormalities Status: Acute Plan: Stool is guaiac positive per ED report and documentation Hgb 8.0, stable from prior visits, stable this AM Patient endorsing bright red blood on toilet paper when wiping at home Does have history of moderate NSAID, motrin and diclofenac Continue protonix 40 mg po bid Blood type O+ Will transfuse pRBCs if Hgb < 7.0 s/p 2 units pRBCs transfused on 02/20 GI consulted, appreciate recommendations -planning for EGD and colonoscopy tomorrow -Clear liquid diet today and NPO after midnight (6) Anemia ICD Codes: D64.9 - Anemia, unspecified Status: Chronic Plan: Plan as above Continue home ferrous sulfate (7) Hypertension ICD Codes: I10 - Essential (primary) hypertension Status: Chronic Plan: Monitor vitals q4h Increase amlodipine to 10mg po qD (8) Thrombocytosis ICD Codes: D47.3 - Essential (hemorrhagic) thrombocythemia Status: Resolved Plan: Platelet count elevated to 787,000 on admission, downtrended to normal Consider on differential reactive thrombocytosis, due to SLE, or due to acute blood loss, chronic iron and b12 deficiency, or infection Continue to monitor suspect this is reactive as she is so inflamed at this point (9) Nutrition, metabolism, and development symptoms ICD Codes: R63.8 - Other symptoms and signs concerning food and fluid intake Status: Acute Plan: Fluids: NS at 150 cc/hr Electrolytes: WNL, continue to monitor Nutrition: clear liquid, NPO at midnight GI ppx: Protonix 40 mg po bid DVT ppx: b/l SCDs, holding chemical anticoagulation given her suspected GI bleed Anxiety: xanax 0.25 mg po tid as needed (Georgiana Etienne MD R1) Problem Qualifiers (1) SLE (systemic lupus erythematosus): Qualified Codes: M32.13 - Lung involvement in systemic lupus erythematosus (2) Sepsis: Qualified Codes: A41.9 - Sepsis, unspecified organism (3) Community acquired pneumonia: Qualified Codes: J18.9 - Pneumonia, unspecified organism (4) Chest pain: Qualified Codes: R07.9 - Chest pain, unspecified (5) Anemia: Qualified Codes: D64.9 - Anemia, unspecified (6) Hypertension: Qualified Codes: I10 - Essential (primary) hypertension Georgiana Etienne MD R1 Feb 24, 2018 10:32 Mili Hyde MD Feb 25, 2018 11:43
[2018-02-24] MEDS: AZITHROMYCIN 250 MG TAB PO SCH (13:56)
--- NOTE | 2018-02-24 14:41 | HHI.GIFU ---
Subjective Remarks PT is resting in bed, PT in the room. Pt is having regular BM, no more bleeding , denies n/V or abd pain. (Sarah Reagan) Objective Vitals I&O Vital Signs Date Time Temp Pulse Resp B/P (MAP) Pulse Ox O2 Delivery O2 Flow Rate FiO2 02/24/18 12:26 97.7 86 18 157/98 (117) 99 02/24/18 08:22 97.4 61 18 161/77 (105) 100 02/24/18 08:13 97 Nasal Cannula 4.00 02/24/18 05:31 97.9 79 18 161/96 (117) 97 02/24/18 01:32 98.7 98 18 160/98 (118) 97 02/23/18 20:50 97.7 102 18 157/93 (114) 99 02/23/18 19:26 97 Nasal Cannula 4.00 02/23/18 17:09 16 02/23/18 16:00 97.9 106 18 140/90 (107) 96 I/O 02/23/18 02/23/18 02/23/18 02/24/18 02/24/18 02/24/18 07:00 15:00 23:00 07:00 15:00 23:00 Intake Total 2860 ml 1000 ml Balance 2860 ml 1000 ml Intake Oral 960 ml IV Total 1900 ml 1000 ml # Voids 3 1 # Bowel Movements 1 Laboratory Laboratory Tests Test 02/24/18 06:50 White Blood Count 6.6 Red Blood Count 4.49 Hemoglobin 9.3 Hematocrit 29.7 Mean Corpuscular Volume 66.1 Mean Corpuscular Hemoglobin 20.8 Mean Corpuscular Hemoglobin Concent 31.4 Red Cell Distribution Width 29.2 Platelet Count 405 Mean Platelet Volume 8.5 Neutrophils (%) (Auto) 85.6 Lymphocytes (%) (Auto) 9.1 Monocytes (%) (Auto) 5.2 Eosinophils (%) (Auto) 0.0 Basophils (%) (Auto) 0.1 Neutrophils # (Auto) 5.7 Lymphocytes # (Auto) 0.6 Monocytes # (Auto) 0.3 Eosinophils # (Auto) 0.0 Basophils # (Auto) 0.0 CBC Comment AUTO DIFF Differential Total Cells Counted 100 Neutrophils % (Manual) 88 Band Neutrophils % 2 Lymphocytes % 5 Monocytes % 4 Neutrophils # (Manual) 6.0 Myelocytes 1 Nucleated Red Blood Cells 3 Differential Comment FINAL DIFF MANUAL Platelet Estimate NORMAL Platelet Morphology Comment NORMAL Tear Drop Cells 1+ Ovalocytes 1+ Blood Urea Nitrogen 21 Creatinine 0.90 Random Glucose 279 Total Protein 7.0 Albumin 1.4 Calcium Level 8.1 Alkaline Phosphatase 150 Aspartate Amino Transf (AST/SGOT) 20 Alanine Aminotransferase (ALT/SGPT) 14 Total Bilirubin 0.2 Sodium Level 142 Potassium Level 3.4 Chloride Level 111 Carbon Dioxide Level 22.1 Anion Gap 9 Estimat Glomerular Filtration Rate 92 Date/Time Source Procedure Growth Status 02/20/18 13:03 Blood Peripheral Aerobic Blood Culture - Preliminary NO GROWTH IN 4 DAYS Resulted 02/20/18 13:03 Blood Peripheral Anaerobic Blood Culture - Preliminary NO GROWTH IN 4 DAYS Resulted 02/20/18 16:30 Urine Clean Catch Legionella Antigen - Final PRESUMPTIVE NEGATIVE FOR LEGIONELLA P... Complete 02/20/18 16:30 Urine Clean Catch Streptococcus pneumoniae Antigen (M - Final PRESUMPTIVE NEGATIVE FOR STREPTOCOCCU... Complete Imaging Last Impressions CT Angiography 02/20/18 1224 Signed Impressions: Service Date/Time: Tuesday, February 20, 2018 13:29 - CONCLUSION: Consolidative changes right lower lobe Left axillary adenopathy that has progressed in the interval. Findings are suspicious for inflammatory process. Thomas Phillips MD FACRADDENDUM: No evidence of pulmonary embolism identified. Sage Otto MD Chest X-Ray 02/20/18 1109 Signed Impressions: Service Date/Time: Tuesday, February 20, 2018 11:40 - CONCLUSION: 1. Poor inspiratory effort with mild airspace disease in the left lower lung zone which may reflect atelectasis although pneumonia cannot be excluded in the appropriate clinical setting. 2. Cardiomegaly. Justo Granados MD Abdomen/Pelvis CT 02/20/18 0000 Signed Impressions: Service Date/Time: February 02:46 - CONCLUSION: 1. Right basilar consolidation and small right pleural effusion. 2. Small amount of abdominal ascites. 3. Right inguinal adenopathy. 4. Borderline retroperitoneal adenopathy. William Bernardo MD Physical Exam HEENT: PERRL; normocephalic; atraumatic; no jaundice. CHEST: diminished CARDIAC: RRR ABDOMEN: obese, Soft, BS+ EXTREMITIES: Trace LE edema. SKIN: Normal; no rash; no jaundice. 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 (Sarah Reagan) Assessment and Plan Plan Plan ASSESSMENT/History - blood in stool - isolated episode small amt red blood in stool, no prior hx GIB. could be hemorrhoids heme pos stool - anemia - this is probably chronic. hgb 8 on admission. microcytic - epigastric pain - concern for ulcer. pt has been using frequent NSAIDs, ibuprofen and more recently diclofenac.. CT showing small ascites, inguinal adenopathy, mild retroperitoneal adenopathy - SLE, PNA 02/22/18 NSAID use , Probable use of GIB. Tolerating solid food without nausea/vomiting. Sill has Gastric/epigastric tenderness and some RUQ tenderness/radiation. CT noted some ascites, unknown etiology? 02/23/18 HH is stable, no obvious bleeding. respiratory status seems to be improving somewhat. 02/24/18 hh stable, no bleeding reported PLAN - EGD and colonoscopy tomorrow - clear liquid - NPO after midnight - Golyt[place] today - monitor labs - notify GI of active bleeding - supportive care Patient was seen per myself and Dr. Morales, note was written on his behalf. (Sarah Reagan) Plan Patient was seen and examined, agree with above note, patient not sure that she wanted to do the procedure she want to talk to her mom if she agreed to have it done this can be done tomorrow otherwise can be done as an outpatient, hemoglobin stable at this point (Marco Morales MD) Sarah Reagan Feb 24, 2018 14:41 Marco Morales MD Feb 24, 2018 15:37
[2018-02-24] MEDS ORDERED: PEG (High)/E-LYTE SOLN 4000 ML BTL PO ONE (16:00)
[2018-02-24] MEDS: MORPHINE SULFATE 2 MG/ML SYRINGE IV PUSH PRN (19:40)
[2018-02-24] MEDS ORDERED: MAGNESIUM CITRATE SOLN 300 ML BTL PO ONE (21:30)
[2018-02-24] MEDS ORDERED: POVIDONE IODINE 5% (ANTISEPSIS KIT) 4 APPLICATIONS EACH NARE PRN (22:30)
[2018-02-24] MEDS ORDERED: LACTATED RINGER'S 1000 ML IV PRN (22:30)
[2018-02-24] MEDS ORDERED: METOPROLOL TARTRATE 25 MG TAB PO PRN (22:30)
[2018-02-24] MEDS ORDERED: CHLORHEXIDINE GLUCONATE 2 % 1 PACK (2 CLOTHS) TOPICAL PRN (22:30)
[2018-02-24] MEDS ORDERED: SODIUM CHLORID 0.9% 500 ML IV PRN (22:30)
[2018-02-25] MEDS: methylPREDNISolone SOD SUCC 125 MG/2 ML VIAL IV PUSH SCH ×5 (00:20→23:10)
[2018-02-25] MEDS: SODIUM CHLOR 0.9% 1000 ML INJ 1,000 ML IV SCH ×5 (00:20→22:42)
[2018-02-25] MEDS: PIPERACIL-TAZO 4.5 GM PREMIX 100 ML IV SCH ×5 (00:22→22:53)
[2018-02-25 01:00] VITALS: BP 170/86; PULSE 81; RESP 18; TEMP 98.1; O2SAT 98
[2018-02-25] MEDS: CHLORHEXIDINE GLUCONATE 2 % 1 PACK (2 CLOTHS)(taper/protocol) TOPICAL SCH (04:00)
[2018-02-25 05:30] VITALS: BP 147/95; PULSE 71; RESP 18; TEMP 98; O2SAT 98
[2018-02-25 07:55] VITALS: BP 169/87; PULSE 57; RESP 20; TEMP 98.2; O2SAT 98
[2018-02-25] MEDS: FERROUS SULFATE 325 MG (65 MG ELEMENTAL IRON) TAB PO SCH (09:00)
[2018-02-25] MEDS: POLYETHYLENE GLYCOL 17 GM PKG PO SCH (09:00)
[2018-02-25] MEDS: SODIUM CHLORIDE 0.9% FLUSH 10 ML FLUSH IV FLUSH SCH ×2 (09:00→22:41)
[2018-02-25] MEDS: PANTOPRAZOLE SOD 40 MG DELAYED RELEASE TAB PO SCH ×2 (09:00→22:41)
[2018-02-25] MEDS: DOCUSATE SODIUM 50 MG/SENNA 8.6 MG TAB PO SCH ×2 (09:00→22:41)
[2018-02-25] MEDS ORDERED: PROPOFOL 200 MG/20 ML AMP IV ONE (09:54)
[2018-02-25] MEDS ORDERED: LIDOCAINE HCL 1% PF 5 ML SYRINGE OTHER ONE (09:54)
[2018-02-25 10:59] LABS: AUTOMATED NEUTROPHIL # 5.7 TH/MM3 (1.8-7.7); BASOPHIL % 0.6 % (0.0-2.0); EOSINOPHIL % 0.1 % (0.0-4.0); HEMATOCRIT 32.7 % (35.0-46.0); HEMOGLOBIN 10.4 GM/DL (11.6-15.3); LYMPH % 8.5 % (9.0-44.0); LYMPHOCYTE # 0.6 TH/MM3 (1.0-4.8); MEAN CELL VOLUME 66.1 FL (80.0-100.0); MEAN CORPUSCULAR HGB CONC 31.7 % (32.0-36.0); MEAN PLATELET VOLUME 8.3 FL (7.0-11.0); MONO % 4.4 % (0.0-8.0); MONOCYTE # 0.3 TH/MM3 (0-0.9); NEUT % 86.4 % (16.0-70.0); PLATELET COUNT 298 TH/MM3 (150-450); RED BLOOD COUNT 4.95 MIL/MM3 (4.00-5.30); WHITE BLOOD COUNT 6.6 TH/MM3 (4.0-11.0)
[2018-02-25 11:09] LABS: ALKALINE PHOSPHATASE 148 U/L (45-117); ALT (GPT) 18 U/L (10-53); TOTAL BILIRUBIN ADULT 0.3 MG/DL (0.2-1.0)
[2018-02-25 11:13] LABS: ALBUMIN 1.4 GM/DL (3.4-5.0); AST (GOT) 30 U/L (15-37); BLOOD UREA NITROGEN 19 MG/DL (7-18); CALCIUM 8.2 MG/DL (8.5-10.1); CHLORIDE 107 MEQ/L (98-107); CREATININE 0.89 MG/DL (0.50-1.00); GLOMERULAR FILTRATION RATE 94 ML/MIN (>89); GLUCOSE,RANDOM 322 MG/DL (74-106); SODIUM (NA) 141 MEQ/L (136-145)
[2018-02-25 11:54] LABS: KERATOCYTES OCC (NORMAL); OVALOCYTES 1+ (NORMAL); TEARDROP RBCS 1+ (NORMAL)
--- NOTE | 2018-02-25 12:18 | HHI.FPPN ---
Subjective Remarks Patient seen and examined this afternoon. She states that she is feeling well. She is able to ambulate and move her arms above her head. Requesting a walker to go home with. Ready to go home. Eating and drinking well. No shortness of breath, no chest pain, no abdominal pain, no nausea/vomiting. EGD/ Colonoscopy went well this morning. (Georgiana Etienne MD R1) Objective Vitals Vital Signs Date Time Temp Pulse Resp B/P (MAP) Pulse Ox O2 Delivery O2 Flow Rate FiO2 02/25/18 07:55 98.2 57 20 169/87 (114) 98 02/25/18 05:30 98.0 71 18 147/95 (112) 98 02/25/18 01:00 98.1 81 18 170/86 (114) 98 02/24/18 21:47 Nasal Cannula 2.00 02/24/18 20:00 98.2 74 18 163/95 (117) 98 02/24/18 15:58 97.9 74 18 161/95 (117) 96 02/24/18 12:26 97.7 86 18 157/98 (117) 99 I/O 02/24/18 02/24/18 02/24/18 02/25/18 02/25/18 02/25/18 07:00 15:00 23:00 07:00 15:00 23:00 Intake Total 955 ml Balance 955 ml IV Total 955 ml # Voids 1 2 1 # Bowel Movements 1 11 (Georgiana Etienne MD R1) Result Diagram: 02/25/18 1008 02/25/18 1008 Objective Remarks GENERAL: NAD, lying in bed watching TV NEURO: Alert. Normal speech. maid housekeeper grossly intact. Motor grossly normal. SKIN: Warm and dry. No rashes or erythema. HEAD: Normocephalic. Atraumatic. EYES: EOMI. No scleral icterus. No injection or drainage. ENT: No nasal drainage. Moist mucous membranes. Few oral ulcers noted. NECK: Supple, trachea midline. No JVD or lymphadenopathy. CARDIOVASCULAR: Slightly tachycardic rate, regular rhythm, without murmurs, rubs , or gallops. Peripheral pulses 2+. Capillary refill < 2 seconds. RESPIRATORY: Improved inspiratory effort from admission. Faint end expiratory wheezing. Coarse breath sounds throughout, but improved. Equal breath sounds bilaterally. GASTROINTESTINAL: Abdomen soft, nontender, nondistended. No organomegaly or masses. No rebound tenderness. No guarding. MUSCULOSKELETAL: No lower extremity edema. Normal range of motion. BACK: Nontender without obvious deformity. (Georgiana Etienne MD R1) A/P Assessment and Plan 27 year old female with recent diagnosis of SLE admitted for sepsis due to pneumonia, suspect this could be related to severe lupus. Discharge Planning Anticipate discharge home once clinically stable, patient still requiring IV antibiotics and steroids. Infectious disease and gastroenterology still following. (Georgiana Etienne MD R1) Attending Attestation Patient seen and examined. Case reviewed and discussed with the resident team. Agree with plan of care as discussed with me and documented in the resident note. vastly improved since admission. her lupus pneumonitis is doing so well (Mili Hyde MD) Problem List: (1) SLE (systemic lupus erythematosus) ICD Codes: M32.9 - Systemic lupus erythematosus, unspecified Plan: Patient recently diagnosed with SLE this past Sunday 02/18 Hold home prednisone and NSAIDs. will give high dose steroids as lupus pneumonitis is high in the differential Continue Solumedrol 250 mg IV q6h, will send home on Prednisone 60mg po qD Discussed case with the patients outpatient charting clerk who agrees with current treatment plan, has faxed over prior lab workup Rediscussed pt with Dr Sher who requested labs and progress notes to be sent to his office through fax. [phone] (2) Sepsis ICD Codes: A41.9 - Sepsis, unspecified organism Status: Resolved Plan: Patient meeting sepsis criteria with pulse of 150, respiratory rate of 24 , WBC 14.0 on admission Lactic acid 1.1 Source presumed due to pneumonia Further plan as below her fevers could be related to lupus as she has been having these at home (3) Community acquired pneumonia ICD Codes: J18.9 - Pneumonia, unspecified organism Status: Acute Plan: Consolidative changes in the right lower lobe noted on CT pulmonary angiography s/p Rocephin 2gm IV x1 and azithromycin 500mg IV x1 in ED Discontinued Rocephin 2gm IV q24h Continue azithromycin 250 mg po daily NS at 150 cc/hr Urinary pneumococcal and Legionella antigens presumptive negatives Obtain sputum culture once sputum is expectorated Blood culture no growth after one day Supportive therapy with supplemental oxygen as needed to maintain O2 sats > 92% Baobs q4h while awake, q2h prn Infectious disease consulted, appreciate recommendations Continue Zosyn 4.5 gm IV q6h (started 02/20), will discontinue for discharge home today Continue Azithromycin (started 02/20), will discontinue for discharge home today Discontinued Vancomycin (4) Chest pain ICD Codes: R07.9 - Chest pain, unspecified Status: Acute Plan: CTPA as above, in findings per radiology report at this time it is noted patient having posterior central pulmonary emboli which was not transferred to the conclusion findings, radiology called regarding this and have reviewed the films and state the patient does not have pulmonary emboli, report to be amended EKG sinus tachycardia, no significant ST changes Consider on differential pericarditis given her SLE although she is young, costochondritis, pleuritis, or chest pain due to her pneumonia Chest pain improving, continue to monitor Morphine 4 mg IV q4h prn pain 6-10, morphine 2 mg IV q4h prn breakthrough pain (5) Stool guaiac positive ICD Codes: R19.5 - Other fecal abnormalities Status: Acute Plan: Stool is guaiac positive per ED report and documentation Hgb 8.0, stable from prior visits, stable this AM Patient endorsing bright red blood on toilet paper when wiping at home Does have history of moderate NSAID, motrin and diclofenac Continue protonix 40 mg po bid Blood type O+ Will transfuse pRBCs if Hgb < 7.0 s/p 2 units pRBCs transfused on 02/20 GI consulted, appreciate recommendations -EGD and colonoscopy today revealed internal/external hemorrhoids and a hiatal hernia -Possible candidiasis noted at distal esophagus on EGD -Due to this finding primary team will send home on Diflucan 200mg qD for 7 days (6) Anemia ICD Codes: D64.9 - Anemia, unspecified Status: Chronic Plan: Plan as above Continue home ferrous sulfate (7) Hypertension ICD Codes: I10 - Essential (primary) hypertension Status: Chronic Plan: Monitor vitals q4h Increase amlodipine to 10mg po qD (8) Thrombocytosis ICD Codes: D47.3 - Essential (hemorrhagic) thrombocythemia Status: Resolved Plan: Platelet count elevated to 787,000 on admission, downtrended to normal Consider on differential reactive thrombocytosis, due to SLE, or due to acute blood loss, chronic iron and b12 deficiency, or infection Continue to monitor suspect this is reactive as she is so inflamed at this point (9) Nutrition, metabolism, and development symptoms ICD Codes: R63.8 - Other symptoms and signs concerning food and fluid intake Status: Acute Plan: Fluids: NS at 150 cc/hr Electrolytes: WNL, continue to monitor Nutrition: regular diet GI ppx: Protonix 40 mg po bid DVT ppx: b/l SCDs, holding chemical anticoagulation given her suspected GI bleed Anxiety: xanax 0.25 mg po tid as needed (Georgiana Etienne MD R1) Problem Qualifiers (1) SLE (systemic lupus erythematosus): Qualified Codes: M32.13 - Lung involvement in systemic lupus erythematosus (2) Sepsis: Qualified Codes: A41.9 - Sepsis, unspecified organism (3) Community acquired pneumonia: Qualified Codes: J18.9 - Pneumonia, unspecified organism (4) Chest pain: Qualified Codes: R07.9 - Chest pain, unspecified (5) Anemia: Qualified Codes: D64.9 - Anemia, unspecified (6) Hypertension: Qualified Codes: I10 - Essential (primary) hypertension Georgiana Etienne MD R1 Feb 25, 2018 12:18 Mili Hyde MD Feb 26, 2018 12:17
--- NOTE | 2018-02-25 12:35 | GIPROC ---
[facility] [address] [facility]. [facility], [address] EGD PROCEDURE REPORT EXAM DATE: 02/25/2018 PATIENT NAME: Renetta Chavis MR #: [id number] BIRTHDATE: 1990 ATTENDING: Rebecca Morris MD ORDER #: [id number] ORCHESTRA DIRECTOR: Wilberto Nix and Jessica Cheema STATUS: inpatient INDICATIONS: The patient is a 27 yr old female here for an EGD due to anemia PROCEDURE PERFORMED: EGD w/ biopsy MEDICATIONS: None and Per Anesthesia. TOPICAL ANESTHETIC: none CONSENT: The patient understands the risks and benefits of the procedure and understands that these risks include, but are not limited to: sedation, allergic reaction, infection, perforation and/or bleeding. Alternative means of evaluation and treatment include, among others: physical exam, x-rays, and/or surgical intervention. The patient elects to proceed with this endoscopic procedure. medical equipment was checked for proper function. Hand hygiene and appropriate measures for infection prevention was taken. After the risks, benefits and alternatives of the procedure were thoroughly explained, Informed consent was verified, confirmed and timeout was successfully executed by the treatment team. The patient was anesthetized with topical anesthesia and the EC-[id number] (Pedi C) endoscope was introduced through the mouth and advanced to the second portion of the duodenum. Retroflexed views revealed a hiatal hernia The gastroscope was then slowly withdrawn and removed. Duodenum normal -biopsy gastritis antrum-biopsy esophagitis disyal-white deposits -possible branden. ADVERSE EVENTS: There were no complications. IMPRESSIONS: 1. Duodenum normal -biopsy gastritis antrum-biopsy esophagitis disyal-white deposits -possible branden 2. Retroflexed views revealed a hiatal hernia RECOMMENDATIONS: 1. Await biopsy results. Biopsy results will not be ready for 7-10 days. If you don't hear from us in two weeks, call our office for biopsy results. 2. Anti-reflux regimen 3. Continue PPI 4. Avoid NSAIDS PATIENT CONDITION: stable DISPOSITION: Inpatient REPEAT EXAM: EGD pending biopsy results Rebecca Morris MD eSigned: Rebecca Morris MD 02/25/2018 12:35 PM cc:
--- NOTE | 2018-02-25 12:37 | GIPROC ---
[facility] [address] [facility]. [facility], [address] COLONOSCOPY PROCEDURE REPORT EXAM DATE: 02/25/2018 PATIENT NAME: Renetta Chavis MR #: [id number] BIRTHDATE: 1990 ENDOSCOPIST: Rebecca Morris MD ORDER #: [id number] CUSTOMER EXPERIENCE ASSOCIATE: Wilberto Nix and Jessica Cheema STATUS: inpatient INDICATIONS: The patient is a 27 yr old female here for a colonoscopy due to anemia PROCEDURE PERFORMED: Colonoscopy, diagnostic MEDICATIONS: None and Per Anesthesia. PREP QUALITY: good PREP TYPE:Other: ESTIMATED BLOOD LOSS: None CONSENT: The patient understands the risks and benefits of the procedure and understands that these risks include, but are not limited to: sedation, allergic reaction, infection, perforation and/or bleeding. Alternative means of evaluation and treatment include, among others: physical exam, x-rays, and/or surgical intervention. The patient elects to proceed with this endoscopic procedure. medical equipment was checked for proper function. Hand hygiene and appropriate measures for infection prevention was taken. After the risks, benefits and alternatives of the procedure were thoroughly explained, Informed consent was verified, confirmed and timeout was successfully executed by the treatment team. A digital exam revealed external hemorrhoids The Pentax [id number] endoscope was introduced through the anus and advanced to the cecum, which was identified by both the appendix and ileocecal valve. The instrument was then slowly withdrawn as the colon was fully examined. COLON FINDINGS: The colonic mucosa appeared normal. Retroflexed views revealed internal hemorrhoids and Retroflexed views revealed small internal hemorrhoids The scope was then completely withdrawn from the patient and the procedure terminated. PROCEDURE WITHDRAWAL TIME:6minutes ADVERSE EVENTS: There were no complications. IMPRESSIONS: 1. The colonic mucosa appeared normal 2. Retroflexed views revealed internal hemorrhoids 3. Retroflexed views revealed small internal hemorrhoids 4. Revealed external hemorrhoids RECOMMENDATIONS: 1. Benefiber 2 tsp daily 2. Probiotics from any C or health food store 3. Yearly rectal exams RECALL: Return 10 years Colonoscopy Rebecca Morris MD eSigned: Rebecca Morris MD 02/25/2018 12:36 PM cc:
[2018-02-25] MEDS: AZITHROMYCIN 250 MG TAB PO SCH (14:00)
--- NOTE | 2018-02-25 14:45 | HHI.FF ---
Face to Face Verification Diagnosis: (1) SLE (systemic lupus erythematosus) (2) Hypoxia (3) Community acquired pneumonia Physical Therapy Order: Evaluate and Treat, Improve ambulation, Strength and gait training Home Health Nursing Order: Medical education Signs/symptoms of disease process Medication education-adverse effect I have seen patient Renetta Chavis on 02/25/18. My clinical findings support the need for the requested home health care services because: Ltd mobility - disease progression Deconditioned w/ increased weakness Limited ability to care for self High risk of falls I certify that my clinical findings support that this patient is homebound because: Unsteady gait/balance Georgiana Etienne MD R1 Feb 25, 2018 14:45
[2018-02-25] MEDS ORDERED: PRED20 PO (14:52)
[2018-02-25] MEDS ORDERED: AMLO10 PO (14:52)
--- NOTE | 2018-02-25 14:54 | HHI.DCPOC ---
Discharge Care Plan Diagnosis: (1) Anemia (2) Hypoxia (3) Sepsis (4) Hypertension (5) Thrombocytosis (6) SLE (systemic lupus erythematosus) Goals to Promote Your Health * To prevent worsening of your condition and complications * To maintain your health at the optimal level Directions to Meet Your Goals Take your medications as prescribed Follow your dietary instruction Follow activity as directed Keep your appointments as scheduled Take your immunizations and boosters as scheduled If your symptoms worsen call your PCP, if no PCP go to Urgent Care Center or Emergency Room Smoking is Dangerous to Your Health. Avoid second hand smoke Call the 24-hour hour crisis hotline for domestic abuse at Maycol Vu MD, R3 Feb 25, 2018 14:54
[2018-02-25] MEDS ORDERED: ROLLER WALKER1 MI1 (15:03)
[2018-02-25 15:07] VITALS: O2SAT 99
[2018-02-25] MEDS ORDERED: DIFL200T PO (15:10)
[2018-02-25] MEDS ORDERED: FLUCONAZOLE 200 MG TAB PO SCH (16:00)
[2018-02-25] MEDS: POTASSIUM CHLORIDE 10 MEQ CONTROLLED RELEASE TAB PO SCH ×2 (16:05→17:32)
--- NOTE | 2018-02-25 16:15 | HHI.DS ---
Discharge Summary Admission Date Feb 20, 2018 at 14:06 Admitting Diagnosis Pneumonia, sepsis, hypoxia, guaiac positive stool (1) SLE (systemic lupus erythematosus) Plan: Patient recently diagnosed with SLE this past Sunday 02/18 Hold home prednisone and NSAIDs. will give high dose steroids as lupus pneumonitis is high in the differential Continue Solumedrol 250 mg IV q6h, will send home on Prednisone 60mg po qD Discussed case with the patients outpatient endocrinology specialist who agrees with current treatment plan, has faxed over prior lab workup Rediscussed pt with Dr Sher who requested labs and progress notes to be sent to his office through fax. [phone] ICD Codes: M32.9 - Systemic lupus erythematosus, unspecified (2) Sepsis Plan: Patient meeting sepsis criteria with pulse of 150, respiratory rate of 24 , WBC 14.0 on admission Lactic acid 1.1 Source presumed due to pneumonia Further plan as below her fevers could be related to lupus as she has been having these at home ICD Codes: A41.9 - Sepsis, unspecified organism Status: Resolved (3) Community acquired pneumonia Plan: Consolidative changes in the right lower lobe noted on CT pulmonary angiography s/p Rocephin 2gm IV x1 and azithromycin 500mg IV x1 in ED Discontinued Rocephin 2gm IV q24h Continue azithromycin 250 mg po daily NS at 150 cc/hr Urinary pneumococcal and Legionella antigens presumptive negatives Obtain sputum culture once sputum is expectorated Blood culture no growth after one day Supportive therapy with supplemental oxygen as needed to maintain O2 sats > 92% Duonebs q4h while awake, q2h prn Infectious disease consulted, appreciate recommendations Continue Zosyn 4.5 gm IV q6h (started 02/20), will discontinue for discharge home today Continue Azithromycin (started 02/20), will discontinue for discharge home today Discontinued Vancomycin ICD Codes: J18.9 - Pneumonia, unspecified organism Status: Acute (4) Chest pain Plan: CTPA as above, in findings per radiology report at this time it is noted patient having posterior central pulmonary emboli which was not transferred to the conclusion findings, radiology called regarding this and have reviewed the films and state the patient does not have pulmonary emboli, report to be amended EKG sinus tachycardia, no significant ST changes Consider on differential pericarditis given her SLE although she is young, costochondritis, pleuritis, or chest pain due to her pneumonia Chest pain improving, continue to monitor Morphine 4 mg IV q4h prn pain 6-10, morphine 2 mg IV q4h prn breakthrough pain ICD Codes: R07.9 - Chest pain, unspecified Status: Acute (5) Stool guaiac positive Plan: Stool is guaiac positive per ED report and documentation Hgb 8.0, stable from prior visits, stable this AM Patient endorsing bright red blood on toilet paper when wiping at home Does have history of moderate NSAID, motrin and diclofenac Continue protonix 40 mg po bid Blood type O+ Will transfuse pRBCs if Hgb < 7.0 s/p 2 units pRBCs transfused on 02/20 GI consulted, appreciate recommendations -EGD and colonoscopy today revealed internal/external hemorrhoids and a hiatal hernia -Possible candidiasis noted at distal esophagus on EGD -Due to this finding primary team will send home on Diflucan 200mg qD for 7 days ICD Codes: R19.5 - Other fecal abnormalities Status: Acute (6) Anemia Plan: Plan as above Continue home ferrous sulfate ICD Codes: D64.9 - Anemia, unspecified Status: Chronic (7) Hypertension Plan: Monitor vitals q4h Increase amlodipine to 10mg po qD ICD Codes: I10 - Essential (primary) hypertension Status: Chronic (8) Thrombocytosis Plan: Platelet count elevated to 787,000 on admission, downtrended to normal Consider on differential reactive thrombocytosis, due to SLE, or due to acute blood loss, chronic iron and b12 deficiency, or infection Continue to monitor suspect this is reactive as she is so inflamed at this point ICD Codes: D47.3 - Essential (hemorrhagic) thrombocythemia Status: Resolved (9) Nutrition, metabolism, and development symptoms Plan: Fluids: NS at 150 cc/hr Electrolytes: WNL, continue to monitor Nutrition: regular diet GI ppx: Protonix 40 mg po bid DVT ppx: b/l SCDs, holding chemical anticoagulation given her suspected GI bleed Anxiety: xanax 0.25 mg po tid as needed ICD Codes: R63.8 - Other symptoms and signs concerning food and fluid intake Status: Acute Brief History Ms Chavis is a 27 year old woman evaluated in the ED due to chest pain and SOB of one day duration. This past Sunday the patient's mother states pt had an appointment with her endocrinology specialist and was diagnosed with SLE and patient was prescribed prednisone and two other SLE medications which have not been started due to awaiting prior authorizations. Mother states the patient had previously been taking ibuprofen twice daily for several weeks up to 600 mg twice daily for relief of arthralgias and myalgias. Mother states she stopped taking ibuprofen about two weeks ago after reporting she had a little blood in her stools. The patient reports bright red blood on the toilet paper x1 episode when wiping. She denies melena or grossly bloody stools. Patient denies abdominal pain. In regards to her chest pain, Mother states yesterday the patient reported only sitting up was helping her chest pain. Mother states the patient reported this chest pain was centrally located and stabbing in nature. Mother reports the patient was initially tested by her PCP about one year ago for SLE and was told she likely had SLE and was referred to rheumatology. The mother states they were initially told the diagnosis of SLE was in question and were considering a diagnosis of RA, however were not told of the diagnosis until this past Sunday. Patient endorses subjective fevers and night sweats over the past 1-2 days. Endorsing cough, productive of clear phlegm and sometimes yellow. No sick contacts at home. No recent travel. Lives at home with mother, 2 siblings, 5 children, and dog. Overall, she has been declining for the past year with multiple sequelae of lupus. she has had serious joint pain to the point where her mother has to help her stand up and she cannot walk. she has had chest pains and breathing problems for months. she was here a month or so ago for chest pain. her ESR is greater than 140 now and her CRP was very high. she has been having fevers at home on and off for some time as well. she has multiple diagnostic criteria for lupus including mouth ulcers, joint pains, skin problems, eye and neurologic problems as well as proteinuria seen by her Sheet Metal Contractor. CBC/BMP: 02/25/18 1008 02/25/18 1008 Significant Findings Laboratory Tests Test 02/23/18 03:45 02/24/18 06:50 02/25/18 10:08 02/25/18 13:53 White Blood Count 11.3 TH/MM3 (4.0-11.0) Hemoglobin 10.0 GM/DL (11.6-15.3) 9.3 GM/DL (11.6-15.3) 10.4 GM/DL (11.6-15.3) Hematocrit 32.3 % (35.0-46.0) 29.7 % (35.0-46.0) 32.7 % (35.0-46.0) Mean Corpuscular Volume 66.3 FL (80.0-100.0) 66.1 FL (80.0-100.0) 66.1 FL (80.0-100.0) Mean Corpuscular Hemoglobin 20.6 PG (27.0-34.0) 20.8 PG (27.0-34.0) 21.0 PG (27.0-34.0) Mean Corpuscular Hemoglobin Concent 31.0 % (32.0-36.0) 31.4 % (32.0-36.0) 31.7 % (32.0-36.0) Red Cell Distribution Width 29.7 % (11.6-17.2) 29.2 % (11.6-17.2) 29.0 % (11.6-17.2) Neutrophils (%) (Auto) 90.6 % (16.0-70.0) 85.6 % (16.0-70.0) 86.4 % (16.0-70.0) Lymphocytes (%) (Auto) 6.0 % (9.0-44.0) 8.5 % (9.0-44.0) Neutrophils # (Auto) 10.2 TH/MM3 (1.8-7.7) Lymphocytes # (Auto) 0.7 TH/MM3 (1.0-4.8) 0.6 TH/MM3 (1.0-4.8) 0.6 TH/MM3 (1.0-4.8) Platelet Estimate HIGH (NORMAL) Platelet Morphology Comment ENLARGED (NORMAL) Tear Drop Cells 1+ (NORMAL) 1+ (NORMAL) 1+ (NORMAL) Ovalocytes 1+ (NORMAL) 1+ (NORMAL) 1+ (NORMAL) Acanthocytes OCC (NORMAL) Blood Urea Nitrogen 20 MG/DL (7-18) 21 MG/DL (7-18) 19 MG/DL (7-18) Creatinine 1.11 MG/DL (0.50-1.00) Random Glucose 269 MG/DL (74-106) 279 MG/DL (74-106) 322 MG/DL (74-106) Albumin 1.4 GM/DL (3.4-5.0) 1.4 GM/DL (3.4-5.0) 1.4 GM/DL (3.4-5.0) Calcium Level 8.3 MG/DL (8.5-10.1) 8.1 MG/DL (8.5-10.1) 8.2 MG/DL (8.5-10.1) Alkaline Phosphatase 171 U/L (45-117) 150 U/L (45-117) 148 U/L (45-117) Chloride Level 110 MEQ/L (98-107) 111 MEQ/L (98-107) Estimat Glomerular Filtration Rate 72 ML/MIN (>89) Neutrophils % (Manual) 88 % (16-70) Lymphocytes % 5 % (9-44) Myelocytes 1 % (0-0) Nucleated Red Blood Cells 3 /100 WBC (0-0) Potassium Level 3.4 MEQ/L (3.5-5.1) 3.0 MEQ/L (3.5-5.1) Keratocytes OCC (NORMAL) Gamma Glutamyl Transpeptidase 291 U/L (5-55) PE at Discharge GENERAL: NAD, lying in bed watching TV NEURO: Alert. Normal speech. private branch exchange installer grossly intact. Motor grossly normal. SKIN: Warm and dry. No rashes or erythema. HEAD: Normocephalic. Atraumatic. EYES: EOMI. No scleral icterus. No injection or drainage. ENT: No nasal drainage. Moist mucous membranes. Few oral ulcers noted. NECK: Supple, trachea midline. No JVD or lymphadenopathy. CARDIOVASCULAR: Slightly tachycardic rate, regular rhythm, without murmurs, rubs , or gallops. Peripheral pulses 2+. Capillary refill < 2 seconds. RESPIRATORY: Improved inspiratory effort from admission. Faint end expiratory wheezing. Coarse breath sounds throughout, but improved. Equal breath sounds bilaterally. GASTROINTESTINAL: Abdomen soft, nontender, nondistended. No organomegaly or masses. No rebound tenderness. No guarding. MUSCULOSKELETAL: No lower extremity edema. Normal range of motion. BACK: Nontender without obvious deformity. Pt Condition on Discharge: Stable Discharge Disposition: Discharge Home Discharge Instructions DIET: Follow Instructions for: As Tolerated, No Restrictions Activities you can perform: Regular-No Restrictions Georgiana Etienne MD R1 Feb 25, 2018 16:15
[2018-02-25] MEDS: NYSTATIN SUSP 500,000 U/5 ML CUP SWISH-SWAL SCH ×2 (17:31→22:41)
[2018-02-25 19:50] VITALS: O2SAT 97
[2018-02-25 20:00] VITALS: BP 141/81; PULSE 71; RESP 18; TEMP 97.7; O2SAT 92
[2018-02-25] MEDS: MORPHINE SULFATE 2 MG/ML SYRINGE IV PUSH PRN (23:55)
[2018-02-26] VITALS: PULSE 72; RESP 18; TEMP 98.9; O2SAT 92
[2018-02-26] MEDS ORDERED: DICYCLOMINE HCL 10 MG CAP PO ONE (00:15)
[2018-02-26 00:45] VITALS: BP 162/96; PULSE 61; RESP 19; TEMP 97.1; O2SAT 95
[2018-02-26 04:00] VITALS: BP 140/82; PULSE 100; RESP 16; TEMP 98.4; O2SAT 100
[2018-02-26] MEDS: PIPERACIL-TAZO 4.5 GM PREMIX 100 ML IV SCH (04:56)
[2018-02-26] MEDS: SODIUM CHLOR 0.9% 1000 ML INJ 1,000 ML IV SCH (04:56)
[2018-02-26] MEDS: methylPREDNISolone SOD SUCC 125 MG/2 ML VIAL IV PUSH SCH (05:06)
--- NOTE | 2018-02-26 09:22 | HHI.FPPN ---
Subjective Remarks No acute events overnight. Afebrile, vitals stable. Patient states she is feeling well this morning. Denies dyspnea, chest pain, fevers or chills, abdominal pain. She states her diarrhea has improved. She otherwise does not have any specific complaints or concerns. (Jamison Fritz MD R2) Objective Vitals Vital Signs Date Time Temp Pulse Resp B/P (MAP) Pulse Ox O2 Delivery O2 Flow Rate FiO2 02/26/18 04:27 95 Room Air 02/26/18 04:00 98.4 100 16 140/82 (101) 100 02/26/18 00:45 97.1 61 19 162/96 (118) 95 02/26/18 00:05 18 02/26/18 00:00 98.9 72 18 92 02/25/18 20:00 97.7 71 18 141/81 (101) 92 02/25/18 19:50 97 02/25/18 19:44 97 Room Air 02/25/18 15:07 99 Nasal Cannula 2.00 02/25/18 12:34 97.0 77 20 128/83 (98) 99 I/O 02/25/18 02/25/18 02/25/18 02/26/18 02/26/18 02/26/18 07:00 15:00 23:00 07:00 15:00 23:00 Intake Total 955 ml 100 ml 2000 ml 900 ml Balance 955 ml 100 ml 2000 ml 900 ml IV Total 955 ml 2000 ml 900 ml Other 100 ml # Voids 1 1 2 1 # Bowel Movements 11 2 2 (Jamison Fritz MD R2) Result Diagram: 02/25/18 1008 02/25/18 1008 Objective Remarks GENERAL: NAD, lying in bed NEURO: Alert. Normal speech. elevator starter grossly intact. Motor grossly normal. SKIN: Warm and dry. No rashes or erythema. HEAD: Normocephalic. Atraumatic. EYES: EOMI. No scleral icterus. No injection or drainage. ENT: No nasal drainage. Moist mucous membranes. Few oral ulcers noted. NECK: Supple, trachea midline. No JVD or lymphadenopathy. CARDIOVASCULAR: RRR, without murmurs, rubs, or gallops. Peripheral pulses 2+. RESPIRATORY: Improved inspiratory effort from admission. Faint end expiratory wheezing. Equal breath sounds bilaterally. GASTROINTESTINAL: Abdomen soft, nontender, nondistended. No organomegaly or masses. No rebound tenderness. No guarding. MUSCULOSKELETAL: No lower extremity edema. Normal range of motion. BACK: Nontender without obvious deformity. (Jamison Fritz MD R2) A/P Assessment and Plan 27 year old female with recent diagnosis of SLE admitted for sepsis due to pneumonia, suspect this could be related to severe lupus. Discharge Planning Anticipate discharge home today (Jamison Fritz MD R2) Attending Attestation Patient seen and examined. Case reviewed and discussed with the resident team. Agree with plan of care as discussed with me and documented in the resident note. she blames her diarrhea on her colon prep for colonoscopy and it is gone today. C diff negative (Mili Hyde MD) Problem List: (1) SLE (systemic lupus erythematosus) ICD Codes: M32.9 - Systemic lupus erythematosus, unspecified Plan: Patient recently diagnosed with SLE on 02/18 Hold home prednisone and NSAIDs. will give high dose steroids as lupus pneumonitis is high in the differential Continue Solumedrol 250 mg IV q6h, will send home on Prednisone 60mg po qD Discussed case with the patients outpatient bead supervisor who agrees with current treatment plan, has faxed over prior lab workup Rediscussed pt with Dr Sher who requested labs and progress notes to be sent to his office through fax. [phone] (2) Sepsis ICD Codes: A41.9 - Sepsis, unspecified organism Status: Resolved Plan: Patient meeting sepsis criteria on admission with pulse of 150, respiratory rate of 24, WBC 14.0 on admission Lactic acid 1.1 Source presumed due to pneumonia Further plan as below her fevers could be related to lupus as she has been having these at home (3) Community acquired pneumonia ICD Codes: J18.9 - Pneumonia, unspecified organism Status: Acute Plan: Consolidative changes in the right lower lobe noted on CT pulmonary angiography s/p Rocephin 2gm IV x1 and azithromycin 500mg IV x1 in ED Discontinued Rocephin 2gm IV q24h Azithromycin 250 mg po daily (stop 02/25) NS at 150 cc/hr Urinary pneumococcal and Legionella antigens presumptive negatives Blood culture no growth after 5 days Supportive therapy with supplemental oxygen as needed to maintain O2 sats > 92% Duonebs q4h while awake, q2h prn Infectious disease consulted, appreciate recommendations Continue Zosyn 4.5 gm IV q6h (started 02/20), will discontinue for discharge home today Continue Azithromycin (started 02/20), will discontinue for discharge home today Discontinued Vancomycin (4) Chest pain ICD Codes: R07.9 - Chest pain, unspecified Status: Acute Plan: CTPA as above, in findings per radiology report at this time it is noted patient having posterior central pulmonary emboli which was not transferred to the conclusion findings, radiology called regarding this and have reviewed the films and state the patient does not have pulmonary emboli, report to be amended EKG sinus tachycardia, no significant ST changes Consider on differential pericarditis given her SLE although she is young, costochondritis, pleuritis, or chest pain due to her pneumonia Chest pain improving, continue to monitor Morphine 4 mg IV q4h prn pain 6-10, morphine 2 mg IV q4h prn breakthrough pain (5) Stool guaiac positive ICD Codes: R19.5 - Other fecal abnormalities Status: Acute Plan: Stool is guaiac positive per ED report and documentation Hgb 8.0, stable from prior visits, stable this AM Patient endorsing bright red blood on toilet paper when wiping at home Does have history of moderate NSAID, motrin and diclofenac Continue protonix 40 mg po bid Blood type O+ Will transfuse pRBCs if Hgb < 7.0 s/p 2 units pRBCs transfused on 02/20 GI consulted, appreciate recommendations -EGD and colonoscopy today revealed internal/external hemorrhoids and a hiatal hernia -Possible candidiasis noted at distal esophagus on EGD -Due to this finding primary team will send home on Diflucan 200mg qD for 7 days (6) Anemia ICD Codes: D64.9 - Anemia, unspecified Status: Chronic Plan: Plan as above Continue home ferrous sulfate (7) Hypertension ICD Codes: I10 - Essential (primary) hypertension Status: Chronic Plan: Monitor vitals q4h Increase amlodipine to 10mg po qD (8) Thrombocytosis ICD Codes: D47.3 - Essential (hemorrhagic) thrombocythemia Status: Resolved Plan: Platelet count elevated to 787,000 on admission, downtrended to normal Consider on differential reactive thrombocytosis, due to SLE, or due to acute blood loss, chronic iron and b12 deficiency, or infection Continue to monitor suspect this is reactive as she is so inflamed at this point (9) Nutrition, metabolism, and development symptoms ICD Codes: R63.8 - Other symptoms and signs concerning food and fluid intake Status: Acute Plan: Fluids: NS at 150 cc/hr Electrolytes: WNL, continue to monitor Nutrition: regular diet GI ppx: Protonix 40 mg po bid DVT ppx: b/l SCDs, holding chemical anticoagulation given her suspected GI bleed Anxiety: xanax 0.25 mg po tid as needed (Jamison Fritz MD R2) Problem Qualifiers (1) SLE (systemic lupus erythematosus): Qualified Codes: M32.13 - Lung involvement in systemic lupus erythematosus (2) Sepsis: Qualified Codes: A41.9 - Sepsis, unspecified organism (3) Community acquired pneumonia: Qualified Codes: J18.9 - Pneumonia, unspecified organism (4) Chest pain: Qualified Codes: R07.9 - Chest pain, unspecified (5) Anemia: Qualified Codes: D64.9 - Anemia, unspecified (6) Hypertension: Qualified Codes: I10 - Essential (primary) hypertension Jamison Fritz MD R2 Feb 26, 2018 09:22 Mili Hyde MD Feb 26, 2018 12:19
--- NOTE | 2018-02-26 09:42 | HHI.DS ---
Discharge Summary Admission Date Feb 20, 2018 at 14:06 Discharge Date: Feb 26, 2018 Admitting Diagnosis Pneumonia, sepsis, hypoxia, guaiac positive stool (1) SLE (systemic lupus erythematosus) Diagnosis: Principal Plan: Patient recently diagnosed with SLE on 02/18 Hold home prednisone and NSAIDs. will give high dose steroids as lupus pneumonitis is high in the differential Continue Solumedrol 250 mg IV q6h, will send home on Prednisone 60mg po qD Discussed case with the patients outpatient automatic nailing machine feeder who agrees with current treatment plan, has faxed over prior lab workup Rediscussed pt with Dr Sher who requested labs and progress notes to be sent to his office through fax. [phone] ICD Codes: M32.9 - Systemic lupus erythematosus, unspecified (2) Sepsis Diagnosis: Principal Plan: Patient meeting sepsis criteria on admission with pulse of 150, respiratory rate of 24, WBC 14.0 on admission Lactic acid 1.1 Source presumed due to pneumonia Further plan as below her fevers could be related to lupus as she has been having these at home ICD Codes: A41.9 - Sepsis, unspecified organism Status: Resolved (3) Community acquired pneumonia Diagnosis: Principal Plan: Consolidative changes in the right lower lobe noted on CT pulmonary angiography s/p Rocephin 2gm IV x1 and azithromycin 500mg IV x1 in ED Discontinued Rocephin 2gm IV q24h Azithromycin 250 mg po daily (stop 02/25) NS at 150 cc/hr Urinary pneumococcal and Legionella antigens presumptive negatives Blood culture no growth after 5 days Supportive therapy with supplemental oxygen as needed to maintain O2 sats > 92% Duonebs q4h while awake, q2h prn Infectious disease consulted, appreciate recommendations Continue Zosyn 4.5 gm IV q6h (started 02/20), will discontinue for discharge home today Continue Azithromycin (started 02/20), will discontinue for discharge home today Discontinued Vancomycin ICD Codes: J18.9 - Pneumonia, unspecified organism Status: Acute (4) Chest pain Diagnosis: Principal Plan: CTPA as above, in findings per radiology report at this time it is noted patient having posterior central pulmonary emboli which was not transferred to the conclusion findings, radiology called regarding this and have reviewed the films and state the patient does not have pulmonary emboli, report to be amended EKG sinus tachycardia, no significant ST changes Consider on differential pericarditis given her SLE although she is young, costochondritis, pleuritis, or chest pain due to her pneumonia Chest pain improving, continue to monitor Morphine 4 mg IV q4h prn pain 6-10, morphine 2 mg IV q4h prn breakthrough pain ICD Codes: R07.9 - Chest pain, unspecified Status: Acute (5) Stool guaiac positive Diagnosis: Principal Plan: Stool is guaiac positive per ED report and documentation Hgb 8.0, stable from prior visits, stable this AM Patient endorsing bright red blood on toilet paper when wiping at home Does have history of moderate NSAID, motrin and diclofenac Continue protonix 40 mg po bid Blood type O+ Will transfuse pRBCs if Hgb < 7.0 s/p 2 units pRBCs transfused on 02/20 GI consulted, appreciate recommendations -EGD and colonoscopy today revealed internal/external hemorrhoids and a hiatal hernia -Possible candidiasis noted at distal esophagus on EGD -Due to this finding primary team will send home on Diflucan 200mg qD for 7 days ICD Codes: R19.5 - Other fecal abnormalities Status: Acute (6) Anemia Diagnosis: Principal Plan: Plan as above Continue home ferrous sulfate ICD Codes: D64.9 - Anemia, unspecified Status: Chronic (7) Hypertension Diagnosis: Secondary Plan: Monitor vitals q4h Increase amlodipine to 10mg po qD ICD Codes: I10 - Essential (primary) hypertension Status: Chronic (8) Thrombocytosis Diagnosis: Secondary Plan: Platelet count elevated to 787,000 on admission, downtrended to normal Consider on differential reactive thrombocytosis, due to SLE, or due to acute blood loss, chronic iron and b12 deficiency, or infection Continue to monitor suspect this is reactive as she is so inflamed at this point ICD Codes: D47.3 - Essential (hemorrhagic) thrombocythemia Status: Resolved (9) Nutrition, metabolism, and development symptoms Diagnosis: Secondary Plan: Fluids: NS at 150 cc/hr Electrolytes: WNL, continue to monitor Nutrition: regular diet GI ppx: Protonix 40 mg po bid DVT ppx: b/l SCDs, holding chemical anticoagulation given her suspected GI bleed Anxiety: xanax 0.25 mg po tid as needed ICD Codes: R63.8 - Other symptoms and signs concerning food and fluid intake Status: Acute Consultants Infectious disease, gastroenterology Brief History Ms Chavis is a 27 year old woman evaluated in the ED due to chest pain and SOB of one day duration. This past Sunday the patient's mother states pt had an appointment with her automatic nailing machine feeder and was diagnosed with SLE and patient was prescribed prednisone and two other SLE medications which have not been started due to awaiting prior authorizations. Mother states the patient had previously been taking ibuprofen twice daily for several weeks up to 600 mg twice daily for relief of arthralgias and myalgias. Mother states she stopped taking ibuprofen about two weeks ago after reporting she had a little blood in her stools. The patient reports bright red blood on the toilet paper x1 episode when wiping. She denies melena or grossly bloody stools. Patient denies abdominal pain. In regards to her chest pain, Mother states yesterday the patient reported only sitting up was helping her chest pain. Mother states the patient reported this chest pain was centrally located and stabbing in nature. Mother reports the patient was initially tested by her PCP about one year ago for SLE and was told she likely had SLE and was referred to rheumatology. The mother states they were initially told the diagnosis of SLE was in question and were considering a diagnosis of RA, however were not told of the diagnosis until this past Sunday. Patient endorses subjective fevers and night sweats over the past 1-2 days. Endorsing cough, productive of clear phlegm and sometimes yellow. No sick contacts at home. No recent travel. Lives at home with mother, 2 siblings, 5 children, and dog. Overall, she has been declining for the past year with multiple sequelae of lupus. she has had serious joint pain to the point where her mother has to help her stand up and she cannot walk. she has had chest pains and breathing problems for months. she was here a month or so ago for chest pain. her ESR is greater than 140 now and her CRP was very high. she has been having fevers at home on and off for some time as well. she has multiple diagnostic criteria for lupus including mouth ulcers, joint pains, skin problems, eye and neurologic problems as well as proteinuria seen by her Director Report. CBC/BMP: 02/25/18 1008 02/25/18 1008 Significant Findings Laboratory Tests Test 02/24/18 06:50 02/25/18 10:08 02/25/18 13:53 02/26/18 05:00 Hemoglobin 9.3 GM/DL (11.6-15.3) 10.4 GM/DL (11.6-15.3) Hematocrit 29.7 % (35.0-46.0) 32.7 % (35.0-46.0) Mean Corpuscular Volume 66.1 FL (80.0-100.0) 66.1 FL (80.0-100.0) Mean Corpuscular Hemoglobin 20.8 PG (27.0-34.0) 21.0 PG (27.0-34.0) Mean Corpuscular Hemoglobin Concent 31.4 % (32.0-36.0) 31.7 % (32.0-36.0) Red Cell Distribution Width 29.2 % (11.6-17.2) 29.0 % (11.6-17.2) Neutrophils (%) (Auto) 85.6 % (16.0-70.0) 86.4 % (16.0-70.0) Lymphocytes # (Auto) 0.6 TH/MM3 (1.0-4.8) 0.6 TH/MM3 (1.0-4.8) Neutrophils % (Manual) 88 % (16-70) Lymphocytes % 5 % (9-44) Myelocytes 1 % (0-0) Nucleated Red Blood Cells 3 /100 WBC (0-0) Tear Drop Cells 1+ (NORMAL) 1+ (NORMAL) Ovalocytes 1+ (NORMAL) 1+ (NORMAL) Blood Urea Nitrogen 21 MG/DL (7-18) 19 MG/DL (7-18) Random Glucose 279 MG/DL (74-106) 322 MG/DL (74-106) Albumin 1.4 GM/DL (3.4-5.0) 1.4 GM/DL (3.4-5.0) Calcium Level 8.1 MG/DL (8.5-10.1) 8.2 MG/DL (8.5-10.1) Alkaline Phosphatase 150 U/L (45-117) 148 U/L (45-117) Potassium Level 3.4 MEQ/L (3.5-5.1) 3.0 MEQ/L (3.5-5.1) Chloride Level 111 MEQ/L (98-107) Lymphocytes (%) (Auto) 8.5 % (9.0-44.0) Keratocytes OCC (NORMAL) Gamma Glutamyl Transpeptidase 291 U/L (5-55) Imaging Chest x-ray 02/20: Poor inspiratory effort, mild airspace disease left lower lung zone which may reflect atelectasis, pneumonia cannot be excluded. Cardiomegaly. CT angiography 02/20: Consolidative changes right lower lobe, left axillary adenopathy. Findings suspicious for inflammatory process. No evidence of pulmonary embolism. Abdomen/pelvis CT 02/21: Right basilar consolidation and small right pleural effusion. Small amount of abdominal ascites. Right inguinal adenopathy. Borderline retroperitoneal adenopathy. PE at Discharge GENERAL: NAD, lying in bed NEURO: Alert. Normal speech. tire center supervisor grossly intact. Motor grossly normal. SKIN: Warm and dry. No rashes or erythema. HEAD: Normocephalic. Atraumatic. EYES: EOMI. No scleral icterus. No injection or drainage. ENT: No nasal drainage. Moist mucous membranes. Few oral ulcers noted. NECK: Supple, trachea midline. No JVD or lymphadenopathy. CARDIOVASCULAR: RRR, without murmurs, rubs, or gallops. Peripheral pulses 2+. RESPIRATORY: Improved inspiratory effort from admission. Faint end expiratory wheezing. Equal breath sounds bilaterally. GASTROINTESTINAL: Abdomen soft, nontender, nondistended. No organomegaly or masses. No rebound tenderness. No guarding. MUSCULOSKELETAL: No lower extremity edema. Normal range of motion. BACK: Nontender without obvious deformity. Hospital Course Patient was admitted to the ICU given her respiratory status and started on vancomycin, Zosyn, and azithromycin for broad spectrum coverage given her initial picture concerning for sepsis. She was subsequently started on high- dose IV steroids with Solu-Medrol 250 mg IV q6h for her acute flare of lupus and treatment for acute lupus pneumonitis. Infectious disease was consulted for recommendations on her antibiotic management. Vancomycin was discontinued. Her hemoglobin on admission was 8.0 and subsequently declined to 7.3, she was transfused 2 units of packed red blood cells. Gastroenterology was consulted given her history of BRBPR. EGD and colonoscopy revealed internal/external hemorrhoids and a hiatal hernia, as well as possible candidiasis noted at distal esophagus on EGD. She was thus started on Diflucan 200mg qD for 7 days. Her respiratory status significantly improved, she was transferred down from the ICU. She will be discharged home with a course of prednisone 60 mg by mouth once daily and recommended to follow-up with her outpatient automatic nailing machine feeder. Outpatient physical therapy has been arranged as well as a rolling walker provided to the patient. Pt Condition on Discharge: Stable Discharge Disposition: Discharge Home Discharge Instructions DIET: Follow Instructions for: As Tolerated, No Restrictions Activities you can perform: Regular-No Restrictions Follow up Referrals: Appointment for Follow Up @ Rheumatology PCP Follow-up - 1 Week PCP Follow-up Rheumatology - 3-5 Days New Orders: Physical Therapy New Medications: Misc. Devices (Roller Walker) 1 Mis Mis EA .XX NOW, #1 Prednisone (Prednisone) 20 Mg Tab 60 MG PO DAILY, #60 TAB 0 Refills Amlodipine (Norvasc) 10 Mg Tab 10 MG PO DAILY, #30 TAB Fluconazole (Diflucan) 200 Mg Tab 200 MG PO DAILY, #7 TAB Continued Medications: Ferrous Sulfate (Ferrous Sulfate) 325 Mg (65 Mg Iron) Tablet 325 MG PO DAILY for Nutritional Supplement, #30 TAB 0 Refills Ondansetron (Zofran) 4 Mg Tab 4 MG PO Q6HR PRN for NAUSEA OR VOMITING, TAB 0 Refills Discontinued Medications: Amlodipine (Amlodipine) 5 Mg Tab 5 MG PO DAILY for Blood Pressure Management, #30 TAB 0 Refills Prednisone (Prednisone) 10 Mg Tab 10 MG PO TID, TAB 0 Refills Jamison Fritz MD R2 Feb 26, 2018 09:42
[2018-02-27 12:34] LABS: ALPHA-1-ANTITRYPSIN 174 mg/dL (100 - 190)
[2018-02-27 14:21] LABS: SMOOTH MUSCLE TOTAL AUTOABS Negative (Negative)
[2018-02-28 23:51] LABS: ALK PHOS BONE (ISOENZYMES) 41 % (28-66); ALK PHOS INTESTINE (ISOENZYME) 0 % (1-24); ALK PHOS LIVER (ISOENZYME) 59 % (25-69); ALK PHOS PLACENTAL ISOENZYME 0 % (0); MITOCHONDRIAL ABS 24.9 U (<=20.0)
[2018-03-01 15:53] LABS: ENDOMYSIAL AB SCREEN ND (NEGATIVE); ENDOMYSIAL AB TITER ND (<1:5)
[2018-03-01 19:54] LABS: CERULOPLASMIN 28 mg/dL (18-53)
== END 2018-02-26 09:55 | disposition home or self-care (01) | DRG 871 ==
LOC: NEPC 10:46 → NEDA 14:06 → NEDH 20:24 → HIMW 22:15 → N05A 02-23 15:39
PROVIDERS: ADMIT Family Medicine; ATTEND Family Medicine
PROC: 30233N1 Transfusion of Nonautologous Red Blood Cells into Peripheral Vein, Percutaneous Approach (ICD-10-PCS; principal; 2018-02-20)
PROC: 0DB68ZX Excision of Stomach, Via Natural or Artificial Opening Endoscopic, Diagnostic (ICD-10-PCS; 2018-02-25)
PROC: 0DB38ZX Excision of Lower Esophagus, Via Natural or Artificial Opening Endoscopic, Diagnostic (ICD-10-PCS; 2018-02-25)
PROC: 0DJD8ZZ Inspection of Lower Intestinal Tract, Via Natural or Artificial Opening Endoscopic (ICD-10-PCS; 2018-02-25)
PROC: 0DB98ZX Excision of Duodenum, Via Natural or Artificial Opening Endoscopic, Diagnostic (ICD-10-PCS; 2018-02-25 12:04)
DX: A41.9 Sepsis, unspecified organism (principal); J18.9 Pneumonia, unspecified organism; B37.81 Candidal esophagitis; M32.9 Systemic lupus erythematosus, unspecified; I10 Essential (primary) hypertension; D47.3 Essential (hemorrhagic) thrombocythemia; R79.89 Other specified abnormal findings of blood chemistry; K44.9 Diaphragmatic hernia without obstruction or gangrene; K64.8 Other hemorrhoids; K64.4 Residual hemorrhoidal skin tags; D64.9 Anemia, unspecified; Z79.1 Long term (current) use of non-steroidal anti-inflammatories (NSAID); Z79.52 Long term (current) use of systemic steroids
CPT/HCPCS: 36430; 71046; 71275; 74176; 76937; 80053; 80074; 81001; 82103; 82390; 82550; 82784; 82805; 82977; 83516; 83520; 83605; 83735; 83880; 84080; 84484; 84703; 85007; 85014; 85018; 85025; 85027; 85379; 85610; 85652; 85730; 86140; 86255; 86850; 86900; 86901; 86920; 87040; 87449; 87493; 87641; 88305; 88312; 93005; 93306; 94640; 94664; 96361; 96365; 96375; C9113; J0456; J0696; J1940; J2270; J2405; J2543; J2765; J2920; J2930; J3370; J7030; J7040; J7050; P9016; Q9967

== ENCOUNTER 2018-03-08 03:23 | Inpatient (IN) | payer MEDICAID ==
[~2018-03-08] VITALS: Ht 154.9 cm; Wt 73.5 kg
[2018-03-08] VITALS (9 sets, daily range): BP systolic 121–136; BP diastolic 81–93; PULSE 90–112; RESP 16–29; TEMP 98–98.5; O2SAT 96–100
[~2018-03-08 03:23] MED LIST changes: +AMLO10 PO; -DICL75TA PO; +DIFL200T PO; -MELO15TA20 PO; +PRED20 PO; -PRED5TAB PO; +ROLLER WALKER1 MI1; -TRAM50TA PO; +ZOFR4TAB PO
--- NOTE | 2018-03-08 04:37 | PD ---
HPI Chief Complaint: Medical Clearance Time Seen by Provider: 03:32 Travel History International Travel<30 days: No Contact w/Intl Traveler<30days: No Traveled to known affect area: No History of Present Illness HPI Patient is a 27-year-old female who recently was diagnosed with lupus. Was on February 18 and then a few days later she was admitted to the hospital she was weak she was short of breath and she turned out to be very anemic. She was transfused she was given antibiotics for pneumonia and she was put on prednisone she was discharged 5 days ago from the hospital inpatient and she was followed up by Dr. Taylor rheumatology. Dr. Taylor apparently increased her prednisone which had been 10 mg pills 3 times a day to 20 mg pills twice daily now the patient is saying she is having increased frequency of urination and increased thirst associated with body aches and hand tingling bilaterally and feet tingling bilaterally. Mother thinks it is possibly secondary to the prednisone or a recurrence of a flare of lupus. Patient's main complaint is increased frequency she denies yany abdomen pain she complains of bilateral hand tingling and bilateral feet tingling denies fever she has not called the doctor today but saw the doctor a few days ago and she is currently taking prednisone 40 mg once a day without any remission of her symptoms at this time PFSH Past Medical History Autoimmune Disease: Yes (lupus) Diabetes: Yes Patient Takes Glucophage: No Diminished Hearing: No Respiratory: Yes (pneumonia ) Tetanus Vaccination: < 5 Years ?: Not LMP: 11/2017 Tubal Ligation: Yes Past Surgical History Section: Yes (x2) Social History Alcohol Use: No Tobacco Use: No Substance Use: No Allergies-Medications (Allergen,Severity, Reaction): Coded Allergies: No Known Allergies (Verified Allergy, Unknown, 01/15/18) Reported Meds & Prescriptions Reported Meds & Active Scripts Active Roller Walker (Misc. Devices) 1 Mis Mis Ea .XX NOW Reported Plaquenil (Hydroxychloroquine Sulfate) 200 Mg Tab 200 Mg PO DAILY Take with food Norvasc (Amlodipine Besylate) 5 Mg Tab 5 Mg PO DAILY Prednisone 20 Mg Tab 20 Mg PO BID Ferrous Sulfate 325 Mg (65 Mg Iron) Tablet 325 Mg PO DAILY Review of Systems Except as stated in HPI: all other systems reviewed are Neg Genitourinary: Positive: Frequency Physical Exam Narrative GENERAL: poor dentition irregular teeth # 8,9 hair uncombed not straightened SKIN: Warm and dry. HEAD: Atraumatic. Normocephalic. EYES: Pupils equal and round. No scleral icterus. No injection or drainage. ENT: No nasal bleeding or discharge. Mucous membranes pink and moist. NECK: Trachea midline. No JVD. CARDIOVASCULAR: Regular rate and rhythm. RESPIRATORY: No accessory muscle use. Clear to auscultation. Breath sounds equal bilaterally. GASTROINTESTINAL: Abdomen soft, non-tender, nondistended. Hepatic and splenic margins not palpable. MUSCULOSKELETAL: Extremities without clubbing, cyanosis, or edema. No obvious deformities. NEUROLOGICAL: Awake and alert. No obvious cranial nerve deficits. Motor grossly within normal limits. Five out of 5 muscle strength in the arms and legs. Normal speech. PSYCHIATRIC: Appropriate mood and affect; insight and judgment normal. Data Data Last Documented VS Orders Orders Complete Blood Count With Diff (03/08/18 04:33) Comprehensive Metabolic Panel (03/08/18 04:33) Creatine Kinase (Cpk) (03/08/18 04:33) Urinalysis - C+S If Indicated (03/08/18 04:33) Chest, Pa & Lat (03/08/18 04:33) Sodium Chlor 0.9% 1000 Ml Inj (Ns 1000 M (03/08/18 06:30) Sodium Chlor 0.9% 1000 Ml Inj (Ns 1000 M (03/08/18 06:30) Activity Oob Ad Makayla (03/08/18 06:57) Vital Signs (Adult) CORI.Q4H (03/08/18 06:57) Acetaminophen (Tylenol) (03/08/18 07:00) Diet Diabetic (03/08/18 Breakfast) Admit Order (Ed Use Only) (03/08/18 06:57) Beta Hydroxybutyrate (Acetone) (03/08/18 07:01) Blood Gas Venous (Vbg) (03/08/18 07:01) Cortisol (03/08/18 07:02) Labs Laboratory Tests Test 03/08/18 04:45 03/08/18 05:20 Urine Color LIGHT-YELLOW Urine Turbidity CLEAR Urine pH 7.0 Urine Specific [place] 1.007 Urine Protein NEG mg/dL Urine Glucose (UA) NEG mg/dL Urine Ketones NEG mg/dL Urine Occult Blood NEG Urine Nitrite NEG Urine Bilirubin NEG Urine Urobilinogen LESS THAN 2.0 MG/DL Urine Leukocyte Esterase NEG Microscopic Urinalysis Comment CULT NOT INDICATED White Blood Count 9.8 TH/MM3 Red Blood Count 5.54 MIL/MM3 Hemoglobin 12.0 GM/DL Hematocrit 39.2 % Mean Corpuscular Volume 70.9 FL Mean Corpuscular Hemoglobin 21.6 PG Mean Corpuscular Hemoglobin Concent 30.5 % Red Cell Distribution Width 29.2 % Platelet Count 328 TH/MM3 Mean Platelet Volume 9.6 FL Neutrophils (%) (Auto) 85.8 % Lymphocytes (%) (Auto) 10.3 % Monocytes (%) (Auto) 3.4 % Eosinophils (%) (Auto) 0.0 % Basophils (%) (Auto) 0.5 % Neutrophils # (Auto) 8.4 TH/MM3 Lymphocytes # (Auto) 1.0 TH/MM3 Monocytes # (Auto) 0.3 TH/MM3 Eosinophils # (Auto) 0.0 TH/MM3 Basophils # (Auto) 0.0 TH/MM3 CBC Comment AUTO DIFF Differential Comment AUTO DIFF CONFIRMED Platelet Estimate NORMAL Platelet Morphology Comment NORMAL Spherocytes 1+ Tear Drop Cells 1+ Ovalocytes 1+ Blood Urea Nitrogen 30 MG/DL Creatinine 1.39 MG/DL Random Glucose 1010 MG/DL Total Protein 8.0 GM/DL Albumin 3.1 GM/DL Calcium Level 9.5 MG/DL Alkaline Phosphatase 242 U/L Aspartate Amino Transf (AST/SGOT) 10 U/L Alanine Aminotransferase (ALT/SGPT) 20 U/L Total Bilirubin 0.4 MG/DL Sodium Level 121 MEQ/L Potassium Level 6.5 MEQ/L Chloride Level 84 MEQ/L Carbon Dioxide Level 28.1 MEQ/L Anion Gap 9 MEQ/L Estimat Glomerular Filtration Rate 56 ML/MIN Total Creatine Kinase 19 U/L B-Hydroxybutyrate 0.83 MMOL/L [facility] Medical Decision Making Medical Screen Exam Complete: Yes Emergency Medical Condition: Yes Medical Record Reviewed: Yes Differential Diagnosis Differential diagnosis is hyperglycemia induced by prednisone and increase of cortisol versus lupus flare versus neuropathy of the brachial plexus versus lumbar radiculopathy causing tingling in the legs bilateral versus nonketotic hyperosmolar dehydration versus DKA to prednisone steroids Narrative Course Her glucose comes back at 1010 very hyperglycemic with pseudo-depression of the sodium I will give her normal saline wide open for 1 L and then put her at 150 an hour admit her for correction of this hyper glycemia due to cortisol levels from exogenous prednisone. pt is not acidotic and need IV hydration and then admission to regulate her immunosuppressant therapy as prednisone causing dangerous hyperglycemia Diagnosis Primary Impression: Hyperglycemia Additional Impression: Prednisone adverse reaction Qualified Codes: T38.0X5A - Adverse effect of glucocorticoids and synthetic analogues, initial encounter Scripts Easy Comfort Insulin Syr 31G X 5/16" 0.5 ml (Easy Comfort Insulin Syr 31G X 5/16 " 0.5 ml) 31 Gauge X 5/16" Mis EA .XX DIRECTED for Blood Sugar Management, #1 3 Refills Prov: William Drummond MD 03/12/18 Insulin Pen Needle/Easy Comfort 31G X 6mm (Easy Comfort Pen [place] 31G X 6 mm) 31 Gauge X 1/4" Mis BOX .XX DIRECTED for Blood Sugar Management, #1 3 Refills Prov: William Drummond MD 03/12/18 Blood Glucose Test Strips (Blood Glucose Test Strips) Strips Strip EA .XX DIRECTED for Blood Sugar Management, #1 3 Refills Prov: William Drummond MD 03/12/18 Faye Contour Blood Gluco W/Device (Faye Contour Blood Gluco W/Device) 1 Kit Kit KIT .XX DIRECTED for Blood Sugar Management, #1 0 Refills Prov: William Drummond MD 03/12/18 Insulin Aspart Inj (Novolog Inj) 100 Unit/Ml Inj 1 UNIT SQ ACHS SLIDING SCALE for Blood Sugar Management, #100 INJECTION 11 Refills Prov: William Drummond MD 03/12/18 Insulin Aspart Inj (Novolog Inj) 1,000 Unit/10 Ml Vial 3 UNITS SQ TIDAC for Blood Sugar Management, #100 INJECTION 11 Refills Prov: William Drummond MD 03/12/18 Insulin Detemir Inj (Levemir Inj) 1,000 unit/ 10 ML Vial 10 UNITS SQ HS for Blood Sugar Management, #100 INJECTION 11 Refills Do not mix with any other Insulin. Prov: William Drummond MD 03/12/18 Insulin Detemir Inj (Levemir Inj) 1,000 unit/ 10 ML Vial 20 UNITS SQ DAILY for Blood Sugar Management, #100 INJECTION 11 Refills Do not mix with any other Insulin. Prov: William Drummond MD 03/12/18 Tera Ornelas MD Mar 08, 2018 04:37
--- NOTE | 2018-03-08 05:00 | RADRPT ---
EXAM DATE/TIME: 03/08/2018 04:44 [place] COMPARISON: CHEST PA & LAT, February 20, 2018, 11:40. INDICATIONS : Short of breath. MEDICAL HISTORY : Lupus. Diabetes mellitus type I. SURGICAL HISTORY : section. Tubal ligation. ENCOUNTER: Initial ACUITY: 1 day PAIN SCORE: 0/10 LOCATION: Bilateral chest FINDINGS: PA and lateral views of the chest demonstrate submaximal inspiration with mild hemorrhage diaphragm e levation, right greater than left. No definite infiltrates seen. No evidence of pneumothorax. Both hemidiaphragms are well delineated. The heart is normal in size. CONCLUSION: No infiltrates seen. Submaximal inspiration. Andrew Lira MD on March 08, 2018 at 4:58 Board Certified Radiologist. This report was verified electronically.
[2018-03-08 05:44] LABS: AUTOMATED NEUTROPHIL # 8.4 TH/MM3 (1.8-7.7); BASOPHIL % 0.5 % (0.0-2.0); HEMATOCRIT 39.2 % (35.0-46.0); LYMPH % 10.3 % (9.0-44.0); MEAN CELL VOLUME 70.9 FL (80.0-100.0); MEAN CORPUSCULAR HEMOGLOBIN 21.6 PG (27.0-34.0); MEAN CORPUSCULAR HGB CONC 30.5 % (32.0-36.0); MEAN PLATELET VOLUME 9.6 FL (7.0-11.0); MONO % 3.4 % (0.0-8.0); MONOCYTE # 0.3 TH/MM3 (0-0.9); NEUT % 85.8 % (16.0-70.0); PLATELET COUNT 328 TH/MM3 (150-450); RED BLOOD COUNT 5.54 MIL/MM3 (4.00-5.30); RED CELL DISTRIBUTION WIDTH 29.2 % (11.6-17.2); WHITE BLOOD COUNT 9.8 TH/MM3 (4.0-11.0)
[2018-03-08 06:15] LABS: BILIRUBIN, URINE NEG (NEG); BLOOD, URINE NEG (NEG); GLUCOSE,URINE NEG (NEG); KETONE, URINE NEG (NEG); NITRITE,URINE NEG (NEG); URINE COLOR LIGHT-YELLOW (YELLW/STRAW); URINE LEUKOCYTE ESTERASE NEG (NEG)
[2018-03-08 06:16] LABS: ALBUMIN 3.1 GM/DL (3.4-5.0); ALKALINE PHOSPHATASE 242 U/L (45-117); ALT (GPT) 20 U/L (10-53); AST (GOT) 10 U/L (15-37); BICARBONATE 28.1 MEQ/L (21.0-32.0); BLOOD UREA NITROGEN 30 MG/DL (7-18); CALCIUM 9.5 MG/DL (8.5-10.1); CHLORIDE 84 MEQ/L (98-107); CREATININE 1.39 MG/DL (0.50-1.00); GLOMERULAR FILTRATION RATE 56 ML/MIN (>89); TOTAL BILIRUBIN ADULT 0.4 MG/DL (0.2-1.0)
[2018-03-08 06:23] LABS: GLUCOSE,RANDOM 1010 MG/DL (74-106); SODIUM (NA) 121 MEQ/L (136-145)
[2018-03-08 06:30] LABS: OVALOCYTES 1+ (NORMAL); SPHEROCYTES 1+ (NORMAL)
[2018-03-08] MEDS ORDERED: SODIUM CHLOR 0.9% 1000 ML INJ 1,000 ML IV ONE (06:30)
[2018-03-08 06:31] LABS: TEARDROP RBCS 1+ (NORMAL)
[2018-03-08] MEDS ORDERED: ACETAMINOPHEN 325 MG TAB PO PRN ×2 (07:00→11:00)
[2018-03-08] MEDS: SODIUM CHLOR 0.9% 1000 ML INJ 1,000 ML IV SCH ×2 (07:28→12:21)
[2018-03-08] MEDS ORDERED: AMLO5 PO (08:44)
[2018-03-08] MEDS ORDERED: PRED20 PO (08:44)
[2018-03-08] MEDS ORDERED: OMEP20TA93 PO (08:44)
[2018-03-08] MEDS ORDERED: PLAQ200T PO (08:44)
[2018-03-08 09:45] LABS: AUTOMATED NEUTROPHIL # 8.4 TH/MM3 (1.8-7.7); BASOPHIL # 0.1 TH/MM3 (0-0.2); BASOPHIL % 0.7 % (0.0-2.0); EOSINOPHIL % 0.1 % (0.0-4.0); HEMATOCRIT 32.4 % (35.0-46.0); HEMOGLOBIN 10.3 GM/DL (11.6-15.3); LYMPH % 16.2 % (9.0-44.0); LYMPHOCYTE # 1.7 TH/MM3 (1.0-4.8); MEAN CELL VOLUME 68.8 FL (80.0-100.0); MEAN CORPUSCULAR HEMOGLOBIN 21.8 PG (27.0-34.0); MEAN CORPUSCULAR HGB CONC 31.6 % (32.0-36.0); MEAN PLATELET VOLUME 9.2 FL (7.0-11.0); MONO % 3.7 % (0.0-8.0); MONOCYTE # 0.4 TH/MM3 (0-0.9); NEUT % 79.3 % (16.0-70.0); PLATELET COUNT 279 TH/MM3 (150-450); RED BLOOD COUNT 4.71 MIL/MM3 (4.00-5.30); RED CELL DISTRIBUTION WIDTH 29.1 % (11.6-17.2); WHITE BLOOD COUNT 10.6 TH/MM3 (4.0-11.0)
[2018-03-08 10:07] LABS: ALBUMIN 2.6 GM/DL (3.4-5.0); ALKALINE PHOSPHATASE 211 U/L (45-117); ALT (GPT) 17 U/L (10-53); AST (GOT) 23 U/L (15-37); BICARBONATE 26.6 MEQ/L (21.0-32.0); BLOOD UREA NITROGEN 27 MG/DL (7-18); CHLORIDE 89 MEQ/L (98-107); CREATININE 1.22 MG/DL (0.50-1.00); FREE T4 1.21 NG/DL (0.76-1.46); GLOMERULAR FILTRATION RATE 65 ML/MIN (>89); MAGNESIUM 2.1 MG/DL (1.5-2.5); PHOSPHORUS 3.7 MG/DL (2.5-4.9); SODIUM (NA) 126 MEQ/L (136-145); TOTAL BILIRUBIN ADULT 0.4 MG/DL (0.2-1.0); TOTAL PROTEIN 7.2 GM/DL (6.4-8.2)
[2018-03-08 10:09] LABS: GLUCOSE,RANDOM 842 MG/DL (74-106)
[2018-03-08] MEDS: FERROUS SULFATE 325 MG (65 MG ELEMENTAL IRON) TAB PO SCH (10:13)
[2018-03-08] MEDS: HYDROXYCHLOROQUINE SULFATE 200 MG TAB PO SCH (10:13)
[2018-03-08] MEDS: PANTOPRAZOLE SOD 20 MG DELAYED RELEASE TAB PO SCH ×2 (10:13→20:09)
[2018-03-08] MEDS: amLODIPine BESYLATE 5 MG TAB PO SCH (10:14)
[2018-03-08] MEDS: FLUCONAZOLE 200 MG TAB PO SCH (10:14)
[2018-03-08 10:20] LABS: OVALOCYTES 1+ (NORMAL); TEARDROP RBCS 1+ (NORMAL)
[2018-03-08] MEDS ORDERED: DEXTROSE 50% IN WATER 50 ML VIAL(D50) IV PUSH PRN ×2 (10:45→18:15)
[2018-03-08] MEDS ORDERED: POTASSIUM CHLORIDE 25 MEQ EFFERVESCENT TAB PO PRN (10:45)
[2018-03-08] MEDS ORDERED: INSULIN REGULAR (IV INFUSION) 100 UNITS in SODIUM CHLORIDE 0.9% INJ 99 ML IV PRN (10:45)
[2018-03-08] MEDS ORDERED: MAGNESIUM SULFATE INJ 2 GM in SODIUM CHLORIDE 0.9% INJ 96 ML IV PRN (10:45)
[2018-03-08] MEDS ORDERED: POTASSIUM PHOSPHATE INJ 30 MMOL in SODIUM CHLOR 0.9% 250 ML INJ 250 ML IV PRN (10:45)
[2018-03-08] MEDS ORDERED: POTASSIUM PHOSPHATE MONOBASIC 500 MG TAB PO/TUBE PRN (10:45)
[2018-03-08] MEDS ORDERED: POTASSIUM PHOSPHATE MONOBASIC 500 MG TAB PO PRN (10:45)
[2018-03-08] MEDS ORDERED: POTASSIUM CHLOR 40 MEQ PREMIX 100 ML IV PRN ×2 (10:45)
[2018-03-08] MEDS ORDERED: MAGNESIUM OXIDE 400 MG TAB PO PRN (10:45)
[2018-03-08] MEDS ORDERED: MAGNESIUM SULFATE INJ 4 GM in SODIUM CHLORIDE 0.9% INJ 92 ML IV PRN (10:45)
[2018-03-08] MEDS ORDERED: MISC INFORMATION OTHER ONE (10:45)
[2018-03-08] MEDS ORDERED: POTASSIUM CHLOR 20 MEQ PREMIX 100 ML IV PRN ×2 (10:45)
[2018-03-08] MEDS ORDERED: SODIUM PHOSPHATE INJ 30 MMOL in SODIUM CHLOR 0.9% 250 ML INJ 240 ML IV PRN (10:45)
[2018-03-08] MEDS ORDERED: MORPHINE SULFATE 2 MG/ML SYRINGE IV PUSH PRN (11:00)
[2018-03-08] MEDS ORDERED: BISACODYL 10 MG SUPP RECTAL PRN (11:00)
[2018-03-08] MEDS ORDERED: MAGNESIUM HYDROXIDE SUSP 30 ML CUP PO PRN (11:00)
[2018-03-08] MEDS ORDERED: LACTULOSE SYRUP 20 GM/30 ML CUP PO PRN (11:00)
[2018-03-08] MEDS ORDERED: METOCLOPRAMIDE HCL 10 MG/2 ML VIAL IV PUSH PRN (11:00)
[2018-03-08] MEDS ORDERED: MORPHINE SULFATE 4 MG/ML INJ IV PUSH PRN (11:00)
[2018-03-08] MEDS ORDERED: SODIUM CHLORIDE 0.9% FLUSH 10 ML FLUSH IV FLUSH PRN (11:00)
[2018-03-08] MEDS ORDERED: ONDANSETRON HCL 4 MG/2 ML VIAL IVP PRN (11:00)
[2018-03-08] MEDS ORDERED: oxyCODONE/ACETAMINOPHEN 10 MG/325 MG TAB PO PRN (11:00)
[2018-03-08] MEDS ORDERED: oxyCODONE/ACETAMINOPHEN 5 MG/325 MG TAB PO PRN (11:00)
[2018-03-08] MEDS ORDERED: NALOXONE HCL 0.4 MG/ML AMP IV PUSH PRN (11:00)
[2018-03-08] MEDS ORDERED: SENNOSIDES 8.6 MG TAB PO PRN (11:00)
--- NOTE | 2018-03-08 11:02 | HHI.HP ---
[facility] Service [facility] Primary Care Physician No Primary Care Physician Admission Diagnosis hyperglycemia due to prednisone CORTISOL Diagnoses: (1) Hyperkalemia Diagnosis: Principal (2) Hyperglycemia Diagnosis: Principal (3) Prednisone adverse reaction Diagnosis: Principal (4) SLE (systemic lupus erythematosus) Diagnosis: Secondary (5) Thrombocytosis Diagnosis: Secondary (6) Hypertension Diagnosis: Secondary (7) Nutrition, metabolism, and development symptoms Diagnosis: Secondary Chief Complaint: Found to have hyperglycemia Travel History International Travel<30 Days: No Contact w/Intl Traveler <30 Da: No Traveled to Known Affected Are: No History of Present Illness Patient is a 27-year-old -[place] female. Recently diagnosed with lupus. Was admitted on February 18 was found to be very anemic. She had been transfused and was given antibiotics for pneumonia was placed on prednisone. The patient saw a Dr. Taylor of rheumatology, and her prednisone was increased. Patient is now having increased frequency of urination and thirst and body aches. Was found to be severely hyperglycemic with a blood sugar over thousand will be admitted and will be placed on an insulin drip. Also had some bilateral hand tingling and was also found to have hyperkalemia. Patient will be admitted to the ICU for an insulin drip due to the severe hyperglycemia and probable new onset diabetes mellitus Review of Systems Constitutional: COMPLAINS OF: Fatigue, Change in appetite, DENIES: Diaphoretic episodes, Fever, Weight gain, Weight loss, Chills, Dizziness, Night Sweats Endocrine: COMPLAINS OF: Polydipsia, Polyuria, Polyphagia, DENIES: Abnorml menstrual pattern, Heat/cold intolerance Eyes: DENIES: Blurred vision, Diplopia, Eye inflammation, Eye pain, Vision loss , Photosensitivity, Double Vision Ears, nose, mouth, throat: DENIES: Tinnitus, Hearing loss, Vertigo, Nasal discharge, Oral lesions, Throat pain, Hoarseness, Ear Pain, Running Nose, Epistaxis, Sinus Pain, Toothache, Odynophagia Respiratory: DENIES: Apneas, Cough, Snoring, Wheezing, Hemoptysis, Sputum production, Shortness of breath Cardiovascular: COMPLAINS OF: Lower Extremity Edema, DENIES: Chest pain, Palpitations, Syncope, Dyspnea on Exertion, PND, Orthopnea, Claudication Gastrointestinal: COMPLAINS OF: Abdominal pain, DENIES: Black stools, Bloody stools, Constipation, Diarrhea, Nausea, Vomiting, Difficulty Swallowing, Anorexia Genitourinary: DENIES: Abnormal vaginal bleeding, Dysmenorrhea, Dyspareunia, Sexual dysfunction, Urgency, Hematuria, Dysuria, Nocturia, Vaginal discharge Musculoskeletal: COMPLAINS OF: Joint pain, Muscle aches, Stiffness, Joint Swelling, Back pain, Neck pain Integumentary: DENIES: Abnormal pigmentation, Pruritus, Rash, Nail changes, Breast masses, Breast skin changes, Nipple discharge Hematologic/lymphatic: DENIES: Bruising, Lymphadenopathy Immunologic/allergic: DENIES: Eczema, Urticaria Neurologic: COMPLAINS OF: Poor Balance, DENIES: Abnormal gait, Headache, Localized weakness, Paresthesias, Seizures, Speech Problems, Tremor Psychiatric: DENIES: Anxiety, Confusion, Mood changes, Depression, Hallucinations, Agitation, Suicidal Ideation, Homicidal Ideation, Delusions Except as stated in HPI: all other systems reviewed are Neg Past Family Social History Past Medical History Lupus Probable diabetes Recent pneumonia Hypertension obesity GERD Recent transfusion for severe anemia Past Surgical History Tubal ligation sections 2 Reported Medications Reported Meds & Active Scripts Active Diflucan (Fluconazole) 200 Mg Tab 200 Mg PO DAILY Roller Walker (Misc. Devices) 1 Mis Mis Ea .XX NOW Reported Plaquenil (Hydroxychloroquine Sulfate) 200 Mg Tab 200 Mg PO DAILY Take with food Omeprazole 20 Mg Tab 20 Mg PO BID Norvasc (Amlodipine Besylate) 5 Mg Tab 5 Mg PO DAILY Prednisone 20 Mg Tab 20 Mg PO BID Ferrous Sulfate 325 Mg (65 Mg Iron) Tablet 325 Mg PO DAILY Allergies: Coded Allergies: No Known Allergies (Verified Allergy, Unknown, 01/15/18) Active Ordered Medications Current Medications Sodium Chloride 1,000 ml @ 999 mls/hr BOLUS ONCE IV Last administered on 03/08at 06:32; Start 03/08/18 at 06:30; Stop 03/08/18 at 07:30; Status DC Sodium Chloride 1,000 ml @ 150 mls/hr Q6H40M IV Last administered on at 07:28; Start 03/08/18 at 06:30 Acetaminophen (Tylenol) 650 mg Q4H PRN PO FEVER; Start 03/08/18 at 07:00 Amlodipine Besylate (Norvasc) 5 mg DAILY PO Last administered on 03/08/18at 10: 14; Start 03/08/18 at 09:15 Ferrous Sulfate (Ferrous Sulfate) 325 mg DAILY PO Last administered on at 10:13; Start 03/08/18 at 09:15 Fluconazole (Diflucan) 200 mg DAILY PO Last administered on 03/08/18at 10:14; Start 03/08/18 at 09:15 Hydroxychloroquine Sulfate (Plaquenil) 200 mg DAILY PO Last administered on at 10:13; Start 03/08/18 at 09:15 Pantoprazole Sodium (Protonix) 20 mg BID PO Last administered on 03/08/18at 10: 13; Start 03/08/18 at 09:15 Insulin Human Regular 100 units/ Sodium Chloride 100 ml @ 1 mls/hr TITRATE PRN IV Blood Glucose Control; Start 03/08/18 at 10:45; Status UNV Dextrose (D50w (Vial) Inj) 50 ml UNSCH PRN IV PUSH SEE LABEL COMMENTS; Start at 10:45; Status UNV Miscellaneous Information 1 ONCE ONCE OTHER ; Start 03/08/18 at 10:45; Stop at 10:46; Status UNV Potassium Chloride 100 ml @ 50 mls/hr Q2H PRN IV For Potassium 2.8 - 3.2 mEq/L ; Start 03/08/18 at 10:45; Status UNV Potassium Chloride 100 ml @ 50 mls/hr Q2H PRN IV For Potassium 2.8 - 3.2 mEq/L ; Start 03/08/18 at 10:45; Status UNV Potassium Bicarb/ Potassium Chloride (K-Lyte Cl Eff) 50 meq UNSCH PRN PO For Potassium 3.3 - 3.5 mEq/L; Start 03/08/18 at 10:45; Status UNV Potassium Chloride 100 ml @ 25 mls/hr UNSCH PRN IV For Potassium 3.3 - 3.5 mEq /L; Start 03/08/18 at 10:45; Status UNV Potassium Chloride 100 ml @ 50 mls/hr Q2H PRN IV For Potassium 3.3 - 3.5 mEq/L ; Start 03/08/18 at 10:45; Status UNV Magnesium Sulfate 4 gm/Sodium Chloride 100 ml @ 50 mls/hr UNSCH PRN IV For Magnesium 0.9 - 1.1 mg/dL; Start 03/08/18 at 10:45; Status UNV Magnesium Oxide (Mag-Ox) 800 mg UNSCH PRN PO For Magnesium 1.2 - 1.6 mg/dL; Start 03/08/18 at 10:45; Status UNV Magnesium Sulfate 2 gm/Sodium Chloride 100 ml @ 50 mls/hr UNSCH PRN IV For Magnesium 1.2 - 1.6 mg/dL; Start 03/08/18 at 10:45; Status UNV Potassium Phosphate (K-Phos) 2,000 mg Q4H PRN PO For Phosphorus < 2.5 mg/dL; Start 03/08/18 at 10:45; Status UNV Sodium Phosphate 30 mmol/Sodium Chloride 250 ml @ 42 mls/hr UNSCH PRN IV For Phosphorus < 2.5 mg/dL; Start 03/08/18 at 10:45; Status UNV Potassium Phosphate (K-Phos) 2,000 mg UNSCH PRN PO/TUBE SEE LABEL COMMENTS; Start 03/08/18 at 10:45; Status UNV Potassium Phosphate 30 mmol/ Sodium Chloride 260 ml @ 42 mls/hr UNSCH PRN IV SEE LABEL COMMENTS; Start 03/08/18 at 10:45; Status UNV Prednisone (Deltasone) 20 mg BID PO ; Start 03/08/18 at 21:00; Status UNV Family History Diabetes and hypertension in the family Social History Denies any tobacco Denies any alcohol denies any substance abuse Physical Exam Vital Signs Vital Signs Date Time Temp Pulse Resp B/P (MAP) Pulse Ox O2 Delivery O2 Flow Rate FiO2 03/08/18 08:45 91 16 127/84 (98) 100 Room Air 03/08/18 06:31 90 16 126/81 (96) 99 Room Air 03/08/18 04:59 16 03/08/18 03:25 98.5 100 20 130/93 (105) 97 Physical Exam GENERAL: This is a well-nourished, well-developed patient, in no apparent distress. SKIN: No rashes, ecchymoses or lesions. Cool and dry. HEAD: Atraumatic. Normocephalic. No temporal or scalp tenderness. EYES: Pupils equal round and reactive. Extraocular motions intact. No scleral icterus. No injection or drainage. ENT: Nose without bleeding, purulent drainage or septal hematoma. Throat without erythema, tonsillar hypertrophy or exudate. Uvula midline. Airway patent. NECK: Trachea midline. No JVD or lymphadenopathy. Supple, nontender, no meningeal signs. CARDIOVASCULAR: Regular rate and rhythm without murmurs, gallops, or rubs. S1- S2 no S3 or S4 RESPIRATORY: Clear to auscultation. Breath sounds equal bilaterally. No wheezes , rales, or rhonchi. GASTROINTESTINAL: Abdomen soft, non-tender, nondistended. No hepato-splenomegaly , or palpable masses. No guarding. MUSCULOSKELETAL: Extremities without clubbing, cyanosis, or edema. No joint tenderness, effusion, or edema noted. No calf tenderness. Negative Homans sign bilaterally. NEUROLOGICAL: Awake and alert. Cranial nerves II through XII intact. Motor and sensory grossly within normal limits. 4 out of 5 muscle strength in all muscle groups. Normal speech. Insight and judgment is good Mood and behavior is appropriate Laboratory Laboratory Tests Test 03/08/18 04:45 03/08/18 05:20 03/08/18 07:12 03/08/18 09:21 Urine Color LIGHT-YELLOW Urine Turbidity CLEAR Urine pH 7.0 Urine Specific [place] 1.007 Urine Protein NEG Urine Glucose (UA) NEG Urine Ketones NEG Urine Occult Blood NEG Urine Nitrite NEG Urine Bilirubin NEG Urine Urobilinogen LESS THAN 2.0 Urine Leukocyte Esterase NEG Microscopic Urinalysis Comment CULT NOT INDICATED White Blood Count 9.8 10.6 Red Blood Count 5.54 4.71 Hemoglobin 12.0 10.3 Hematocrit 39.2 32.4 Mean Corpuscular Volume 70.9 68.8 Mean Corpuscular Hemoglobin 21.6 21.8 Mean Corpuscular Hemoglobin Concent 30.5 31.6 Red Cell Distribution Width 29.2 29.1 Platelet Count 328 279 Mean Platelet Volume 9.6 9.2 Neutrophils (%) (Auto) 85.8 79.3 Lymphocytes (%) (Auto) 10.3 16.2 Monocytes (%) (Auto) 3.4 3.7 Eosinophils (%) (Auto) 0.0 0.1 Basophils (%) (Auto) 0.5 0.7 Neutrophils # (Auto) 8.4 8.4 Lymphocytes # (Auto) 1.0 1.7 Monocytes # (Auto) 0.3 0.4 Eosinophils # (Auto) 0.0 0.0 Basophils # (Auto) 0.0 0.1 CBC Comment AUTO DIFF AUTO DIFF Differential Comment AUTO DIFF CONFIRMED AUTO DIFF CONFIRMED Platelet Estimate NORMAL Platelet Morphology Comment NORMAL Spherocytes 1+ Tear Drop Cells 1+ 1+ Ovalocytes 1+ 1+ Blood Urea Nitrogen 30 27 Creatinine 1.39 1.22 Random Glucose 1010 842 Total Protein 8.0 7.2 Albumin 3.1 2.6 Calcium Level 9.5 9.0 Alkaline Phosphatase 242 211 Aspartate Amino Transf (AST/SGOT) 10 23 Alanine Aminotransferase (ALT/SGPT) 20 17 Total Bilirubin 0.4 0.4 Sodium Level 121 126 Potassium Level 6.5 6.3 Chloride Level 84 89 Carbon Dioxide Level 28.1 26.6 Anion Gap 9 10 Estimat Glomerular Filtration Rate 56 65 Total Creatine Kinase 19 B-Hydroxybutyrate 0.83 Blood Gas Puncture Site I.V. Blood Gas Patient Temperature 98.6 Venous Blood pH 7.34 Venous Blood Partial Pressure CO2 54 Venous Blood Partial Pressure O2 31 Venous Blood HCO3 29 Venous Blood Oxygen Saturation 50 Venous Blood Oxygen Content 6.9 Venous Blood Base Excess 3.5 Oxygen Delivery Device ROOM AIR Blood Gas Inspired Oxygen 21 Phosphorus Level 3.7 Magnesium Level 2.1 Free Thyroxine 1.21 Thyroid Stimulating Hormone 3rd Gen 1.280 Random Cortisol 20.8 Result Diagram: 03/08/1821 03/08/18 0921 Imaging Last Impressions Chest X-Ray 03/08/18 0433 Signed Impressions: Service Date/Time: Thursday, March 08, 2018 04:44 - CONCLUSION: No infiltrates seen. Submaximal inspiration. Andrew Lira MD Capmikii VTE Risk Assessment Caprini VTE Risk Assessment: Mod/High Risk (score >= 2) Caprini Risk Assessment Model Point Value = 1 Point Value = 2 Point Value = 3 Point Value = 5 Age 41-60 Minor surgery BMI > 25 kg/m2 Swollen legs Varicose veins or History of unexplained or recurrent spontaneous Oral contraceptives or hormone replacement Sepsis (< 1 month) Serious lung disease, including pneumonia (< 1 month) Abnormal pulmonary function Acute myocardial infarction Congestive heart failure (< 1 month) History of inflammatory bowel disease Medical patient at bed rest Age 61-74 Arthroscopic surgery Major open surgery (> 45 min) Laparoscopic surgery (> 45 min) Malignancy Confined to bed (> 72 hours) Immobilizing plaster cast Central venous access Age >= 75 History of VTE Family history of VTE Factor V Leiden Prothrombin [id number] Lupus anticoagulant Anticardiolipin antibodies Elevated serum homocysteine Heparin-induced thrombocytopenia Other congenital or acquired thrombophilia Stroke (< 1 month) Elective arthroplasty Hip, pelvis, or leg fracture Acute spinal cord injury (< 1 month) Prophylaxis Regimen Total Risk Factor Score Risk Level Prophylaxis Regimen 0-1 Low Early ambulation 2 Moderate Order ONE of the following: *Sequential Compression Device (SCD) *Heparin 5000 units SQ BID 3-4 Higher Order ONE of the following medications: *Heparin 5000 units SQ TID *Enoxaparin/Lovenox 40 mg SQ daily (WT < 150 kg, CrCl > 30 mL/min) *Enoxaparin/Lovenox 30 mg SQ daily (WT < 150 kg, CrCl > 10-29 mL/min) *Enoxaparin/Lovenox 30 mg SQ BID (WT < 150 kg, CrCl > 30 mL/min) AND/OR *Sequential Compression Device (SCD) 5 or more Highest Order ONE of the following medications: *Heparin 5000 units SQ TID (Preferred with Epidurals) *Enoxaparin/Lovenox 40 mg SQ daily (WT < 150 kg, CrCl > 30 mL/min) *Enoxaparin/Lovenox 30 mg SQ daily (WT < 150 kg, CrCl > 10-29 mL/min) *Enoxaparin/Lovenox 30 mg SQ BID (WT < 150 kg, CrCl > 30 mL/min) AND *Sequential Compression Device (SCD) Assessment and Plan Assessment and Plan Hyperglycemia with what sounds like new onset diabetes Had elevated sugars last admission but was probably chalked up to the prednisone use We will check a hemoglobin A1c We will continue on insulin drip in place in the ICU Continue on IV fluids Diabetic education Diabetes Hyponatremia continue on IV fluids and replace Renal insufficiency/dehydration continue on IV fluids Lupus continue on prednisone Hypertension resume home medications DVT prophylaxis with Lovenox subcu daily GI prophylaxis with Protonix twice daily due to chronic prednisone use Hyperkalemia will give Kayexalate one time Code Status Full code Discussed Condition With Patient and RN Physician Certification 2 Midnight Certification Type: Admission for Inpatient Services Order for Inpatient Services The services are ordered in accordance with Medicare regulations or non- Medicare payer requirements, as applicable. In the case of services not specified as inpatient-only, they are appropriately provided as inpatient services in accordance with the 2-midnight benchmark. Estimated LOS (days): 2 days is the estimated time the patient will need to remain in the hospital, assuming treatment plan goals are met and no additional complications. Post-Hospital Plan: Thomas Hdz DO Mar 08, 2018 11:02
[2018-03-08 12:37] LABS: TROPONIN I LESS THAN 0.02 NG/ML (0.02-0.05)
[2018-03-08] MEDS ORDERED: SODIUM POLYSTYRENE SULFONATE SUSP 15 GM/60 ML CUP PO ONE (13:00)
[2018-03-08] MEDS: ENOXAPARIN SODIUM 40 MG/0.4 ML SYRINGE SQ SCH (13:41)
[2018-03-08] MEDS: DEXT 5%-NACL 0.9% 1000 ML INJ 1,000 ML IV SCH ×2 (16:20→22:47)
[2018-03-08] MEDS ORDERED: DEXTROSE 50% IN WATER 50 ML SYRINGE ONE (16:21)
[2018-03-08 17:39] LABS: TROPONIN I LESS THAN 0.02 NG/ML (0.02-0.05)
[2018-03-08] MEDS ORDERED: GLUCAGON 1 MG/ML VIAL OTHER PRN (18:15)
[2018-03-08] MEDS ORDERED: DC Insulin drip 2 hrs post basal insulin dose ONE (18:15)
[2018-03-08] MEDS ORDERED: DC previous DKA orders (HMC 1917) ONE (18:15)
[2018-03-08] MEDS: INSULIN ASPART SUPPLEMENTAL SCALE SQ SCH ×2 (18:40→20:09)
[2018-03-08] MEDS: INSULIN DETEMIR 100 UNITS/ML VIAL SQ SCH (20:09)
[2018-03-08] MEDS: DOCUSATE SODIUM 50 MG/SENNA 8.6 MG TAB PO SCH (20:09)
[2018-03-08] MEDS: predniSONE 20 MG TAB PO SCH (20:09)
[2018-03-08] MEDS: SODIUM CHLORIDE 0.9% FLUSH 10 ML FLUSH IV FLUSH SCH (20:10)
[2018-03-09] VITALS (10 sets, daily range): BP systolic 116–134; BP diastolic 71–97; PULSE 68–98; RESP 19–48; TEMP 97.6–98.6; O2SAT 97–100
[2018-03-09] MEDS: DEXT 5%-NACL 0.9% 1000 ML INJ 1,000 ML IV SCH (05:35)
[2018-03-09] MEDS: SODIUM CHLORIDE 0.9% FLUSH 10 ML FLUSH IV FLUSH SCH ×2 (08:40→21:11)
[2018-03-09] MEDS: INSULIN ASPART SUPPLEMENTAL SCALE SQ SCH ×4 (08:40→21:11)
[2018-03-09] MEDS: DOCUSATE SODIUM 50 MG/SENNA 8.6 MG TAB PO SCH ×2 (08:41→21:10)
[2018-03-09] MEDS: FLUCONAZOLE 200 MG TAB PO SCH (08:41)
[2018-03-09] MEDS: FERROUS SULFATE 325 MG (65 MG ELEMENTAL IRON) TAB PO SCH (08:41)
[2018-03-09] MEDS: amLODIPine BESYLATE 5 MG TAB PO SCH (08:41)
[2018-03-09] MEDS: PANTOPRAZOLE SOD 20 MG DELAYED RELEASE TAB PO SCH ×2 (08:41→21:10)
[2018-03-09] MEDS: predniSONE 20 MG TAB PO SCH ×2 (08:41→21:10)
[2018-03-09] MEDS: HYDROXYCHLOROQUINE SULFATE 200 MG TAB PO SCH (08:42)
[2018-03-09] MEDS: INSULIN DETEMIR 100 UNITS/ML VIAL SQ SCH ×2 (08:42→21:11)
[2018-03-09] MEDS ORDERED: INSULIN DETEMIR 100 UNITS/ML VIAL SQ ONE ×2 (09:30→12:00)
--- NOTE | 2018-03-09 10:56 | HHI.PR ---
Subjective Remarks The pt was resting comfortably in bed. She said she was a little tired. She had no acute complaints. 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 Discussed with nursing. Objective Vitals Vital Signs Date Time Temp Pulse Resp B/P (MAP) Pulse Ox O2 Delivery O2 Flow Rate FiO2 03/09/18 08:44 100 03/09/18 08:00 97.6 68 48 116/71 (86) 100 03/09/18 04:00 98.3 88 25 130/90 (103) 100 03/09/18 03:58 97 03/09/18 00:00 98.6 98 24 131/97 (108) 99 03/08/18 21:16 96 03/08/18 20:00 98.4 99 26 130/82 (98) 99 03/08/18 16:00 98.2 112 29 136/92 (107) 100 03/08/18 12:30 98.0 97 24 130/88 (102) 100 03/08/18 12:30 98.0 97 24 130/88 (102) 98 03/08/18 12:30 97 03/08/18 12:22 78 19 121/87 (98) 100 03/08/18 11:27 98 21 I/O 03/08/18 03/08/18 03/08/18 03/09/18 03/09/18 03/09/18 07:00 15:00 23:00 07:00 15:00 23:00 Intake Total 1000 ml 1200 ml 1350 ml Output Total 350 ml 400 ml Balance 1000 ml 850 ml 950 ml Intake Oral 200 ml 350 ml IV Total 1000 ml 1000 ml 1000 ml Output Urine Total 350 ml 400 ml # Bowel Movements 0 Result Diagram: 03/08/18 0921 03/08/18 1629 Imaging Last Impressions Chest X-Ray 03/08/18 0433 Signed Impressions: Service Date/Time: Thursday, March 08, 2018 04:44 - CONCLUSION: No infiltrates seen. Submaximal inspiration. Andrew Lira MD Objective Remarks GENERAL: This is a well-nourished, well-developed patient, in no apparent distress. SKIN: No rashes, ecchymoses or lesions. Cool and dry. HEAD: Atraumatic. Normocephalic. No temporal or scalp tenderness. EYES: Pupils equal round and reactive. Extraocular motions intact. No scleral icterus. No injection or drainage. ENT: Nose without bleeding, purulent drainage or septal hematoma. Throat without erythema, tonsillar hypertrophy or exudate. Uvula midline. Airway patent. NECK: Trachea midline. No JVD or lymphadenopathy. Supple, nontender, no meningeal signs. CARDIOVASCULAR: Regular rate and rhythm without murmurs, gallops, or rubs. S1- S2 no S3 or S4 RESPIRATORY: Clear to auscultation. Breath sounds equal bilaterally. No wheezes , rales, or rhonchi. GASTROINTESTINAL: Abdomen soft, non-tender, nondistended. No hepato-splenomegaly , or palpable masses. No guarding. MUSCULOSKELETAL: Extremities without clubbing, cyanosis, or edema. No joint tenderness, effusion, or edema noted. NEUROLOGICAL: Awake and alert. Cranial nerves II through XII intact. Motor and sensory grossly within normal limits. Normal speech. PSYCH: Mood and affect appropriate. Medications and IVs Current Medications Medications (Trade) Dose Ordered Sig/[facility] Route Start Time Stop Time Status Last Admin (Norvasc) 5 mg DAILY PO 03/08/18 09:15 03/09/18 08:41 (Ferrous Sulfate) 325 mg DAILY PO 03/08/18 09:15 03/09/18 08:41 (Diflucan) 200 mg DAILY PO 03/08/18 09:15 03/09/18 08:41 (Plaquenil) 200 mg DAILY PO 03/08/18 09:15 03/09/18 08:42 (Protonix) 20 mg BID PO 03/08/18 09:15 03/09/18 08:41 (Deltasone) 20 mg BID PO 03/08/18 21:00 03/09/18 08:41 (NS Flush) 2 ml UNSCH PRN IV FLUSH 03/08/18 11:00 (NS Flush) 2 ml BID IV FLUSH 03/08/18 21:00 03/09/18 08:40 (Tylenol) 650 mg Q4H PRN PO 03/08/18 11:00 (Zofran Inj) 4 mg Q6H PRN IVP 03/08/18 11:00 (Reglan Inj) 5 mg Q6H PRN IV PUSH 03/08/18 11:00 (Lovenox Inj) 40 mg Q24H SQ 03/08/18 12:00 03/08/18 13:41 (Tylenol) 650 mg Q6H PRN PO 03/08/18 11:00 (Percocet 5-325 Mg) 1 tab Q6H PRN PO 03/08/18 11:00 (Percocet 10-325 Mg) 1 tab Q6H PRN PO 03/08/18 11:00 03/09/18 03:59 (Morphine Inj) 2 mg Q3H PRN IV PUSH 03/08/18 11:00 (Morphine Inj) 4 mg Q3H PRN IV PUSH 03/08/18 11:00 (Narcan Inj) 0.4 mg UNSCH PRN IV PUSH 03/08/18 11:00 (Ursula-Colace) 1 tab BID PO 03/08/18 21:00 03/09/18 08:41 (Milk Of Magnesia Liq) 30 ml Q12H PRN PO 03/08/18 11:00 (Senokot) 17.2 mg Q12H PRN PO 03/08/18 11:00 (Dulcolax Supp) 10 mg DAILY PRN RECTAL 03/08/18 11:00 (Lactulose Liq) 30 ml DAILY PRN PO 03/08/18 11:00 Dextrose/Sodium Chloride 1,000 ml @ 150 mls/hr Q6H40M IV 03/08/18 16:30 03/09/18 05:35 (Levemir Inj) 5 units BID SQ 03/08/18 21:00 03/09/18 08:42 (NovoLOG SUPPLEMENTAL SCALE) 1 ACHS SLIDING SCALE SQ 03/08/18 18:15 03/09/18 08:40 (D50w (Vial) Inj) 50 ml UNSCH PRN IV PUSH 03/08/18 18:15 (Glucagon Inj) 1 mg UNSCH PRN OTHER 03/08/18 18:15 A/P Problem List: (1) Hyperkalemia ICD Code: E87.5 - Hyperkalemia (2) Hyperglycemia ICD Code: R73.9 - Hyperglycemia, unspecified Status: Acute (3) Prednisone adverse reaction ICD Code: T38.0X5A - Adverse effect of glucocorticoids and synthetic analogues , initial encounter Status: Acute (4) SLE (systemic lupus erythematosus) ICD Code: M32.9 - Systemic lupus erythematosus, unspecified (5) Thrombocytosis ICD Code: D47.3 - Essential (hemorrhagic) thrombocythemia Status: Resolved (6) Hypertension ICD Code: I10 - Essential (primary) hypertension Status: Chronic (7) Nutrition, metabolism, and development symptoms ICD Code: R63.8 - Other symptoms and signs concerning food and fluid intake Status: Acute Assessment and Plan Hyperglycemia/ HONK The pt has a history of borderline diabetes. Exacerbated by prednisone. She did not have an anion gap. S/p insulin gtt. Blood glucose has been fluctuating widely. - We will check a hemoglobin A1c. - continue Levemir with a sliding scale. - Continue on IV fluids. - Diabetic education. Hyponatremia S/t hyperglycemia. - treatment as above. - continue on IV fluids. Renal insufficiency/ Hyperkalemia S/t above. S/p Kayexalate. - continue on IV fluids. Lupus Follows with rheumatology. - continue on prednisone and Plaquenil. Anemia MCV is low. - check iron studies, Hemoccult. DVT prophylaxis: Lovenox Discharge Planning Keep in ICU for now Parish Falk DO Mar 09, 2018 10:56
[2018-03-09 11:18] LABS: AUTOMATED NEUTROPHIL # 8.4 TH/MM3 (1.8-7.7); BASOPHIL % 0.2 % (0.0-2.0); EOSINOPHIL % 0.3 % (0.0-4.0); HEMATOCRIT 33.7 % (35.0-46.0); HEMOGLOBIN 10.5 GM/DL (11.6-15.3); LYMPH % 8.2 % (9.0-44.0); LYMPHOCYTE # 0.8 TH/MM3 (1.0-4.8); MEAN CELL VOLUME 69.3 FL (80.0-100.0); MEAN CORPUSCULAR HEMOGLOBIN 21.6 PG (27.0-34.0); MEAN CORPUSCULAR HGB CONC 31.2 % (32.0-36.0); MEAN PLATELET VOLUME 8.8 FL (7.0-11.0); MONO % 2.6 % (0.0-8.0); MONOCYTE # 0.2 TH/MM3 (0-0.9); NEUT % 88.7 % (16.0-70.0); PLATELET COUNT 231 TH/MM3 (150-450); RED BLOOD COUNT 4.87 MIL/MM3 (4.00-5.30); RED CELL DISTRIBUTION WIDTH 29.5 % (11.6-17.2); WHITE BLOOD COUNT 9.4 TH/MM3 (4.0-11.0)
[2018-03-09] MEDS: SODIUM CHLOR 0.9% 1000 ML INJ 1,000 ML IV SCH ×2 (11:30→19:48)
[2018-03-09] MEDS: ENOXAPARIN SODIUM 40 MG/0.4 ML SYRINGE SQ SCH (11:43)
[2018-03-09 11:49] LABS: OVALOCYTES 1+ (NORMAL); TEARDROP RBCS 1+ (NORMAL)
[2018-03-09 12:10] LABS: % SATURATION IRON PROFILE 42.9 % (20-50); ALBUMIN 2.3 GM/DL (3.4-5.0); ALKALINE PHOSPHATASE 165 U/L (45-117); ALT (GPT) 24 U/L (10-53); AST (GOT) 29 U/L (15-37); BICARBONATE 24.8 MEQ/L (21.0-32.0); BLOOD UREA NITROGEN 19 MG/DL (7-18); CALCIUM 8.5 MG/DL (8.5-10.1); CHLORIDE 98 MEQ/L (98-107); CREATININE 0.86 MG/DL (0.50-1.00); FOLATE 4.2 NG/ML (3.1-17.5); GLOMERULAR FILTRATION RATE 97 ML/MIN (>89); IRON (FE) 84 MCG/DL (50-170); MAGNESIUM 1.5 MG/DL (1.5-2.5); PHOSPHORUS 2.3 MG/DL (2.5-4.9); SODIUM (NA) 133 MEQ/L (136-145); TOTAL BILIRUBIN ADULT 0.2 MG/DL (0.2-1.0); TOTAL IRON BINDING CAPACITY 196 MCG/DL (250-450); TOTAL PROTEIN 6.2 GM/DL (6.4-8.2)
[2018-03-09] MEDS: INSULIN ASPART 1,000 UNITS/10 ML VIAL SQ SCH ×2 (12:11→16:24)
[2018-03-09 12:12] LABS: GLUCOSE,RANDOM 461 MG/DL (74-106)
[2018-03-09 12:38] LABS: FERRITIN 376 NG/ML (8-252)
[2018-03-09] MEDS ORDERED: SODIUM PHOSPHATE INJ 15 MMOL in SODIUM CHLORIDE 0.9% INJ 150 ML IV ONE (14:00)
[2018-03-09] MEDS: MAGNESIUM SULFATE 1 GM PREMIX 100 ML IV SCH ×2 (16:25→17:33)
[2018-03-09] MEDS ORDERED: INSULIN ASPART 1,000 UNITS/10 ML VIAL SQ ONE (18:45)
[2018-03-09] MEDS ORDERED: INSULIN DETEMIR 100 UNITS/ML VIAL SQ SCH (21:00)
[2018-03-10] VITALS (12 sets, daily range): BP systolic 132–160; BP diastolic 73–94; PULSE 77–91; RESP 15–21; TEMP 96.2–98.8; O2SAT 98–100
[2018-03-10] MEDS: SODIUM CHLOR 0.9% 1000 ML INJ 1,000 ML IV SCH (04:15)
[2018-03-10] MEDS: INSULIN ASPART SUPPLEMENTAL SCALE SQ SCH ×4 (08:00→20:28)
[2018-03-10] MEDS: HYDROXYCHLOROQUINE SULFATE 200 MG TAB PO SCH (08:11)
[2018-03-10] MEDS: FERROUS SULFATE 325 MG (65 MG ELEMENTAL IRON) TAB PO SCH (08:11)
[2018-03-10] MEDS: PANTOPRAZOLE SOD 20 MG DELAYED RELEASE TAB PO SCH ×2 (08:11→20:27)
[2018-03-10] MEDS: FLUCONAZOLE 200 MG TAB PO SCH (08:12)
[2018-03-10] MEDS: predniSONE 20 MG TAB PO SCH (08:12)
[2018-03-10] MEDS: INSULIN ASPART 1,000 UNITS/10 ML VIAL SQ SCH ×3 (08:12→18:02)
[2018-03-10] MEDS: amLODIPine BESYLATE 5 MG TAB PO SCH (08:12)
[2018-03-10] MEDS: DOCUSATE SODIUM 50 MG/SENNA 8.6 MG TAB PO SCH ×2 (08:12→20:27)
[2018-03-10] MEDS: INSULIN DETEMIR 100 UNITS/ML VIAL SQ SCH ×2 (08:13→20:28)
[2018-03-10] MEDS: SODIUM CHLORIDE 0.9% FLUSH 10 ML FLUSH IV FLUSH SCH ×2 (08:13→20:28)
[2018-03-10] MEDS ORDERED: INSULIN DETEMIR 100 UNITS/ML VIAL SQ SCH (09:00)
--- NOTE | 2018-03-10 10:42 | HHI.PR ---
Subjective Remarks The patient was resting in bed comfortably. Her mother was at the bedside. The patient tolerated breakfast. She said she had some aches and pains in multiple joints. She indicated that the pain medications were making her a little sleepy. Discussed with nursing at the bedside. Objective Vitals Vital Signs Date Time Temp Pulse Resp B/P (MAP) Pulse Ox O2 Delivery O2 Flow Rate FiO2 03/10/18 10:00 91 03/10/18 08:18 100 03/10/18 08:00 97.9 83 18 132/85 (101) 100 03/10/18 08:00 87 03/10/18 06:00 77 03/10/18 04:00 84 03/10/18 04:00 98.7 84 20 145/94 (111) 100 03/10/18 02:00 81 03/10/18 00:00 98.7 84 21 132/73 (92) 100 03/10/18 00:00 84 03/09/18 22:00 81 03/09/18 20:00 98.3 82 20 126/77 (93) 100 03/09/18 20:00 82 03/09/18 19:40 100 21 03/09/18 16:00 98.0 80 19 130/79 (96) 100 03/09/18 12:00 98.0 81 20 134/84 (101) 100 I/O 03/09/18 03/09/18 03/09/18 03/10/18 03/10/18 03/10/18 07:00 15:00 23:00 07:00 15:00 23:00 Intake Total 1350 ml 2215 ml 1480 ml Output Total 400 ml 1025 ml 990 ml Balance 950 ml 1190 ml 490 ml Intake Oral 350 ml 960 ml 480 ml IV Total 1000 ml 1255 ml 1000 ml Output Urine Total 400 ml 1025 ml 990 ml # Bowel Movements 0 0 Result Diagram: 03/09/18 1104 03/09/18 1104 Imaging Last Impressions Chest X-Ray 03/08/18 7204 Signed Impressions: Service Date/Time: Thursday, March 08, 2018 04:44 - CONCLUSION: No infiltrates seen. Submaximal inspiration. Andrew Lira MD Objective Remarks GENERAL: This is a well-nourished, well-developed patient, in no apparent distress. SKIN: No rashes, ecchymoses or lesions. Cool and dry. HEAD: Atraumatic. Normocephalic. No temporal or scalp tenderness. EYES: Pupils equal round and reactive. Extraocular motions intact. No scleral icterus. No injection or drainage. ENT: Nose without bleeding, purulent drainage or septal hematoma. Throat without erythema, tonsillar hypertrophy or exudate. Uvula midline. Airway patent. NECK: Trachea midline. No JVD or lymphadenopathy. Supple, nontender, no meningeal signs. CARDIOVASCULAR: Regular rate and rhythm without murmurs, gallops, or rubs. S1- S2 no S3 or S4 RESPIRATORY: Clear to auscultation. Breath sounds equal bilaterally. No wheezes , rales, or rhonchi. GASTROINTESTINAL: Abdomen soft, non-tender, nondistended. No hepato-splenomegaly , or palpable masses. No guarding. MUSCULOSKELETAL: Extremities without clubbing, cyanosis, or edema. No joint effusion, or edema noted. NEUROLOGICAL: Awake and alert. Cranial nerves II through XII intact. Motor and sensory grossly within normal limits. Normal speech. PSYCH: Mood and affect appropriate. Medications and IVs Current Medications Medications (Trade) Dose Ordered Sig/[facility] Route Start Time Stop Time Status Last Admin (Norvasc) 5 mg DAILY PO 03/08/18 09:15 03/10/18 08:12 (Ferrous Sulfate) 325 mg DAILY PO 03/08/18 09:15 03/10/18 08:11 (Diflucan) 200 mg DAILY PO 03/08/18 09:15 03/10/18 08:12 (Plaquenil) 200 mg DAILY PO 03/08/18 09:15 03/10/18 08:11 (Protonix) 20 mg BID PO 03/08/18 09:15 03/10/18 08:11 (NS Flush) 2 ml UNSCH PRN IV FLUSH 03/08/18 11:00 (NS Flush) 2 ml BID IV FLUSH 03/08/18 21:00 03/10/18 08:13 (Tylenol) 650 mg Q4H PRN PO 03/08/18 11:00 (Zofran Inj) 4 mg Q6H PRN IVP 03/08/18 11:00 (Reglan Inj) 5 mg Q6H PRN IV PUSH 03/08/18 11:00 (Lovenox Inj) 40 mg Q24H SQ 03/08/18 12:00 03/09/18 11:43 (Tylenol) 650 mg Q6H PRN PO 03/08/18 11:00 (Percocet 5-325 Mg) 1 tab Q6H PRN PO 03/08/18 11:00 (Percocet 10-325 Mg) 1 tab Q6H PRN PO 03/08/18 11:00 03/09/18 03:59 (Morphine Inj) 2 mg Q3H PRN IV PUSH 03/08/18 11:00 (Morphine Inj) 4 mg Q3H PRN IV PUSH 03/08/18 11:00 (Narcan Inj) 0.4 mg UNSCH PRN IV PUSH 03/08/18 11:00 (Ursula-Colace) 1 tab BID PO 03/08/18 21:00 03/10/18 08:12 (Milk Of Magnesia Liq) 30 ml Q12H PRN PO 03/08/18 11:00 (Senokot) 17.2 mg Q12H PRN PO 03/08/18 11:00 (Dulcolax Supp) 10 mg DAILY PRN RECTAL 03/08/18 11:00 (Lactulose Liq) 30 ml DAILY PRN PO 03/08/18 11:00 (NovoLOG SUPPLEMENTAL SCALE) 1 ACHS SLIDING SCALE SQ 03/08/18 18:15 03/10/18 08:00 (D50w (Vial) Inj) 50 ml UNSCH PRN IV PUSH 03/08/18 18:15 (Glucagon Inj) 1 mg UNSCH PRN OTHER 03/08/18 18:15 Sodium Chloride 1,000 ml @ 125 mls/hr Q8H IV 03/09/18 10:30 03/10/18 04:15 (NovoLOG INJ) 3 units TIDAC SQ 03/09/18 12:00 03/10/18 08:12 (Levemir Inj) 10 units HS SQ 03/10/18 21:00 (Levemir Inj) 20 units DAILY SQ 03/11/18 09:00 UNV (Deltasone) 20 mg DAILY PO 03/11/18 09:00 UNV (Levemir Inj) 5 units ONCE SQ 03/10/18 10:30 UNV A/P Problem List: (1) Hyperkalemia ICD Code: E87.5 - Hyperkalemia (2) Hyperglycemia ICD Code: R73.9 - Hyperglycemia, unspecified Status: Acute (3) Prednisone adverse reaction ICD Code: T38.0X5A - Adverse effect of glucocorticoids and synthetic analogues , initial encounter Status: Acute (4) SLE (systemic lupus erythematosus) ICD Code: M32.9 - Systemic lupus erythematosus, unspecified (5) Thrombocytosis ICD Code: D47.3 - Essential (hemorrhagic) thrombocythemia Status: Resolved (6) Hypertension ICD Code: I10 - Essential (primary) hypertension Status: Chronic (7) Nutrition, metabolism, and development symptoms ICD Code: R63.8 - Other symptoms and signs concerning food and fluid intake Status: Acute Assessment and Plan Hyperglycemia/ HONK The pt has a history of borderline diabetes. Exacerbated by prednisone. She did not have an anion gap. S/p insulin gtt. Blood glucose has been fluctuating widely. - We will check a hemoglobin A1c. - continue Levemir 20 units daily, 10 units HS and preprandial insulin along with a sliding scale. Adjust regimen as needed. Glucose checks q4h at this time. - Diabetic education. - wean prednisone. Hyponatremia S/t hyperglycemia. - treatment as above. - S/p IV fluids. Renal insufficiency/ Hyperkalemia S/t above. S/p Kayexalate and IV fluids. - resolved. Lupus Follows with rheumatology. - continue on prednisone and Plaquenil. Wean prednisone to 20 mg daily and monitor. - outpt follow-up with rheumatology. Anemia MCV is low. Appears to be anemia of chronic disease. - follow CBC and transfuse as needed. DVT prophylaxis: Lovenox Discharge Planning Transfer to floor Parish Falk DO Mar 10, 2018 10:42
[2018-03-10] MEDS ORDERED: ACETAMINOPHEN/HYDROcodone 325 MG/5 MG TAB PO PRN (10:45)
[2018-03-10] MEDS ORDERED: INSULIN DETEMIR 100 UNITS/ML VIAL SQ ONE (10:45)
[2018-03-10] MEDS: ENOXAPARIN SODIUM 40 MG/0.4 ML SYRINGE SQ SCH (11:37)
[2018-03-10 15:59] LABS: AUTOMATED NEUTROPHIL # 6.6 TH/MM3 (1.8-7.7); BASOPHIL % 0.3 % (0.0-2.0); HEMATOCRIT 33.2 % (35.0-46.0); HEMOGLOBIN 10.6 GM/DL (11.6-15.3); LYMPHOCYTE # 0.9 TH/MM3 (1.0-4.8); MEAN CELL VOLUME 67.6 FL (80.0-100.0); MEAN CORPUSCULAR HEMOGLOBIN 21.6 PG (27.0-34.0); MEAN PLATELET VOLUME 9.4 FL (7.0-11.0); MONO % 2.5 % (0.0-8.0); MONOCYTE # 0.2 TH/MM3 (0-0.9); NEUT % 85.2 % (16.0-70.0); PLATELET COUNT 269 TH/MM3 (150-450); RED BLOOD COUNT 4.92 MIL/MM3 (4.00-5.30); RED CELL DISTRIBUTION WIDTH 30.4 % (11.6-17.2); WHITE BLOOD COUNT 7.8 TH/MM3 (4.0-11.0)
[2018-03-10 16:16] LABS: ALBUMIN 2.4 GM/DL (3.4-5.0); AST (GOT) 31 U/L (15-37); BICARBONATE 21.8 MEQ/L (21.0-32.0); BLOOD UREA NITROGEN 20 MG/DL (7-18); CALCIUM 8.4 MG/DL (8.5-10.1); CHLORIDE 103 MEQ/L (98-107); CREATININE 0.81 MG/DL (0.50-1.00); GLOMERULAR FILTRATION RATE 104 ML/MIN (>89); GLUCOSE,RANDOM 371 MG/DL (74-106); MAGNESIUM 1.7 MG/DL (1.5-2.5); SODIUM (NA) 135 MEQ/L (136-145)
[2018-03-10 16:17] LABS: ALT (GPT) 33 U/L (10-53); PHOSPHORUS 2.8 MG/DL (2.5-4.9)
[2018-03-10 16:20] LABS: ALKALINE PHOSPHATASE 172 U/L (45-117); TOTAL BILIRUBIN ADULT 0.2 MG/DL (0.2-1.0); TOTAL PROTEIN 6.4 GM/DL (6.4-8.2)
[2018-03-10 16:43] LABS: OVALOCYTES 1+ (NORMAL); TEARDROP RBCS 1+ (NORMAL)
[2018-03-11] MEDS: ACETAMINOPHEN 325 MG TAB PO PRN (04:22)
[2018-03-11 08:00] VITALS: BP 131/76; PULSE 72; RESP 18; TEMP 98.5; O2SAT 100
[2018-03-11] MEDS: INSULIN ASPART SUPPLEMENTAL SCALE SQ SCH ×4 (08:00→21:32)
[2018-03-11 08:07] LABS: HEMATOCRIT 31.5 % (35.0-46.0); HEMOGLOBIN 10.2 GM/DL (11.6-15.3); MEAN CELL VOLUME 67.7 FL (80.0-100.0); MEAN CORPUSCULAR HEMOGLOBIN 21.9 PG (27.0-34.0); MEAN CORPUSCULAR HGB CONC 32.4 % (32.0-36.0); MEAN PLATELET VOLUME 9.2 FL (7.0-11.0); PLATELET COUNT 219 TH/MM3 (150-450); RED BLOOD COUNT 4.65 MIL/MM3 (4.00-5.30); RED CELL DISTRIBUTION WIDTH 30.7 % (11.6-17.2); WHITE BLOOD COUNT 6.6 TH/MM3 (4.0-11.0)
[2018-03-11 08:10] LABS: BICARBONATE 24.5 MEQ/L (21.0-32.0); CREATININE 0.65 MG/DL (0.50-1.00); MAGNESIUM 1.6 MG/DL (1.5-2.5)
[2018-03-11] MEDS: INSULIN DETEMIR 100 UNITS/ML VIAL SQ SCH ×2 (08:44→21:31)
[2018-03-11] MEDS: INSULIN ASPART 1,000 UNITS/10 ML VIAL SQ SCH ×3 (08:44→17:20)
[2018-03-11] MEDS: amLODIPine BESYLATE 5 MG TAB PO SCH (08:45)
[2018-03-11] MEDS: FERROUS SULFATE 325 MG (65 MG ELEMENTAL IRON) TAB PO SCH (08:45)
[2018-03-11] MEDS: predniSONE 20 MG TAB PO SCH (08:45)
[2018-03-11] MEDS: HYDROXYCHLOROQUINE SULFATE 200 MG TAB PO SCH (08:45)
[2018-03-11] MEDS: SODIUM CHLORIDE 0.9% FLUSH 10 ML FLUSH IV FLUSH SCH ×2 (08:46→21:32)
[2018-03-11] MEDS: PANTOPRAZOLE SOD 20 MG DELAYED RELEASE TAB PO SCH ×2 (08:46→21:32)
[2018-03-11] MEDS: DOCUSATE SODIUM 50 MG/SENNA 8.6 MG TAB PO SCH ×2 (08:46→21:32)
[2018-03-11] MEDS: MAGNESIUM SULFATE 1 GM PREMIX 100 ML IV SCH ×2 (08:55→11:12)
[2018-03-11] MEDS ORDERED: POTASSIUM CHLORIDE 25 MEQ EFFERVESCENT TAB PO ONE (09:00)
--- NOTE | 2018-03-11 09:35 | HHI.PR ---
Subjective Remarks The patient was resting comfortably in bed. She said her pain was still there but Tylenol has been helping. She has been tolerating her diet. She had no other acute complaints. Discussed with nursing at the bedside. Objective Vitals Vital Signs Date Time Temp Pulse Resp B/P (MAP) Pulse Ox O2 Delivery O2 Flow Rate FiO2 03/11/18 08:00 98.5 72 18 131/76 (94) 100 03/10/18 23:33 98.5 86 15 160/92 (114) 98 03/10/18 19:54 98.8 89 15 142/81 (101) 99 03/10/18 16:00 98.4 86 18 135/78 (97) 99 03/10/18 12:55 96.2 89 18 140/82 (101) 100 03/10/18 12:00 90 03/10/18 10:00 91 I/O 03/10/18 03/10/18 03/10/18 03/11/18 03/11/18 03/11/18 07:00 15:00 23:00 07:00 15:00 23:00 Intake Total 1480 ml 1410 ml 900 ml 100 ml Output Total 990 ml 910 ml 1 ml Balance 490 ml 500 ml 899 ml 100 ml Intake Oral 480 ml 520 ml 900 ml 100 ml IV Total 1000 ml 890 ml Output Urine Total 990 ml 910 ml 1 ml # Voids 2 1 # Bowel Movements 0 1 Result Diagram: 03/11/18 0651 03/11/18 0651 Imaging Last Impressions Chest X-Ray 03/08/18 0433 Signed Impressions: Service Date/Time: Thursday, March 08, 2018 04:44 - CONCLUSION: No infiltrates seen. Submaximal inspiration. Andrew Lira MD Objective Remarks GENERAL: This is a well-nourished, well-developed patient, in no apparent distress. SKIN: No rashes, ecchymoses or lesions. Cool and dry. HEAD: Atraumatic. Normocephalic. No temporal or scalp tenderness. EYES: Pupils equal round and reactive. Extraocular motions intact. No scleral icterus. No injection or drainage. ENT: Nose without bleeding, purulent drainage or septal hematoma. Throat without erythema, tonsillar hypertrophy or exudate. Uvula midline. Airway patent. NECK: Trachea midline. No JVD or lymphadenopathy. Supple, nontender, no meningeal signs. CARDIOVASCULAR: Regular rate and rhythm with grade 1 systolic murmur appreciated. RESPIRATORY: Clear to auscultation. Breath sounds equal bilaterally. No wheezes , rales, or rhonchi. GASTROINTESTINAL: Abdomen soft, non-tender, nondistended. No hepato-splenomegaly , or palpable masses. No guarding. MUSCULOSKELETAL: Extremities without clubbing, cyanosis, or edema. No joint effusion, or edema noted. NEUROLOGICAL: Awake and alert. Cranial nerves II through XII intact. Motor and sensory grossly within normal limits. Normal speech. PSYCH: Mood and affect appropriate. Medications and IVs Current Medications Medications (Trade) Dose Ordered Sig/[facility] Route Start Time Stop Time Status Last Admin (Norvasc) 5 mg DAILY PO 03/08/18 09:15 03/11/18 08:45 (Ferrous Sulfate) 325 mg DAILY PO 03/08/18 09:15 03/11/18 08:45 (Plaquenil) 200 mg DAILY PO 03/08/18 09:15 03/11/18 08:45 (Protonix) 20 mg BID PO 03/08/18 09:15 03/11/18 08:46 (NS Flush) 2 ml UNSCH PRN IV FLUSH 03/08/18 11:00 (NS Flush) 2 ml BID IV FLUSH 03/08/18 21:00 03/11/18 08:46 (Tylenol) 650 mg Q4H PRN PO 03/08/18 11:00 (Zofran Inj) 4 mg Q6H PRN IVP 03/08/18 11:00 (Reglan Inj) 5 mg Q6H PRN IV PUSH 03/08/18 11:00 (Lovenox Inj) 40 mg Q24H SQ 03/08/18 12:00 03/10/18 11:37 (Tylenol) 650 mg Q6H PRN PO 03/08/18 11:00 03/11/18 04:22 (Morphine Inj) 2 mg Q3H PRN IV PUSH 03/08/18 11:00 (Morphine Inj) 4 mg Q3H PRN IV PUSH 03/08/18 11:00 (Narcan Inj) 0.4 mg UNSCH PRN IV PUSH 03/08/18 11:00 (Ursula-Colace) 1 tab BID PO 03/08/18 21:00 03/11/18 08:46 (Milk Of Magnesia Liq) 30 ml Q12H PRN PO 03/08/18 11:00 (Senokot) 17.2 mg Q12H PRN PO 03/08/18 11:00 (Dulcolax Supp) 10 mg DAILY PRN RECTAL 03/08/18 11:00 (Lactulose Liq) 30 ml DAILY PRN PO 03/08/18 11:00 (NovoLOG SUPPLEMENTAL SCALE) 1 ACHS SLIDING SCALE SQ 03/08/18 18:15 03/10/18 20:28 (D50w (Vial) Inj) 50 ml UNSCH PRN IV PUSH 03/08/18 18:15 (Glucagon Inj) 1 mg UNSCH PRN OTHER 03/08/18 18:15 (NovoLOG INJ) 3 units TIDAC SQ 03/09/18 12:00 03/11/18 08:44 (Levemir Inj) 10 units HS SQ 03/10/18 21:00 03/10/18 20:28 (Levemir Inj) 20 units DAILY SQ 03/11/18 09:00 03/11/18 08:44 (Deltasone) 20 mg DAILY PO 03/11/18 09:00 03/11/18 08:45 ([place] 5-325 Mg) 1 tab Q4H PRN PO 03/10/18 10:45 Magnesium Sulfate/ Dextrose 100 ml @ 100 mls/hr Q1H IV 03/11/18 09:00 03/11/18 10:59 03/11/18 08:55 A/P Problem List: (1) Hyperkalemia ICD Code: E87.5 - Hyperkalemia (2) Hyperglycemia ICD Code: R73.9 - Hyperglycemia, unspecified Status: Acute (3) Prednisone adverse reaction ICD Code: T38.0X5A - Adverse effect of glucocorticoids and synthetic analogues , initial encounter Status: Acute (4) SLE (systemic lupus erythematosus) ICD Code: M32.9 - Systemic lupus erythematosus, unspecified (5) Thrombocytosis ICD Code: D47.3 - Essential (hemorrhagic) thrombocythemia Status: Resolved (6) Hypertension ICD Code: I10 - Essential (primary) hypertension Status: Chronic (7) Nutrition, metabolism, and development symptoms ICD Code: R63.8 - Other symptoms and signs concerning food and fluid intake Status: Acute Assessment and Plan Hyperglycemia/ HONK The pt has a history of borderline diabetes. Exacerbated by prednisone. She did not have an anion gap. S/p insulin gtt. Blood glucose has been fluctuating widely. - We will check a hemoglobin A1c. Still pending. - continue Levemir 20 units daily, 10 units HS and preprandial insulin along with a sliding scale. Adjust regimen as needed. Improved. - Diabetic education. - wean prednisone. Hyponatremia S/t hyperglycemia. - Resolved. Renal insufficiency/ Hyperkalemia S/t above. S/p Kayexalate and IV fluids. - resolved. Lupus Follows with rheumatology. Has joint pain and is weak. - continue on prednisone and Plaquenil. Wean prednisone to 20 mg daily and monitor. - outpt follow-up with rheumatology. 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 Sher ([phone]). - PT/ OT. Anemia MCV is low. Appears to be anemia of chronic disease. - follow CBC and transfuse as needed. DVT prophylaxis: Lovenox Discharge Planning Have PT reevaluate pt as rehab was initially recommended. Anticipate d/c in 1-2 days Parish Falk DO Mar 11, 2018 09:34
[2018-03-11 10:35] LABS: HEMOGLOBIN A1C 10.1 % (4.3-6.0)
[2018-03-11 12:00] VITALS: BP 127/84; PULSE 87; RESP 18; TEMP 98.4; O2SAT 100
[2018-03-11] MEDS: ENOXAPARIN SODIUM 40 MG/0.4 ML SYRINGE SQ SCH (12:01)
[2018-03-11 16:03] VITALS: BP 122/71; PULSE 89; RESP 18; TEMP 97.8; O2SAT 100
[2018-03-11 20:00] VITALS: BP 124/75; PULSE 94; RESP 17; TEMP 98.6; O2SAT 99
[2018-03-11] MEDS ORDERED: MORPHINE SULFATE 4 MG/ML INJ IV PUSH PRN (20:15)
[2018-03-12 00:01] VITALS: BP 126/74; PULSE 88; RESP 17; TEMP 98.6; O2SAT 100
[2018-03-12 07:40] VITALS: BP 128/82; PULSE 85; RESP 18; TEMP 98.5; O2SAT 100
[2018-03-12] MEDS: ACETAMINOPHEN 325 MG TAB PO PRN (08:46)
[2018-03-12] MEDS: HYDROXYCHLOROQUINE SULFATE 200 MG TAB PO SCH (08:46)
[2018-03-12] MEDS: amLODIPine BESYLATE 5 MG TAB PO SCH (08:47)
[2018-03-12] MEDS: FERROUS SULFATE 325 MG (65 MG ELEMENTAL IRON) TAB PO SCH (08:47)
[2018-03-12] MEDS: PANTOPRAZOLE SOD 20 MG DELAYED RELEASE TAB PO SCH (08:47)
[2018-03-12] MEDS: INSULIN ASPART 1,000 UNITS/10 ML VIAL SQ SCH ×2 (08:47→12:48)
[2018-03-12] MEDS: INSULIN ASPART SUPPLEMENTAL SCALE SQ SCH ×2 (08:47→12:48)
[2018-03-12] MEDS: predniSONE 20 MG TAB PO SCH (08:47)
[2018-03-12] MEDS: INSULIN DETEMIR 100 UNITS/ML VIAL SQ SCH (08:48)
[2018-03-12] MEDS: SODIUM CHLORIDE 0.9% FLUSH 10 ML FLUSH IV FLUSH SCH (08:50)
[2018-03-12] MEDS: DOCUSATE SODIUM 50 MG/SENNA 8.6 MG TAB PO SCH (08:50)
[2018-03-12 11:29] VITALS: BP 128/70; PULSE 92; RESP 18; TEMP 98.3; O2SAT 100
[2018-03-12] MEDS: ENOXAPARIN SODIUM 40 MG/0.4 ML SYRINGE SQ SCH (12:48)
--- NOTE | 2018-03-12 14:39 | HHI.PR ---
Subjective Remarks Follow up [facility] 03/12/18-patient seen and examined; currently BG controlled and she denies any nausea or emesis with PO intake Objective Vitals Vital Signs Date Time Temp Pulse Resp B/P (MAP) Pulse Ox O2 Delivery O2 Flow Rate FiO2 03/12/18 11:29 98.3 92 18 128/70 (89) 100 03/12/18 09:46 18 03/12/18 07:40 98.5 85 18 128/82 (97) 100 03/12/18 00:01 98.6 88 17 126/74 (91) 100 03/11/18 20:00 98.6 94 17 124/75 (91) 99 03/11/18 16:03 97.8 89 18 122/71 (88) 100 I/O 03/11/18 03/11/18 03/11/18 03/12/18 03/12/18 03/12/18 07:00 15:00 23:00 07:00 15:00 23:00 Intake Total 100 ml 1200 ml 240 ml Balance 100 ml 1200 ml 240 ml Intake Oral 100 ml 1000 ml 240 ml IV Total 200 ml # Voids 1 3 3 # Bowel Movements 1 0 Result Diagram: 03/11/18 0651 03/11/18 0651 Imaging Last Impressions Chest X-Ray 03/08/18 0433 Signed Impressions: Service Date/Time: Thursday, March 08, 2018 04:44 - CONCLUSION: No infiltrates seen. Submaximal inspiration. Andrew Lira MD Objective Remarks GENERAL: NAD SKIN: Warm and dry. HEAD: Normocephalic. EYES: No scleral icterus. No injection or drainage. NECK: Supple, trachea midline. No JVD or lymphadenopathy. CARDIOVASCULAR: Regular rate and rhythm without murmurs, gallops, or rubs. RESPIRATORY: Breath sounds equal bilaterally. No accessory muscle use. GASTROINTESTINAL: Abdomen soft, non-tender, nondistended. MUSCULOSKELETAL: No cyanosis, or edema. BACK: Nontender without obvious deformity. No CVA tenderness. Procedures none A/P Problem List: (1) Hyperkalemia ICD Code: E87.5 - Hyperkalemia Status: Resolved (2) Hyperglycemia ICD Code: R73.9 - Hyperglycemia, unspecified Status: Acute (3) Prednisone adverse reaction ICD Code: T38.0X5A - Adverse effect of glucocorticoids and synthetic analogues , initial encounter Status: Acute (4) SLE (systemic lupus erythematosus) ICD Code: M32.9 - Systemic lupus erythematosus, unspecified (5) Thrombocytosis ICD Code: D47.3 - Essential (hemorrhagic) thrombocythemia Status: Resolved (6) Hypertension ICD Code: I10 - Essential (primary) hypertension Status: Chronic (7) Nutrition, metabolism, and development symptoms ICD Code: R63.8 - Other symptoms and signs concerning food and fluid intake Status: Acute Assessment and Plan Hyperglycemia/ HONK The pt has a history of borderline diabetes. Exacerbated by prednisone. She did not have an anion gap. S/p insulin gtt. Blood glucose has been fluctuating widely. - Hemoglobin A1c of 10.1. - continue Levemir 20 units daily, 10 units HS and preprandial insulin along with a sliding scale. - wean prednisone. Hyponatremia S/t hyperglycemia. - Resolved. Renal insufficiency/ Hyperkalemia S/t above. S/p Kayexalate and IV fluids. - resolved. Lupus Follows with rheumatology. - continue on prednisone and Plaquenil. Wean prednisone to 20 mg daily and monitor. - outpt follow-up with rheumatology, Dr. Sher ([phone]). - PT/ OT. Anemia of chronic disease. - follow CBC and transfuse as needed. DVT prophylaxis: William Luu MD March 12, 2018 14:39
[2018-03-12] MEDS ORDERED: NOVOLOGP2 SQ (14:43)
[2018-03-12] MEDS ORDERED: NOVOLOGSS SQ (14:43)
[2018-03-12] MEDS ORDERED: LEVEMIR SQ ×2 (14:43)
[2018-03-12] MEDS ORDERED: INSU-126 (14:47)
[2018-03-12] MEDS ORDERED: BAYEKIT (14:47)
[2018-03-12] MEDS ORDERED: BLOOD GLUCOSE T1 TES (14:47)
[2018-03-12] MEDS ORDERED: [UNRECOGNIZED DRUG - CODE] (14:47)
--- NOTE | 2018-03-12 14:49 | HHI.DS ---
Discharge Summary Admission Date Mar 08, 2018 at 07:02 Discharge Date: March 12, 2018 Admitting Diagnosis hyperglycemia due to prednisone CORTISOL (1) Hyperkalemia ICD Code: E87.5 - Hyperkalemia Diagnosis: Principal Status: Resolved (2) Hyperglycemia ICD Code: R73.9 - Hyperglycemia, unspecified Diagnosis: Principal Status: Acute (3) Prednisone adverse reaction ICD Code: T38.0X5A - Adverse effect of glucocorticoids and synthetic analogues , initial encounter Diagnosis: Principal Status: Acute (4) SLE (systemic lupus erythematosus) ICD Code: M32.9 - Systemic lupus erythematosus, unspecified Diagnosis: Secondary (5) Thrombocytosis ICD Code: D47.3 - Essential (hemorrhagic) thrombocythemia Diagnosis: Secondary Status: Resolved (6) Hypertension ICD Code: I10 - Essential (primary) hypertension Diagnosis: Secondary Status: Chronic (7) Nutrition, metabolism, and development symptoms ICD Code: R63.8 - Other symptoms and signs concerning food and fluid intake Diagnosis: Secondary Status: Acute Procedures none Brief History - From Admission Patient is a 27-year-old -[place] female. Recently diagnosed with lupus. Was admitted on February 18 was found to be very anemic. She had been transfused and was given antibiotics for pneumonia was placed on prednisone. The patient saw a Dr. Taylor of rheumatology, and her prednisone was increased. Patient is now having increased frequency of urination and thirst and body aches. Was found to be severely hyperglycemic with a blood sugar over thousand will be admitted and will be placed on an insulin drip. Also had some bilateral hand tingling and was also found to have hyperkalemia. Patient will be admitted to the ICU for an insulin drip due to the severe hyperglycemia and probable new onset diabetes mellitus CBC/BMP: 03/11/18 0651 03/11/18 0651 Significant Findings Laboratory Tests Test 03/10/18 14:46 03/11/18 06:51 Hemoglobin 10.6 GM/DL (11.6-15.3) 10.2 GM/DL (11.6-15.3) Hematocrit 33.2 % (35.0-46.0) 31.5 % (35.0-46.0) Mean Corpuscular Volume 67.6 FL (80.0-100.0) 67.7 FL (80.0-100.0) Mean Corpuscular Hemoglobin 21.6 PG (27.0-34.0) 21.9 PG (27.0-34.0) Red Cell Distribution Width 30.4 % (11.6-17.2) 30.7 % (11.6-17.2) Neutrophils (%) (Auto) 85.2 % (16.0-70.0) Lymphocytes # (Auto) 0.9 TH/MM3 (1.0-4.8) Tear Drop Cells 1+ (NORMAL) Ovalocytes 1+ (NORMAL) Blood Urea Nitrogen 20 MG/DL (7-18) 20 MG/DL (7-18) Random Glucose 371 MG/DL (74-106) 148 MG/DL (74-106) Albumin 2.4 GM/DL (3.4-5.0) Calcium Level 8.4 MG/DL (8.5-10.1) 8.0 MG/DL (8.5-10.1) Alkaline Phosphatase 172 U/L (45-117) Sodium Level 135 MEQ/L (136-145) Imaging Last Impressions Chest X-Ray 03/08/18 0433 Signed Impressions: Service Date/Time: Thursday, March 08, 2018 04:44 - CONCLUSION: No infiltrates seen. Submaximal inspiration. Andrew Lira MD PE at Discharge GENERAL: NAD SKIN: Warm and dry. HEAD: Normocephalic. EYES: No scleral icterus. No injection or drainage. NECK: Supple, trachea midline. No JVD or lymphadenopathy. CARDIOVASCULAR: Regular rate and rhythm without murmurs, gallops, or rubs. RESPIRATORY: Breath sounds equal bilaterally. No accessory muscle use. GASTROINTESTINAL: Abdomen soft, non-tender, nondistended. MUSCULOSKELETAL: No cyanosis, or edema. BACK: Nontender without obvious deformity. No CVA tenderness. Hospital Course while in the hospital, patient was treated for: Hyperglycemia/ HONK The pt has a history of borderline diabetes. Exacerbated by prednisone. She did not have an anion gap. S/p insulin gtt. Blood glucose has been fluctuating widely. - Hemoglobin A1c of 10.1. - Treated with Levemir 20 units daily, 10 units HS and preprandial insulin along with a sliding scale. Hyponatremia S/t hyperglycemia. - Resolved. Renal insufficiency/ Hyperkalemia S/t above. S/p Kayexalate and IV fluids. - resolved. Lupus Follows with rheumatology. - Treated with prednisone and Plaquenil. - outpt follow-up with rheumatology, Dr. Sher ([phone]). - PT/ OT. Anemia of chronic disease. - follow CBC and transfuse as needed. DVT prophylaxis: Lovenox Pt Condition on Discharge: Good Discharge Disposition: Discharge Home Discharge Time: <= 30 minutes Discharge Instructions DIET: Follow Instructions for: Diabetic Diet Activities you can perform: Regular-No Restrictions Follow up Referrals: PCP Follow-up - 1 Week New Medications: Faye Contour Blood Gluco W/Device (Faye Contour Blood Gluco W/Device) 1 Kit Kit KIT .XX DIRECTED for Blood Sugar Management, #1 0 Refills Blood Glucose Test Strips (Blood Glucose Test Strips) Strips Strip EA .XX DIRECTED for Blood Sugar Management, #1 3 Refills Easy Comfort Insulin Syr 31G X 5/16" 0.5 ml (Easy Comfort Insulin Syr 31G X 5/16 " 0.5 ml) 31 Gauge X 5/16" Mis EA .XX DIRECTED for Blood Sugar Management, #1 3 Refills Insulin Pen Needle/Easy Comfort 31G X 6mm (Easy Comfort Pen [place] 31G X 6 mm) 31 Gauge X 1/4" Mis BOX .XX DIRECTED for Blood Sugar Management, #1 3 Refills Insulin Aspart Inj (Novolog Inj) 1,000 Unit/10 Ml Vial 3 UNITS SQ TIDAC for Blood Sugar Management, #100 INJECTION 11 Refills Insulin Aspart Inj (Novolog Inj) 100 Unit/Ml Inj 1 UNIT SQ ACHS SLIDING SCALE for Blood Sugar Management, #100 INJECTION 11 Refills Insulin Detemir Inj (Levemir Inj) 1,000 unit/ 10 ML Vial 20 UNITS SQ DAILY for Blood Sugar Management, #100 INJECTION 11 Refills Do not mix with any other Insulin. Insulin Detemir Inj (Levemir Inj) 1,000 unit/ 10 ML Vial 10 UNITS SQ HS for Blood Sugar Management, #100 INJECTION 11 Refills Do not mix with any other Insulin. Continued Medications: Amlodipine (Norvasc) 5 Mg Tab 5 MG PO DAILY for Blood Pressure Management, #30 TAB 0 Refills Ferrous Sulfate (Ferrous Sulfate) 325 Mg (65 Mg Iron) Tablet 325 MG PO DAILY for Nutritional Supplement, #30 TAB 0 Refills Hydroxychloroquine (Plaquenil) 200 Mg Tab 200 MG PO DAILY, #30 TAB 0 Refills Take with food Prednisone (Prednisone) 20 Mg Tab 20 MG PO BID, TAB 0 Refills Discontinued Medications: Fluconazole (Diflucan) 200 Mg Tab 200 MG PO DAILY, #7 TAB Omeprazole (Omeprazole) 20 Mg Tab 20 MG PO BID, #30 TAB 0 Refills William Drummond MD March 12, 2018 14:49
== END 2018-03-12 17:18 | disposition home or self-care (01) | DRG 641 ==
LOC: NEPE 03:23 → NEDA 07:02 → HIMN 12:00 → N06B 03-10 12:44
PROVIDERS: ADMIT Hospitalist; ATTEND Hospitalist
DX: R73.9 Hyperglycemia, unspecified (principal); M32.9 Systemic lupus erythematosus, unspecified; E87.1 Hypo-osmolality and hyponatremia; E87.5 Hyperkalemia; T38.0X5A Adverse effect of glucocorticoids and synthetic analogues, initial encounter; D47.3 Essential (hemorrhagic) thrombocythemia; I10 Essential (primary) hypertension; K21.9 Gastro-esophageal reflux disease without esophagitis
CPT/HCPCS: 71046; 80048; 80053; 81001; 82010; 82533; 82550; 82607; 82728; 82746; 82805; 82947; 82948; 83036; 83540; 83550; 83735; 84100; 84132; 84439; 84443; 84484; 85025; 85027; 87641; 94150; 99285; J1650; J1815; J1817; J3475; J7030; J7042; J7512

== ENCOUNTER 2018-04-13 11:50 | Emergency (ER) | payer MEDICAID ==
[~2018-04-13] VITALS: Ht 162.6 cm; Wt 82.0 kg
[~2018-04-13 11:50] MED LIST changes: -AMLO10 PO; +AMLO5 PO; +BAYEKIT; +BLOOD GLUCOSE T1 TES; -DIFL200T PO; +INSU-126; +LEVEMIR SQ; +NOVOLOGP2 SQ; +NOVOLOGSS SQ; +PLAQ200T PO; -ZOFR4TAB PO; +[UNRECOGNIZED DRUG - CODE]
[2018-04-13 11:58] VITALS: BP 167/104; PULSE 116; RESP 21; TEMP 99.2; O2SAT 100
[2018-04-13] MEDS ORDERED: SODIUM CHLOR 0.9% 1000 ML INJ 1,000 ML IV ONE ×3 (12:15→14:00)
[2018-04-13] MEDS ORDERED: AZAT50 PO (12:19)
[2018-04-13] MEDS ORDERED: OMEP20TA93 PO (12:19)
[2018-04-13] MEDS ORDERED: GABA300C5 PO (12:19)
[2018-04-13] MEDS ORDERED: AMLO10TA2 PO (12:19)
--- NOTE | 2018-04-13 12:22 | RADRPT ---
EXAM DATE: 04/13/2018 12:19 PM EDT AGE/SEX: 27 years / Female INDICATIONS: Chest pain and dizziness. CLINICAL DATA: This is the patient's initial encounter. Patient reports that signs and symptoms have been present for 2 days and indicates a pain score of 5/10. MEDICAL/SURGICAL HISTORY: None. None. COMPARISON: [facility] [place], 01/15/[place]. . FINDINGS: AP semiupright portable view of the chest demonstrates hypoinflation of the lungs. No evidence of air space abnormality. Heart size appears normal. Pulmonary vasculature is normal. Osseous structures are intact. CONCLUSION: Hypoinflation of the lungs. No evidence of acute cardiopulmonary disease. Electronically signed by: Shy English MD 04/13/2018 12:20 PM EDT
[2018-04-13 12:33] LABS: BASOPHIL % 0.5 % (0.0-2.0); EOSINOPHIL % 0.2 % (0.0-4.0); HEMATOCRIT 36.5 % (35.0-46.0); HEMOGLOBIN 11.6 GM/DL (11.6-15.3); LYMPH % 26.8 % (9.0-44.0); LYMPHOCYTE # 2.5 TH/MM3 (1.0-4.8); MEAN CELL VOLUME 78.5 FL (80.0-100.0); MEAN CORPUSCULAR HEMOGLOBIN 24.9 PG (27.0-34.0); MEAN CORPUSCULAR HGB CONC 31.8 % (32.0-36.0); MEAN PLATELET VOLUME 8.6 FL (7.0-11.0); MONO % 7.5 % (0.0-8.0); MONOCYTE # 0.7 TH/MM3 (0-0.9); PLATELET COUNT 306 TH/MM3 (150-450); RED BLOOD COUNT 4.65 MIL/MM3 (4.00-5.30); RED CELL DISTRIBUTION WIDTH 27.5 % (11.6-17.2); WHITE BLOOD COUNT 9.2 TH/MM3 (4.0-11.0)
[2018-04-13 12:38] LABS: BACTERIA, URINE RARE /hpf; BILIRUBIN, URINE NEG (NEG); BLOOD, URINE NEG (NEG); GLUCOSE,URINE NEG (NEG); KETONE, URINE NEG (NEG); MUCUS URINE FEW /lpf (OCC); NITRITE,URINE NEG (NEG); SQUAMOUS EPITHELIAL CELL URINE 1 /hpf (0-5); URINE COLOR YELLOW (YELLW/STRAW); URINE LEUKOCYTE ESTERASE NEG (NEG)
--- NOTE | 2018-04-13 12:48 | PD ---
HPI Chief Complaint: Cardiac Complaint Time Seen by Provider: 12:00 Travel History International Travel<30 days: No Contact w/Intl Traveler<30days: No Traveled to known affect area: No History of Present Illness HPI 27-year-old female that presents to the ED for evaluation of chest pain, dizziness and shortness of breath. Per patient she has had this since having a cookie today. Per patient she does not know if the cookie was laced with something. She believes that it might have had THC. Per patient she is also a new medication for her lupus that she started yesterday and does not know if it is related. She states that she has had marijuana in the past and she did not do well with it. She states that currently she feels dizzy but no chest pain. Chest pain was found when EVAC was in route. Patient has a significant history of lupus disease and takes multiple medications for including prednisone. She does have a history of hyperglycemia. States that currently she has no chest pain but she feels somewhat short of breath and confused. History is a little bit limited as patient is very slow to provide any information. She does state that she feels dry and dizzy. Symptoms started about an hour before coming. Patient was brought here by ambulance. No medications were given. Patient denies any history of heart disease but has been admitted in the past for lupus related chest pain and pneumonitis. States having some chills for the past couple of days. No cough or runny nose. No abdominal pain. No urinary or bowel movement issues. PFSH Past Medical History Autoimmune Disease: Yes (Lupus) Cardiovascular Problems: No Diabetes: Yes Patient Takes Glucophage: No Diminished Hearing: No Endocrine: Yes Genitourinary: No Musculoskeletal: No Neurologic: No Reproductive: No Respiratory: Yes (pneumonia ) ?: Not LMP: NOV 2017 Tubal Ligation: Yes Past Surgical History Section: Yes (x2) Gynecologic Surgery: Yes Other Surgery: Yes Social History Alcohol Use: No Tobacco Use: No Substance Use: No Allergies-Medications (Allergen,Severity, Reaction): Coded Allergies: No Known Allergies (Verified Allergy, Unknown, 01/15/18) Reported Meds & Prescriptions Reported Meds & Active Scripts Active Easy Comfort Insulin Syr 31G X 5/16" 0.5 ml 31 Gauge X 5/16" Mis Ea .XX DIRECTED Easy Comfort Pen [place] 31G X 6 mm (Insulin Pen Needle/Easy Comfort 31G X 6mm) 31 Gauge X 1/4" Mis Box .XX DIRECTED Blood Glucose Test Strips Strips Strip Ea .XX DIRECTED Faye Contour Blood Gluco W/Device (Device) 1 Kit Kit Kit .XX DIRECTED Novolog Inj (Insulin Aspart) 1,000 Unit/10 Ml Vial 3 Units SQ TIDAC Levemir Inj (Insulin Detemir) 1,000 unit/ 10 ML Vial 20 Units SQ DAILY Do not mix with any other Insulin. Roller Walker (Misc. Devices) 1 Mis Mis Ea .XX NOW Reported Gabapentin 300 Mg Cap 300 Mg PO HS Amlodipine (Amlodipine Besylate) 10 Mg Tab 10 Mg PO DAILY Azathioprine 50 Mg Tab 50 Mg PO BID Hazardous agent use appropriate precautions for handling and disposal. Omeprazole 20 Mg Tab 20 Mg PO BID Plaquenil (Hydroxychloroquine Sulfate) 200 Mg Tab 200 Mg PO DAILY Take with food Prednisone 20 Mg Tab 20 Mg PO BID Ferrous Sulfate 325 Mg (65 Mg Iron) Tablet 325 Mg PO DAILY Review of Systems ROS Limitations: Poor Historian Except as stated in HPI: all other systems reviewed are Neg Physical Exam Exam Limitations: Poor Historian Narrative GENERAL: SKIN: Warm and dry. HEAD: Atraumatic. Normocephalic. EYES: Pupils equal and round. No scleral icterus. No injection or drainage. ENT: No nasal bleeding or discharge. Mucous membranes pink and moist. Tongue is midline. No uvula deviation. NECK: Trachea midline. No JVD. CARDIOVASCULAR: Regular rate and rhythm. No murmurs, S3, S4. RESPIRATORY: No accessory muscle use. Clear to auscultation. Breath sounds equal bilaterally. GASTROINTESTINAL: Abdomen soft, non-tender, nondistended. Hepatic and splenic margins not palpable. MUSCULOSKELETAL: Extremities without clubbing, cyanosis, or edema. No obvious deformities. Full range of motion of the upper and lower extremities bilaterally. 2+ pulses bilaterally. NEUROLOGICAL: Awake and alert. No obvious cranial nerve deficits. Motor grossly within normal limits. Five out of 5 muscle strength in the arms and legs. Normal speech. PSYCHIATRIC: Appropriate mood and affect; insight and judgment normal. Data Data Last Documented VS Vital Signs Date Time Temp Pulse Resp B/P (MAP) Pulse Ox O2 Delivery O2 Flow Rate FiO2 04/13/18 13:33 96 18 129/79 (96) 103 18 133/79 (97) 134 18 139/86 (103) 04/13/18 11:58 99.2 100 Orders Orders Electrocardiogram (04/13/18 12:03) Complete Blood Count With Diff (04/13/18 12:03) Comprehensive Metabolic Panel (04/13/18 12:03) Ckmb (Isoenzyme) Profile (04/13/18 12:03) Troponin I (04/13/18 12:03) Prothrombin Time / Inr (Pt) (04/13/18 12:03) Act Partial Throm Time (Ptt) (04/13/18 12:03) C-Reactive Protein (Crp) (04/13/18 12:03) Lipase (04/13/18 12:03) Urinalysis - C+S If Indicated (04/13/18 12:03) Magnesium (Mg) (04/13/18 12:03) Thyroid Stimulating Hormone (04/13/18 12:03) Chest, Single Ap (04/13/18 12:03) Iv Access Insert/Monitor (04/13/18 12:03) Ecg Monitoring (04/13/18 12:03) Oximetry (04/13/18 12:03) Drug Screen, Random Urine (04/13/18 12:03) Alcohol (Ethanol) (04/13/18 12:03) Ed Urine Pregnancytest Poc (04/13/18 12:03) Sodium Chlor 0.9% 1000 Ml Inj (Ns 1000 M (04/13/18 12:15) Orthostatic Vital Signs (04/13/18 13:09) Sodium Chlor 0.9% 1000 Ml Inj (Ns 1000 M (04/13/18 13:45) Sodium Chlor 0.9% 1000 Ml Inj (Ns 1000 M (04/13/18 14:00) Ed Discharge Order (04/13/18 15:31) Labs Laboratory Tests Test 04/13/18 12:14 04/13/18 12:19 White Blood Count 9.2 TH/MM3 Red Blood Count 4.65 MIL/MM3 Hemoglobin 11.6 GM/DL Hematocrit 36.5 % Mean Corpuscular Volume 78.5 FL Mean Corpuscular Hemoglobin 24.9 PG Mean Corpuscular Hemoglobin Concent 31.8 % Red Cell Distribution Width 27.5 % Platelet Count 306 TH/MM3 Mean Platelet Volume 8.6 FL Neutrophils (%) (Auto) 65.0 % Lymphocytes (%) (Auto) 26.8 % Monocytes (%) (Auto) 7.5 % Eosinophils (%) (Auto) 0.2 % Basophils (%) (Auto) 0.5 % Neutrophils # (Auto) 6.0 TH/MM3 Lymphocytes # (Auto) 2.5 TH/MM3 Monocytes # (Auto) 0.7 TH/MM3 Eosinophils # (Auto) 0.0 TH/MM3 Basophils # (Auto) 0.0 TH/MM3 CBC Comment AUTO DIFF Differential Total Cells Counted 100 Neutrophils % (Manual) 82 % Band Neutrophils % 2 % Lymphocytes % 11 % Monocytes % 1 % Neutrophils # (Manual) 8.1 TH/MM3 Metamyelocytes 1 % Myelocytes 3 % Differential Comment FINAL DIFF MANUAL Platelet Estimate NORMAL Platelet Morphology Comment NORMAL Ovalocytes 1+ Keratocytes 1+ Prothrombin Time 9.6 SEC Prothromb Time International Ratio 0.9 RATIO Activated Partial Thromboplast Time 19.5 SEC Urine Color YELLOW Urine Turbidity CLEAR Urine pH 6.0 Urine Specific [place] 1.016 Urine Protein TRACE mg/dL Urine Glucose (UA) NEG mg/dL Urine Ketones NEG mg/dL Urine Occult Blood NEG Urine Nitrite NEG Urine Bilirubin NEG Urine Urobilinogen 2.0 MG/DL Urine Leukocyte Esterase NEG Urine RBC LESS THAN 1 /hpf Urine WBC 1 /hpf Urine Squamous Epithelial Cells 1 /hpf Urine Bacteria RARE /hpf Urine Mucus FEW /lpf Microscopic Urinalysis Comment CULT NOT INDICATED Blood Urea Nitrogen 22 MG/DL Creatinine 0.74 MG/DL Random Glucose 161 MG/DL Total Protein 6.6 GM/DL Albumin 3.2 GM/DL Calcium Level 8.6 MG/DL Magnesium Level 2.0 MG/DL Alkaline Phosphatase 155 U/L Aspartate Amino Transf (AST/SGOT) 49 U/L Alanine Aminotransferase (ALT/SGPT) 74 U/L Total Bilirubin 0.2 MG/DL Sodium Level 143 MEQ/L Potassium Level 4.1 MEQ/L Chloride Level 107 MEQ/L Carbon Dioxide Level 26.4 MEQ/L Anion Gap 10 MEQ/L Estimat Glomerular Filtration Rate 116 ML/MIN Total Creatine Kinase 44 U/L Troponin I LESS THAN 0.02 NG/ML C-Reactive Protein LESS THAN 0.29 MG/DL Lipase 144 U/L Thyroid Stimulating Hormone 3rd Gen 0.700 uIU/ML Ethyl Alcohol Level LESS THAN 3 MG/DL Urine Opiates Screen NEG Urine Barbiturates Screen NEG Urine Amphetamines Screen NEG Urine Benzodiazepines Screen NEG Urine Cocaine Screen NEG Urine Cannabinoids Screen POS MDM Medical Decision Making Medical Screen Exam Complete: Yes Emergency Medical Condition: Yes Medical Record Reviewed: Yes Interpretation(s) EKG shows sinus tachycardia but no sign of acute ischemia and arrhythmia read by me and attending. CBC & BMP Diagram 04/13/18 12:14 Total Protein 6.6, Albumin 3.2 L, Calcium Level 8.6, Magnesium Level 2.0, Alkaline Phosphatase 155 H, Aspartate Amino Transf (AST/SGOT) 49 H, Alanine Aminotransferase (ALT/SGPT) 74 H, Total Bilirubin 0.2 Last Impressions Chest X-Ray 04/13/18 1203 Signed Impressions: CONCLUSION: Hypoinflation of the lungs. No evidence of acute cardiopulmonary disease. troponin and CKMB negative tox positive for marijuana Differential Diagnosis Chest pain versus typical chest pain versus substance abuse versus lupus related disease versus pneumonia versus ACS Narrative Course 27-year-old female that presents to the ED for evaluation of chest pain and possible substance intake. Patient was properly examined and was found to have signs and symptoms of unclear etiology. Labs and imaging order. Patient was given IV fluids. Labs and imaging showed no sign of acute disease alert and positive for THC. Case was discussed with my attending. My attending Dr Dee evaluated the patient herself and agrees with plan. Patient feels improved after fluids given. Dizziness has been gone. Chest pain is completely gone. Patient feels better. This appears to be likely reaction to the marijuana ingested to the cookie. Patient okay to go home. Feels comfortable going home. Recommendation is to avoid marijuana. Follow-up with PCP. See ED if worsening symptoms. Diagnosis Primary Impression: Marijuana intoxication Qualified Codes: F12.920 - Cannabis use, unspecified with intoxication, uncomplicated Patient Instructions: General Instructions Additional Instructions: Avoid marijuana. See ED if worsening symptoms. Follow-up with PCP. Med/Other Pt SpecificInfo: No Change to Meds Disposition: 01 DISCHARGE HOME Condition: Stable Abel Morales Apr 13, 2018 12:48
[2018-04-13 12:50] LABS: INTERNATIONAL NORMALIZED RATIO 0.9 RATIO; PROTHROMBIN TIME - PATIENT 9.6 SEC (9.8-11.6)
[2018-04-13 13:06] LABS: BANDS 2 % (0-6); LYMPHOCYTES 11 % (9-44); METAMYELOCYTES 1 % (0-1); MONOCYTES 1 % (0-8); MYELOCYTES 3 % (0-0); NEUTROPHIL # MANUAL DIFF 8.1 TH/MM3 (1.8-7.7); POLYS (SEG NEUTROPHILS) 82 % (16-70)
[2018-04-13 13:08] LABS: KERATOCYTES 1+ (NORMAL); OVALOCYTES 1+ (NORMAL)
[2018-04-13 13:22] LABS: ALBUMIN 3.2 GM/DL (3.4-5.0); ALKALINE PHOSPHATASE 155 U/L (45-117); ALT (GPT) 74 U/L (10-53); BICARBONATE 26.4 MEQ/L (21.0-32.0); BLOOD UREA NITROGEN 22 MG/DL (7-18); C-REACTIVE PROTEIN LESS THAN 0.29 MG/DL (0.00-0.30); CALCIUM 8.6 MG/DL (8.5-10.1); CHLORIDE 107 MEQ/L (98-107); CREATININE 0.74 MG/DL (0.50-1.00); GLOMERULAR FILTRATION RATE 116 ML/MIN (>89); GLUCOSE,RANDOM 161 MG/DL (74-106); SODIUM (NA) 143 MEQ/L (136-145); TOTAL BILIRUBIN ADULT 0.2 MG/DL (0.2-1.0); TOTAL PROTEIN 6.6 GM/DL (6.4-8.2); TROPONIN I LESS THAN 0.02 NG/ML (0.02-0.05)
[2018-04-13 13:23] LABS: AST (GOT) 49 U/L (15-37)
[2018-04-13 13:33] VITALS: BP_SYST 129; BP_SYST 133; BP_SYST 139; BP_DIAS 79; BP_DIAS 86; RESP 18
--- NOTE | 2018-04-14 17:55 | EKG ---
Date Performed: 04/13/2018 Time Performed: 12:07:59 PTAGE: 27 years EKG: SINUS TACHYCARDIA Compared to previous tracing, Supraventricular tachycardia has been [place] with sinus tachycardia with rate decreasing from 154 to 112. T-wave changes have improved ABNORMA L RHYTHM ECG PREVIOUS TRACING : 02/20/18 @ 1622 DOCTOR: Roby Brewer Interpretating Date/Time 04/14/2018 17:54:06
== END 2018-04-13 16:25 | disposition home or self-care (01) ==
LOC: NEPC 11:50
DX: F12.920 Cannabis use, unspecified with intoxication, uncomplicated (principal); M32.9 Systemic lupus erythematosus, unspecified; E11.9 Type 2 diabetes mellitus without complications; Z79.4 Long term (current) use of insulin; Z79.899 Other long term (current) drug therapy
CPT/HCPCS: 71045; 80053; 80307; 81001; 82550; 83690; 83735; 84443; 84484; 84703; 85007; 85027; 85610; 85730; 86140; 93005; 96360; 96361; 99285; J7030